=== PATIENT | male | born 1950 | race Caucasian/White ===

== ENCOUNTER 2016-07-09 12:43 | Inpatient (IN) | payer BC, OTHER ==
[~2016-07-09] VITALS: Ht 177.8 cm; Wt 108.0 kg
[~2016-07-09 12:43] MED LIST: ACET325T21; ASPI81TA2 PO; ATEN50TA PO; BUDE10.2 IH; CARI350T14 PO; CRESTOR40 MG PO; CYCL5TAB PO; DOXA2TAB2 PO; ENOX40DI3 SQ; FENO160T PO; FENT50VI IJ; FENT50VI6 IJ; FLUT1DIS3 IH; GABA600T2 PO; LOSA50TA6 PO; METF500T4 PO; METR500T IV; MULT-18 PO; OMEG500C PO; ONDA2VIA3 IV; OXYC15TA PO; OXYC1TAB9 PO; OXYC5TAB PO; POLY17PO29 PO; SENN1TAB37 PO; SENN8.6C2; TEMA30CA PO; TERA5CAP3 PO; TEST75GE TP; TRAM50TA PO; TRYP30OI2 TP; VANC1FRO IV; VITA400C36 PO; [UNRECOGNIZED DRUG - CODE] IV; [UNRECOGNIZED DRUG - CODE] PO
[2016-07-09 13:33] LABS: BASO # 0.1 x10^3/uL (0.0-0.2); BASO % 1 % (0-3); EOS % 2 % (0-3); HEMATOCRIT 48.2 % (39.0-53.0); HEMOGLOBIN 15.8 g/dL (13.0-17.5); LYMPH # 3.3 x10^3/uL (1.0-4.8); LYMPH % 37 % (24-48); MEAN CORPUSCULAR HEMOGLOBIN 28 pg (25-35); MEAN CORPUSCULAR HGB CONC 33 g/dL (31-37); MEAN CORPUSCULAR VOLUME 87 fL (79-100); MONO % 9 % (0-9); NEUT % 52 % (31-73); PLATELET COUNT 250 x10^3/uL (140-400); RED BLOOD COUNT 5.56 x10^6/uL (4.30-5.70); RED CELL DISTRIBUTION WIDTH 15.2 % (11.5-14.5); WHITE BLOOD COUNT 8.8 x10^3/uL (4.0-11.0)
[2016-07-09 13:42] LABS: PROTHROMBIN TIME PATIENT 12.9 SEC (11.7-14.0)
[2016-07-09 13:46] LABS: CALCIUM 8.5 mg/dL (8.5-10.1); CREATININE 1.1 mg/dL (0.7-1.3); GFR 67.4
[2016-07-09 13:46] LABS: BILIRUBIN,URINE NEGATIVE (NEG); GLUCOSE,URINE NEGATIVE (NEG); NITRITE,URINE NEGATIVE (NEG); PH,URINE 5.5; PROTEIN,URINE NEGATIVE (NEG-TRACE); UROBILINOGEN,URINE 0.2 mg/dL (0.2 mg/dL)
[2016-07-09 13:49] LABS: ETHANOL < 10 mg/dL (0-10)
[2016-07-09 13:52] LABS: ALBUMIN 3.3 g/dL (3.4-5.0); ALBUMIN/GLOBULIN RATIO 0.9 (1.0-1.7); TOTAL BILIRUBIN 0.3 mg/dL (0.2-1.0)
[2016-07-09 13:53] LABS: BARBITURATES NEG (NEG); BENZODIAZEPINES POS (NEG); CANNABINOIDS NEG (NEG); COCAINE NEG (NEG); METHADONE NEG (NEG); OPIATES POS (NEG); PHENCYCLIDINE NEG (NEG)
--- NOTE | 2016-07-09 14:00 | RAD ---
Examination: Single frontal view chest History: Shortness of breath, altered mental status. Comparison: 07/16/2013 Findings: The cardiomediastinal silhouette grossly appears unremarkable. There is no acute infiltrate or visualized pneumothorax. Right clavicle hardware is unchanged. Impression: No acute cardiopulmonary findings.
[2016-07-09 14:03] LABS: BACTERIA,URINE MANY /HPF (0-FEW); RBC,URINE 0 /HPF (0-2); SQUAMOUS EPITHELIAL CELL,UR OCC /LPF; WBC,URINE >40 /HPF (0-4)
--- NOTE | 2016-07-09 14:56 | RAD ---
CT head without contrast History: Altered mental status. Comparison: None. Procedure: Axial images are obtained of the head from the skull base through the vertex without IV contrast. Findings: Mild bilateral periventricular white matter hypodensities likely chronic small vessel ischemic disease. The ventricles and sulci are normal for the patient's age. No mass-effect, intracranial mass, midline shift, hemorrhage or obvious acute infarction is identified. Basilar cisterns are patent. Bone windows demonstrate no significant calvarial abnormality. The visualized paranasal sinuses appear clear. Impression: 1. No acute intracranial process. PQRS Compliance Statement: One or more of the following individualized dose reduction techniques were utilized for this examination: 1. Automated exposure control 2. Adjustment of the mA and/or kV according to patient size 3. Use of iterative reconstruction technique
[2016-07-09] MEDS ORDERED: NALOXONE 0.4 MG/ML VIAL. IV ONE (15:15)
[2016-07-09] MEDS ORDERED: IV NORMAL SALINE 1000ML BAG 1,000 ML IV ONE (15:15)
[2016-07-09] MEDS ORDERED: ACETAMINOPHEN 325 MG TABLET. PO PRN (15:15)
[2016-07-09] MEDS ORDERED: ONDANSETRON PF 4 MG/2 ML VIAL. IV PRN (15:15)
[2016-07-09] MEDS ORDERED: MORPHINE SULFATE 2 MG/ML DISP.SYRIN. IV PRN (15:15)
[2016-07-09] MEDS ORDERED: AZITHROMYCIN 500 MG in IV NORMAL SALINE 250ML 250 ML IV ONE (15:15)
[2016-07-09] MEDS ORDERED: AZITHRMYCN 500MG IVPB FOR OMNI 250 ML IV ONE (15:30)
--- NOTE | 2016-07-09 15:35 | PHYS DOC ---
Past Medical History Past Medical History: Asthma, Diabetes-Type II, High Cholesterol, Hypertension , Other Additional Past Medical Histor: PVD,INSOMNIA,SPINAL STENOSIS Past Surgical History: Other Additional Past Surgical Histo: RIGHT AKA Alcohol Use: Sober Additional Information: PATIENT STATES, "NOT IN A LONG TIME." Drug Use: None Adult General Chief Complaint Chief Complaint: ALTERED MENTAL STATUS HPI HPI Patient is a 66 year old male who presents with altered mental status. The patient states he wanted to see what would happen if he pulled the fire alarm at the [facility], so he tried it. He was then sent for evaluation because [facility] staff were concerned that he was acting abnormally. The patient denies any complaints at this time. States occasionally he feels somewhat confused and trails off when speaking. Denies fevers or chills, headache, vision changes, chest pain, shortness of breath, abdominal pain, nausea, vomiting, diarrhea, extremity numbness or weakness. History of DM, HTN, CAD s/ p cardiac stents. EMS says he is on dialysis which he denies. PCP is Dr. Rouse. Review of Systems Review of Systems Constitutional: Denies fever or chills Eyes: Denies change in visual acuity HENT: Denies nasal congestion or sore throat Respiratory: Denies cough or shortness of breath Cardiovascular: Denies chest pain or edema GI: Denies abdominal pain, nausea, vomiting, or diarrhea : Denies dysuria or hematuria Musculoskeletal: Denies back pain or joint pain Integument: Denies rash or skin lesions Neurologic: Reports altered mental status. Denies headache, focal weakness or sensory changes Current Medications Current Medications Allergies Allergies Allergies Coded Allergies Type Severity Reaction Last Updated Verified levofloxacin Allergy Intermediate 11/19/13 Yes Physical Exam Physical Exam Constitutional: obese, no acute distress, non-toxic appearance. HENT: Normocephalic, atraumatic, bilateral external ears normal, oropharynx moist, nose normal. Eyes: PERRLA, EOMI, conjunctiva normal, no discharge. Neck: supple, no stridor. Cardiovascular: RRR, no murmurs, no edema. Lungs & Thorax: LCTAB, no wheezing, no respiratory distress. Abdomen: soft, nontender, nondistended. Skin: Warm, dry, no erythema, no rash. Back: No tenderness. Extremities: No tenderness, no edema. right AKA Neurologic: Alert and oriented X 3, CN2-12 grossly intact, symmetric strength/ sensation to UE & LE, no focal deficits noted. Psychologic: flat affect Current Patient Data Vital Signs Vital Signs Date Time Temp Pulse Resp B/P (MAP) Pulse Ox O2 Delivery O2 Flow Rate FiO2 07/09/16 13:45 52 14 75/45 (55) 92 Nasal Cannula 2.0 07/09/16 12:43 98.6 98.6 Lab Values Laboratory Tests Test 07/09/16 13:18 07/09/16 13:38 White Blood Count 8.8 x10^3/uL (4.0-11.0) Red Blood Count 5.56 x10^6/uL (4.30-5.70) Hemoglobin 15.8 g/dL (13.0-17.5) Hematocrit 48.2 % (39.0-53.0) Mean Corpuscular Volume 87 fL (79-100) Mean Corpuscular Hemoglobin 28 pg (25-35) Mean Corpuscular Hemoglobin Concent 33 g/dL (31-37) Red Cell Distribution Width 15.2 % (11.5-14.5) H Platelet Count 250 x10^3/uL (140-400) Neutrophils (%) (Auto) 52 % (31-73) Lymphocytes (%) (Auto) 37 % (24-48) Monocytes (%) (Auto) 9 % (0-9) Eosinophils (%) (Auto) 2 % (0-3) Basophils (%) (Auto) 1 % (0-3) Neutrophils # (Auto) 4.6 x10^3uL (1.8-7.7) Lymphocytes # (Auto) 3.3 x10^3/uL (1.0-4.8) Monocytes # (Auto) 0.8 x10^3/uL (0.0-1.1) Eosinophils # (Auto) 0.1 x10^3/uL (0.0-0.7) Basophils # (Auto) 0.1 x10^3/uL (0.0-0.2) Prothrombin Time 12.9 SEC (11.7-14.0) Prothrombin Time INR 1.0 (0.8-1.1) PTT 34 SEC (24-38) Sodium Level 140 mmol/L (136-145) Potassium Level 5.0 mmol/L (3.5-5.1) Chloride Level 101 mmol/L (98-107) Carbon Dioxide Level 33 mmol/L (21-32) H Anion Gap 6 (6-14) Blood Urea Nitrogen 32 mg/dL (8-26) H Creatinine 1.1 mg/dL (0.7-1.3) Estimated GFR (Cockcroft-Gault) 67.4 BUN/Creatinine Ratio 29 (6-20) H Glucose Level 148 mg/dL (70-99) H Calcium Level 8.5 mg/dL (8.5-10.1) Total Bilirubin 0.3 mg/dL (0.2-1.0) Aspartate Amino Transferase (AST) 23 U/L (15-37) Alanine Aminotransferase (ALT) 27 U/L (16-63) Alkaline Phosphatase 89 U/L (46-116) Troponin I Quantitative 0.072 ng/mL (0.000-0.055) QU-Mvo-R-Type Natriuretic Peptide 797 pg/mL (0-124) H Total Protein 7.0 g/dL (6.4-8.2) Albumin 3.3 g/dL (3.4-5.0) L Albumin/Globulin Ratio 0.9 (1.0-1.7) L Salicylates Level 3.1 mg/dL (2.8-20.0) Salicylate Last Dose Date Unk Salicylate Last Dose Time Unk Acetaminophen Level < 2 mcg/ml (10-30) L Acetaminophen Last Dose Date Unk Acetaminophen Last Dose Time Unk Ethyl Alcohol Level < 10 mg/dL (0-10) Urine Collection Type Unknown Urine Color Yellow Urine Clarity Cloudy Urine pH 5.5 Urine Specific Ralph 1.010 Urine Protein Negative mg/dL (NEG-TRACE) Urine Glucose (UA) Negative mg/dL (NEG) Urine Ketones (Stick) Negative mg/dL (NEG) Urine Blood Negative (NEG) Urine Nitrite Negative (NEG) Urine Bilirubin Negative (NEG) Urine Urobilinogen Dipstick 0.2 mg/dL (0.2 mg/dL) Urine Leukocyte Esterase Large (NEG) Urine RBC 0 /HPF (0-2) Urine WBC >40 /HPF (0-4) Urine Squamous Epithelial Cells Occ /LPF Urine Bacteria Many /HPF (0-FEW) Urine Opiates Screen Pos (NEG) Urine Methadone Screen Neg (NEG) Urine Barbiturates Neg (NEG) Urine Phencyclidine Screen Neg (NEG) Urine Amphetamine/Methamphetamine Neg (NEG) Urine Benzodiazepines Screen Pos (NEG) Urine Cocaine Screen Neg (NEG) Urine Cannabinoids Screen Neg (NEG) Urine Ethyl Alcohol Neg (NEG) Laboratory Tests 07/09/16 13:18 Laboratory Tests 07/09/16 13:18 EKG EKG 1310 interpreted by me: NSR rate 56, <[address] elevation in 1 & aVL, <1mm ST depression with T wave inversion, T wave inversions in V3-V6, normal intervals, no ectopy. ischemic changes are new from 11/19/2013 1340 interpreted by me: NSR rate 53, persistent ischemic changes as above no significant change, normal intervals, no ectopy. Radiology/Procedures Radiology/Procedures PROCEDURE: CHEST AP ONLY Examination: Single frontal view chest History: Shortness of breath, altered mental status. Comparison: 07/16/2013 Findings: The cardiomediastinal silhouette grossly appears unremarkable. There is no acute infiltrate or visualized pneumothorax. Right clavicle hardware is unchanged. Impression: No acute cardiopulmonary findings. DICTATED and SIGNED BY: JYOTSNA MCDONALD MD DATE: 07/09/16 2579 PROCEDURE: CT HEAD WO CONTRAST CT head without contrast History: Altered mental status. Comparison: None. Procedure: Axial images are obtained of the head from the skull base through the vertex without IV contrast. Findings: Mild bilateral periventricular white matter hypodensities likely chronic small vessel ischemic disease. The ventricles and sulci are normal for the patient's age. No mass-effect, intracranial mass, midline shift, hemorrhage or obvious acute infarction is identified. Basilar cisterns are patent. Bone windows demonstrate no significant calvarial abnormality. The visualized paranasal sinuses appear clear. Impression: 1. No acute intracranial process. PQRS Compliance Statement: One or more of the following individualized dose reduction techniques were utilized for this examination: 1. Automated exposure control 2. Adjustment of the mA and/or kV according to patient size 3. Use of iterative reconstruction technique DICTATED and SIGNED BY: JYOTSNA MCDONALD MD DATE: 07/09/16 5565[] Course & Med Decision Making Course & Med Decision Making Pertinent Labs and Imaging studies reviewed. (See chart for details) Patient presents with altered mental status. No significant neurologic deficit. EKG showing ischemic changes from previous although denies any chest pain. Repeated EKG which showed no significant change. Consulted with Dr. Stauffer of cardiology, recommends serial EKG & troponin. Will give aspirin here. Patient had transient hypotension as low as 74/47, gave IV fluid bolus with improvement to low normal range. Hypoxic on arrival with oxygen saturation in the mid 80s. Placed oxygen by nasal cannula with improvement to mid 90s. Gave Narcan 0.4 mg IV and his blood pressure improved and he seemed more awake but during initial examination. No evidence of infection at this time, transiently hypotensive but no fever, tachycardia, leukocytosis. With low oxygen saturation will give single dose of Rocephin and azithromycin for possible pneumonia although symptoms more likely explained by overdose of pain medication. Recommended admission to the hospital for further evaluation and treatment. The patient agreed with plan of care. Discussed with Dr. Avalos who agrees to admit to inpatient status. The patient is admitted in stable condition. Dragon Disclaimer Dragon Disclaimer This electronic medical record was generated, in whole or in part, using a voice recognition dictation system. Departure Departure Impression: Primary Impression: Altered mental status Additional Impression: Hypotension Disposition: ADMITTED INPATIENT Condition: STABLE Problem Qualifiers AURA JACOB MD July 09, 2016 15:35
[2016-07-09] MEDS: IV NORMAL SALINE 1000ML BAG 1,000 ML IV SCH ×2 (16:00→23:50)
--- NOTE | 2016-07-09 16:04 | ACF ---
Admission Forms Criteria MENTAL STATUS CHANGE Clinical Indications for Inpatient Care (Place 'X' for any and all applicable criteria): Ongoing inpatient care may be needed for 1 or more of the following(1)(2)(3)(5)( 6): [X]I. Suspected serious etiology (eg, medical disorder, MANAGER STATISTICAL event) of altered mental status [ ]II. Danger to self or others not manageable at lower level of care [ ]III. Grave disability (eg, inability to perform self care necessary at lower level of care) [ ]IV. Agitation or inappropriate behavior interfering with care for primary condition (eg, attempting to discontinue lines or drains prematurely, unable to cooperate with respiratory care) [ ]V. Delirium [A] [D][E] as described by 1 or more of the following(26): [ ]a) Delirium due to alcohol or sedative [F] withdrawal [ ]b) Delirium of uncertain etiology that has not responded to appropriate empiric treatment [ ]c) Delirium that prevents performance of a life-sustaining function (eg, feeding or hydrating oneself) [ ]. General contraindications and/or Inappropriate clinical situations for Observational Care in patients with Mental Status Change, when ANY ONE of the following is required: [ ]a) Prediction of prolongation of LOS based on ANY ONE of the following may be considered as a contraindication for observational care 2, 3, 4, 5, 6, 7, 8, 9, 10, 11 [ ]i) Age > 65 yrs. [ ]ii) Patient arriving by ambulance [ ]iii) Patient with high acuity [ ]iv) Patient requiring vital sign monitoring [ ]v) Patient on IV medication [ ]b) Systolic blood pressures greater than or equal to 180mmHg 3, 12 [ ]c) Patient with altered mental status including delirium and other alteration of consciousness, (3) [ ]d) Patient whose discharge disposition will be to a fdc home or rehabilitation home should not be managed in Emergency Department Observation Unit. CMS rule requires 3 days hospital stay before such placement.3,13 [ ]e) Patient with failure to thrive due to broad array of etiologies 3,16,17 [ ]f) Inability to ambulate 3,14 Extended stay beyond goal length of stay for the primary condition may be needed until ALL of the following are present(3)(5): [ ]a) Underlying medical etiology of mental status change is absent, or has been established and adequately treated [ ]b) Danger to self or others is absent or manageable at lower level of care. [ ]c) Behavior crisis management, including physical or chemical restraints, is not required or available at lower level of car [ ]d) Substance or alcohol withdrawal is absent or manageable at lower level of care. [ ]e) Behavioral symptoms (eg, agitation, somnolence, inappropriate behavior) are absent, or are manageable at lower level of care. The original [facility] content created by [facility] has been revised. The portions of the content which have been revised are identified through the use of italic text or in bold, and [facility] has neither reviewed nor approved the modified material. All other unmodified content is copyright [facility]. Please see references footnoted in the original [facility] edition 2016 Admission Criteria Met?: Yes ROSSY CHAIREZ July 09, 2016 16:04
[2016-07-09] MEDS ORDERED: ASPIRIN 325 MG TABLET PO ONE (16:45)
[2016-07-09] MEDS ORDERED: ACET325T9 PO (18:56)
[2016-07-09] MEDS ORDERED: TEST5GEL TP (18:59)
[2016-07-09] MEDS ORDERED: ASCO500T3 PO (19:01)
[2016-07-09] MEDS ORDERED: BACL10TA PO (19:03)
[2016-07-09] MEDS ORDERED: INSU100C SQ (19:05)
[2016-07-09] MEDS ORDERED: INSU100I11 SQ (19:08)
[2016-07-09] MEDS ORDERED: INSU100V8 SQ (19:11)
[2016-07-09] MEDS ORDERED: LOPE2CAP88 PO (19:11)
[2016-07-09] MEDS ORDERED: FURO-68 PO (19:11)
[2016-07-09] MEDS ORDERED: ESCI10TA PO (19:12)
[2016-07-09] MEDS ORDERED: ESCI5TAB8 PO (19:13)
[2016-07-09] MEDS ORDERED: PREG75CA PO (19:14)
[2016-07-09] MEDS ORDERED: MAGN400C PO (19:15)
[2016-07-09] MEDS ORDERED: NITR0.4T SL (19:17)
[2016-07-09] MEDS ORDERED: MORP30TA83 PO (19:17)
[2016-07-09] MEDS ORDERED: AMLO10TA4 PO (19:18)
[2016-07-09] MEDS ORDERED: POTASSIUM CHLO10 MEQ PO (19:21)
[2016-07-09] MEDS ORDERED: OXYC15TA PO (19:21)
[2016-07-09] MEDS ORDERED: CARI350T PO (19:26)
[2016-07-09] MEDS ORDERED: [UNRECOGNIZED DRUG - CODE] PO (19:27)
[2016-07-09] MEDS ORDERED: CHOL500016 PO (19:28)
[2016-07-09 19:30] VITALS: BP 91/53
[2016-07-09] MEDS ORDERED: ZINC30OI TP (19:30)
--- NOTE | 2016-07-09 20:10 | HP ---
ADMIT DATE: 07/09/2016 CHIEF COMPLAINT: Confusion. HISTORY OF PRESENT ILLNESS: The patient is a 66-year-old gentleman residing in the [facility] for the past 3 years with past medical history of right AKA, diabetes mellitus, and hypertension who presented to the hospital with altered mental status at the long term. According to crew, and he does confirm the account, he decided to find out what would happen if he pulled the fire alarm. He relates that he initially thought that the fire alarm box itself seemed a little rickety on the wall, and he wanted to test its sturdiness and managed to pull the lever. He then decided to observe what would happen and was apparently disappointed that the fire crew did not arrive for 20 minutes and people were not evacuated, although he told them that he had pulled the fire alarm to "test them." He denies any fevers, chills, headaches, vision problems, urinary complaints, chest pain, shortness of breath, cough, or abdominal issues including nausea and diarrhea. His family including his brother and daughter are present during the exam and relate that his mental status seems to be currently at baseline. In the Emergency Room, he was found with hypotension, positive UA, and therefore was admitted with suspected urosepsis. PAST MEDICAL HISTORY: Diabetes mellitus, hypertension, hypercholesterolemia, asthma, peripheral vascular disease, spinal stenosis with chronic lower back pain, and insomnia. FAMILY HISTORY: Positive for hypertension and diabetes. SOCIAL HISTORY: Currently in a long term. No toxic habits. ALLERGIES: LEVOFLOXACIN, UNKNOWN REACTION. MEDICATIONS: MAR reconciled with home medications. REVIEW OF SYSTEMS: The patient complains of lower back pain and leg pain. He states both of these are chronic. He denies any shortness of breath or any other symptoms. Please refer to HPI. PHYSICAL EXAMINATION: VITAL SIGNS: Currently show a blood pressure of 98/51, heart rate of 54, and respiratory rate of 14. No temperature available. GENERAL: This is a morbidly obese, 66-year-old, gentleman. Awake, alert, oriented x3, save for exact date, in no acute distress. Speech is slightly slurred, apparently normal for him. HEENT: Shows no scleral icterus. NECK: Supple. Oral mucosa is pink and moist. LUNGS: Clear to auscultation bilaterally. HEART: Has regular rate and rhythm. ABDOMEN: Obese, positive bowel sounds without any tenderness to palpation. EXTREMITIES: Show no edema. Right lower extremity is surgically absent below the upper thigh. SKIN: Warm, soft, and dry without any rash. LABORATORY DATA: CBC with a WBC of 8.8, hemoglobin 15.8, and platelets of 250. Chemistries with a BUN and creatinine of 32 and 1.1, normal electrolytes. LFTs are within normal, albumin is 3.3. Urine with large leukocyte esterase, wbc's greater than 40, and nitrite negative. On toxicity screen, opiates as well as benzodiazepines are positive. IMAGING: CT of the head is essentially negative for acute intracranial process. Chest x-ray obtained as well showing no cardiopulmonary findings. ASSESSMENT AND PLAN: The patient is a 66-year-old long term patient with diabetes, hypertension, and peripheral vascular disease who presented with mild mental status changes and has been found with a urinary tract infection. He has been started empirically on ceftriaxone. He got azithromycin in the Emergency Room as well for unclear reasons. We will continue IV fluids as needed to maintain his blood pressure, currently fairly stable. Monitor him closely with vital signs. Diabetes mellitus is currently fairly well controlled. We will continue insulin sliding scale with a glucose fingersticks 4 times a day. We will continue all his home medications. The list is extensive. Multiple pain medications for his back pain specifically will be continued, albeit with caution, given his mental status. Prophylaxis will be obtained with heparin subcutaneous. CHANCE COFFEY MD DR: MICHAEL/eric JOB#: [id number] / [id number] [place]
[2016-07-09 23:30] VITALS: BP 148/73
[2016-07-10] VITALS (7 sets, daily range): BP systolic 158–217; BP diastolic 69–92
[2016-07-10] MEDS: IV NORMAL SALINE 1000ML BAG 1,000 ML IV SCH ×2 (07:31→19:11)
[2016-07-10] MEDS ORDERED: ATENOLOL 25 MG TABLET. PO SCH (09:00)
[2016-07-10] MEDS: amLODIPine BESYLATE 10 MG TABLET PO SCH (09:00)
[2016-07-10] MEDS ORDERED: LOSARTAN POTASSIUM 50 MG TABLET. PO SCH (09:00)
--- NOTE | 2016-07-10 09:04 | PDOC2 ---
CARDIOLOGY CONSULT NOTE CHEIF COMPLAINT: Confusion Problems: HPI: 66 y.o male with mmp presenting with mental status changes Pulled fire alarm at [facility] for unclear reasons. Found to have urosepsis in ER Cardiology called for elevated troponin and non-specific EKG changes Poor historian. Denies any recent chest pain, dyspnea. Currently struggling with nausea. Reports prior history of PCI but also notes some abn recent stress testing. ? Unclear historian. Trop peak at 0.1 PMHX: Biliary stents HTN DM2 PAD s/p R aka CAD s/p PCI SOCHX: Lives at [facility]. Denies any alcohol, tob or illicits. FAMHX: NC CURRENT MEDS: Current Medications Medications (Trade) Dose Ordered Sig/Aimee Start Time Stop Time Status Last Admin Dose Admin Acetaminophen (Tylenol) 650 mg PRN Q4HRS PRN 07/09/16 15:15 07/10/16 15:14 Aspirin (Juan Francisco Aspirin) 325 mg 1X ONCE 07/09/16 16:45 07/09/16 16:46 DC 07/09/16 16:44 325 MG Azithromycin 250 ml @ 250 mls/hr 1X ONCE 07/09/16 15:30 07/09/16 16:29 DC 07/09/16 16:44 250 MLS/HR Azithromycin 500 mg/Sodium Chloride 250 ml @ 250 mls/hr 1X ONCE 07/09/16 15:15 07/09/16 16:14 UNV Ceftriaxone Sodium 1 gm/ Sodium Chloride 50 ml @ 100 mls/hr Q24H 07/10/16 09:00 Ceftriaxone Sodium 50 ml @ 100 mls/hr 1X ONCE 07/09/16 15:15 07/09/16 15:44 DC 07/09/16 15:59 100 MLS/HR Morphine Sulfate 2 mg PRN Q2HR PRN 07/09/16 15:15 07/10/16 15:14 Naloxone HCl (Narcan) 0.4 mg 1X ONCE 07/09/16 15:15 07/09/16 15:24 DC 07/09/16 15:35 0.4 MG Ondansetron HCl (Zofran) 4 mg PRN Q8HRS PRN 07/09/16 15:15 07/10/16 15:14 07/10/16 08:39 4 MG Sodium Chloride 1,000 ml @ 1,000 mls/hr 1X ONCE 07/09/16 15:15 07/09/16 16:14 DC 07/09/16 14:00 1,000 MLS/HR ALLERGIES: Allergies Coded Allergies Type Severity Reaction Last Updated Verified levofloxacin Allergy Intermediate 11/19/13 Yes ROS: Negative for 12/10 systems reviewed unless otherwise noted above in HPI. PHYSICAL EXAM: Vital Signs: Vital Signs Date Time Temp Pulse Resp B/P (MAP) Pulse Ox O2 Delivery O2 Flow Rate FiO2 07/10/16 02:33 98.0 72 18 171/69 (103) 93 Nasal Cannula 2.0 98.0 I & O Intake and Output 07/10/16 07:00 Intake Total 2650 ml Balance 2650 ml Intake Oral 100 ml IV Total 2550 ml # Voids 6 # Bowel Movements 1 Physical Exam: Gen: He is distressed from n/v HEENT: NC/AT. EOMI CVS: RRR. no m/r/g, distant heart sounds PULM: Decreased breath sounds at the bases. ABD: Soft, mildly tender to palpation. EXT: No edema in the LLE. Diminished pulses. DIAGNOSTIC TESTING: Cr 1.1, Trop peak 0.1. BNP 797, UA > [address] head and cXR negative. EKG with SR and non-specific ST/T changes. No clear ELMER ASSESSMENT: 1. Elevated troponin in the setting of urosepsis 2. HTN 3. PAD 4. CAD s/p prior remote PCI. PLAN: 1. Continue home meds. 2. Currently his EKG and biomarkers in conjunction with his symptoms/ presentation do not seem to represent a ischemic insult, nonetheless given his risk factors, he probably warrants a stress evaluation after stabilization of his urosepsis issues. 3. Supportive care with IV hydralazine for BP control until able to tolerate p.o. 4. Suspect trop elevation due to infection. Continue to monitor for symptoms. JIL CHRISTENSEN MD July 10, 2016 09:04
[2016-07-10] MEDS: hydrALAZINE 20 MG/ML VIAL. IVP PRN ×3 (09:08→19:07)
[2016-07-10] MEDS: METOCLOPRAMIDE HCL 10 MG/2 ML VIAL. IV PRN (09:54)
--- NOTE | 2016-07-10 12:49 | EKG ---
[facility] [address] [place] [address] Test Date: 2016-07-09 Test Time: 13:10:25 Pat Name: MAGDA SAUCEDO Department: Room: 252 1 Gender: Male Metal Technician: : 1950 Requested By: AURA JACOB Order Number: [id number] Reading MD: Ananda Stauffer Measurements Intervals [place] Rate: 56 P: 59 CT: 198 QRS: -24 QRSD: 88 T: -26 QT: 378 QTc: 367 Interpretive Statements SINUS RHYTHM NON-SPECIFIC ST/T CHANGES CANNOT RULE OUT ISCHEMIA Electronically Signed On 07-11-2016 15:01:33 CDT by Ananda Stauffer
--- NOTE | 2016-07-10 12:50 | EKG ---
[facility] [address] [place] [address] Test Date: 2016-07-09 Test Time: 13:40:56 Pat Name: MAGDA SAUCEDO Department: Room: 252 1 Gender: Male Technology Sales Representative: : 1950 Requested By: AURA JACOB Order Number: [id number] Reading MD: Ananda Stauffer Measurements Intervals [place] Rate: 53 P: 41 MD: 202 QRS: -26 QRSD: 88 T: -54 QT: 388 QTc: 366 Interpretive Statements SINUS RHYTHM NON-SPECIFIC ST/T CHANGES CANNOT RULE OUT INFERO-LATERAL ISCHEMIA Electronically Signed On 07-11-2016 15:01:52 CDT by Ananda Stauffer
--- NOTE | 2016-07-10 13:02 | EKG ---
[facility] [address] [place] [address] Test Date: 2016-07-10 Test Time: 04:58:08 Pat Name: MAGDA SAUCEDO Department: Room: 252 1 Gender: Male Science Consultant: KOKI : 1950 Requested By: AURA JACOB Order Number: [id number] Reading MD: Ananda Stauffer Measurements Intervals [place] Rate: 77 P: 54 AL: 202 QRS: -26 QRSD: 88 T: -77 QT: 320 QTc: 364 Interpretive Statements SINUS RHYTHM LEFTWARD AXIS R-S TRANSITION ZONE IN V LEADS DISPLACED TO THE LEFT LVH WITH REPOLARIZATION ABNORMALITY ABNORMAL ECG CANNOT RULE OUT INFEROLATERAL ISCHEMIA Electronically Signed On 07-12-2016 9:55:02 CDT by Ananda Stauffer
--- NOTE | 2016-07-10 14:57 | PDOC ---
PROGRESS NOTES Chief Complaint Chief Complaint AMS ASSESSMENT AND PLAN: 1. Toxic encephalopathy from infect (GNR UTI). improving 2. UTI: GNR in prelim report. ceftriax empirically 3. C.diff colitis: new dx. start vanco PO 4. DM: well controlled on current regimen. 5. HTN: poorly controlled today (recovered from hypotension). resume home regimen 6. PAD: hx AKA. no acute issues 7. Chronic back pain: cont home pain regimen 8. Prophylaxis: lovenox History of Present Illness History of Present Illness feels poorly today. generalized malaise, myalgias. denies abd pain. + diarrhea Vitals Vitals Vital Signs Date Time Temp Pulse Resp B/P (MAP) Pulse Ox O2 Delivery O2 Flow Rate FiO2 07/10/16 13: 109 179/83 07/10/16 11:49 98.0 22 93 Room Air 98.0 07/10/16 08:15 2.0 Physical Exam General: Alert, Cooperative, No acute distress Heart: Regular rate Lungs: Clear Abdomen: No tenderness, Other (decreased bowel sounds) Extremities: Other (trace edema L LE. AKA R) Skin: No rashes Labs LABS Laboratory Tests Test 07/09/16 15:50 07/09/16 19:45 07/09/16 19:49 07/09/16 20:45 Lactic Acid Level 2.0 mmol/L (0.4-2.0) Nasal Screen MRSA (PCR) Negative (Negative) Glucose (Fingerstick) 109 mg/dL (70-99) Troponin I Quantitative 0.074 ng/mL (0.000-0.055) Test 07/09/16 21:12 07/10/16 03:30 07/10/16 06:30 07/10/16 08:41 Glucose (Fingerstick) 170 mg/dL (70-99) 151 mg/dL (70-99) Troponin I Quantitative 0.100 ng/mL (0.000-0.055) Clostridium difficile Toxin (PCR) Positive (Negative) Test 07/10/16 11:41 07/10/16 14:00 Glucose (Fingerstick) 175 mg/dL (70-99) Troponin I Quantitative 0.061 ng/mL (0.000-0.055) CHANCE COFFEY MD July 10, 2016 14:57
[2016-07-10] MEDS: PREGABALIN 75 MG CAPSULE PO SCH ×2 (15:00→21:00)
[2016-07-10] MEDS ORDERED: ACETAMINOPHEN 325 MG TABLET. PO PRN (15:00)
[2016-07-10] MEDS ORDERED: CARISOPRODOL 350 MG TABLET PO PRN (15:00)
[2016-07-10] MEDS ORDERED: NITROGLYCERIN SUBLINGUAL 0.4 MG BOTTLE OF 25. SL PRN (15:00)
[2016-07-10] MEDS ORDERED: oxyCODONE IR 5 MG TABLET PO PRN (15:30)
[2016-07-10] MEDS: ASCORBIC ACID 500 MG TABLET PO SCH (16:00)
[2016-07-10] MEDS: ASPIRIN CHEWABLE 81 MG TABLET. PO SCH (16:00)
[2016-07-10] MEDS: FUROSEMIDE 40 MG TABLET. PO SCH (16:00)
[2016-07-10] MEDS: LOSARTAN POTASSIUM 50 MG TABLET. PO SCH (16:00)
[2016-07-10] MEDS: VANCOMYCIN 250 MG/5 ML ORAL SOLUTION. PO SCH ×2 (16:04→21:51)
[2016-07-10] MEDS: PROCHLORPERAZINE 10 MG/2 ML VIAL. IV PRN (16:04)
[2016-07-10] MEDS: INSULIN ASPART 300 UNITS/3 ML INSULN.PEN SQ SCH ×2 (16:30)
[2016-07-10] MEDS: ONDANSETRON PF 4 MG/2 ML VIAL. IV PRN (19:10)
[2016-07-10] MEDS ORDERED: LABETALOL 20 MG/4 ML DISP.SYRIN. IVP PRN (20:15)
[2016-07-10] MEDS: ESCITALOPRAM 10 MG TABLET. PO SCH (21:00)
[2016-07-10] MEDS ORDERED: ATORVASTATIN CALCIUM 40 MG TABLET. PO SCH (21:00)
[2016-07-10] MEDS: ATENOLOL 50 MG TABLET. PO SCH (21:00)
[2016-07-10] MEDS: ATORVASTATIN CALCIUM 40 MG TABLET. PO SCH (21:00)
[2016-07-10] MEDS: MORPHINE ER 15 MG TABLET.ER PO SCH (21:00)
[2016-07-10] MEDS: INSULIN DETEMIR 300 UNITS/3 ML INSULN.PEN. SQ SCH (21:51)
[2016-07-11] MEDS: PROCHLORPERAZINE 10 MG/2 ML VIAL. IV PRN (01:43)
[2016-07-11 03:00] VITALS: BP 186/90
[2016-07-11] MEDS: hydrALAZINE 20 MG/ML VIAL. IVP PRN (03:26)
[2016-07-11] MEDS: METOCLOPRAMIDE HCL 10 MG/2 ML VIAL. IV PRN ×2 (03:26→14:23)
[2016-07-11] MEDS: ONDANSETRON PF 4 MG/2 ML VIAL. IV PRN (05:38)
[2016-07-11 05:59] LABS: CALCIUM 8.9 mg/dL (8.5-10.1); CREATININE 0.8 mg/dL (0.7-1.3); GFR 97.3; MAGNESIUM 1.5 mg/dL (1.8-2.4)
[2016-07-11 06:04] LABS: HEMATOCRIT 52.6 % (39.0-53.0); HEMOGLOBIN 17.7 g/dL (13.0-17.5); POTASSIUM 2.8 mmol/L (3.5-5.1); RED BLOOD COUNT 6.24 x10^6/uL (4.30-5.70); RED CELL DISTRIBUTION WIDTH 15.1 % (11.5-14.5)
[2016-07-11 07:00] VITALS: BP 156/83
[2016-07-11] MEDS ORDERED: POTASSIUM CHLORIDE 20 MEQ TABLET.ER. PO ONE ×3 (07:00→18:30)
[2016-07-11] MEDS: INSULIN ASPART 300 UNITS/3 ML INSULN.PEN SQ SCH ×6 (07:30→18:37)
[2016-07-11] MEDS: POTASSIUM CHLORIDE 10MEQ 100 ML IV SCH ×4 (08:00→12:10)
--- NOTE | 2016-07-11 08:20 | EKG ---
[facility] [address] [place] [address] Test Date: 2016-07-11 Test Time: 07:59:45 Pat Name: MAGDA SAUCEDO Department: Room: 534 1 Gender: M Electronic Gluer: : 1950 Requested By: AURA JACOB Order Number: [id number] Reading MD: Ananda Stauffer Measurements Intervals [place] Rate: 76 P: 43 TN: 188 QRS: -39 QRSD: 90 T: -65 QT: 448 QTc: 509 Interpretive Statements SINUS RHYTHM ANTERIOR ISCHEMIA OR LEFT VENTRICULAR STRAIN LATERAL ISCHEMIA OR LEFT VENTRICULAR STRAIN POSSIBLE INFERIOR INFARCT Electronically Signed On 07-12-2016 10:43:44 CDT by Ananda Stauffer
[2016-07-11] MEDS: VANCOMYCIN 250 MG/5 ML ORAL SOLUTION. PO SCH ×4 (08:37→20:48)
[2016-07-11] MEDS: IV NORMAL SALINE 1000ML BAG 1,000 ML IV SCH ×2 (08:37→23:03)
[2016-07-11] MEDS: PREGABALIN 75 MG CAPSULE PO SCH ×3 (09:00→20:50)
[2016-07-11] MEDS: FUROSEMIDE 40 MG TABLET. PO SCH (09:00)
[2016-07-11] MEDS: CARISOPRODOL 350 MG TABLET PO SCH (09:00)
[2016-07-11] MEDS: ASPIRIN CHEWABLE 81 MG TABLET. PO SCH (09:00)
[2016-07-11] MEDS ORDERED: amLODIPine BESYLATE 10 MG TABLET PO SCH (09:00)
[2016-07-11] MEDS: ASCORBIC ACID 500 MG TABLET PO SCH (09:00)
[2016-07-11 11:00] VITALS: BP 191/83
--- NOTE | 2016-07-11 12:14 | PDOC ---
CARDIO Progress Notes Date and Time Date of Service 07/11/2016 Time of Evaluation 1200 Subjective Subjective: No Chest Pain, No Palpitations, No Dizziness, Other (cough) Vitals Vitals Vital Signs Date Time Temp Pulse Resp B/P (MAP) Pulse Ox O2 Delivery O2 Flow Rate FiO2 07/11/16 05:39 97 183/79 07/11/16 03:00 99.0 20 92 Nasal Cannula 2.0 99.0 Weight Weight [ ] Input and Output Intake and Output Intake and Output 07/11/16 07:00 Intake Total 665 ml Output Total 350 ml Balance 315 ml IV Total 665 ml Output Emesis 350 ml # Voids 2 # Bowel Movements 5 Laboratory Labs Laboratory Tests Test 07/10/16 14:00 07/10/16 17:20 07/10/16 20:55 07/11/16 05:40 Troponin I Quantitative 0.061 ng/mL (0.000-0.055) Glucose (Fingerstick) 206 mg/dL (70-99) 225 mg/dL (70-99) White Blood Count 14.0 x10^3/uL (4.0-11.0) Red Blood Count 6.24 x10^6/uL (4.30-5.70) Hemoglobin 17.7 g/dL (13.0-17.5) Hematocrit 52.6 % (39.0-53.0) Mean Corpuscular Volume 84 fL (79-100) Mean Corpuscular Hemoglobin 28 pg (25-35) Mean Corpuscular Hemoglobin Concent 34 g/dL (31-37) Red Cell Distribution Width 15.1 % (11.5-14.5) Platelet Count 264 x10^3/uL (140-400) Sodium Level 145 mmol/L (136-145) Potassium Level 2.8 mmol/L (3.5-5.1) Chloride Level 105 mmol/L (98-107) Carbon Dioxide Level 28 mmol/L (21-32) Anion Gap 12 (6-14) Blood Urea Nitrogen 10 mg/dL (8-26) Creatinine 0.8 mg/dL (0.7-1.3) Estimated GFR (Cockcroft-Gault) 97.3 Glucose Level 219 mg/dL (70-99) Calcium Level 8.9 mg/dL (8.5-10.1) Magnesium Level 1.5 mg/dL (1.8-2.4) Test 07/11/16 07:21 07/11/16 10:50 Glucose (Fingerstick) 214 mg/dL (70-99) 225 mg/dL (70-99) Microbiology Micro Microbiology 07/09/16 Blood Culture - Preliminary, Resulted NO GROWTH AFTER 1 DAY 07/09/16 Urine Culture - Preliminary, Resulted 07/09/16 Urine Culture Result 1 (PUMA) - Preliminary, Resulted Physical Exam HEENT: Neck Supple W Full Motion Chest: Symmetric, Other (reproducible CP in lower 1/3 of sternum) LUNGS: Other (decreased in bases anteriorly) Heart: S1S2, RRR, no murmurs Abdomen: Other (distended abdomen) Extremities: Other (right AKA amputation; 2+ LLE edema) Neurology: alert Assessment Assessment 1. Elevated troponin in the setting of sepsis troponin peaked at 0.1 associated with encephalopathy will request ST done in the last 2 years @ [facility] echo to evaluate for WMA ? reproducible 2. HTN not controlled; has refused meds lowered parameters on labetalol also has IV hydralazine prn 3. PAD previous right AKA 4. CAD s/p prior remote PCI requesting records from SUDHA CHEUNG APRN July 11, 2016 12:14
[2016-07-11] MEDS ORDERED: MAGNESIUM SULFATE 2GM 50 ML IV ONE (13:00)
[2016-07-11] MEDS: LOSARTAN POTASSIUM 50 MG TABLET. PO SCH (13:56)
--- NOTE | 2016-07-11 14:15 | PDOC ---
PROGRESS NOTES Chief Complaint Chief Complaint 1. Toxic encephalopathy from infection 2. UTI: GNR ceftriaxone 3. C.diff colitis: new dx. start vanco PO 4. DM: well controlled on current regimen. 5. HTN: poorly controlled today (recovered from hypotension). resume home regimen 6. PAD: hx AKA. no acute issues 7. Chronic back pain: cont home pain regimen 8. Prophylaxis: lovenox History of Present Illness History of Present Illness feels poorly today. generalized malaise, myalgias. denies abd pain. + diarrhea Vitals Vitals Vital Signs Date Time Temp Pulse Resp B/P (MAP) Pulse Ox O2 Delivery O2 Flow Rate FiO2 07/11/16 05:39 97 183/79 07/11/16 03:00 99.0 20 92 Nasal Cannula 2.0 99.0 Physical Exam General: Alert, Cooperative, No acute distress Heart: Regular rate Lungs: Clear Abdomen: No tenderness, Other (decreased bowel sounds) Extremities: Other (trace edema L LE. AKA R) Skin: No rashes Labs LABS Laboratory Tests Test 07/10/16 17:20 07/10/16 20:55 07/11/16 05:40 07/11/16 07:21 Glucose (Fingerstick) 206 mg/dL (70-99) 225 mg/dL (70-99) 214 mg/dL (70-99) White Blood Count 14.0 x10^3/uL (4.0-11.0) Red Blood Count 6.24 x10^6/uL (4.30-5.70) Hemoglobin 17.7 g/dL (13.0-17.5) Hematocrit 52.6 % (39.0-53.0) Mean Corpuscular Volume 84 fL (79-100) Mean Corpuscular Hemoglobin 28 pg (25-35) Mean Corpuscular Hemoglobin Concent 34 g/dL (31-37) Red Cell Distribution Width 15.1 % (11.5-14.5) Platelet Count 264 x10^3/uL (140-400) Sodium Level 145 mmol/L (136-145) Potassium Level 2.8 mmol/L (3.5-5.1) Chloride Level 105 mmol/L (98-107) Carbon Dioxide Level 28 mmol/L (21-32) Anion Gap 12 (6-14) Blood Urea Nitrogen 10 mg/dL (8-26) Creatinine 0.8 mg/dL (0.7-1.3) Estimated GFR (Cockcroft-Gault) 97.3 Glucose Level 219 mg/dL (70-99) Calcium Level 8.9 mg/dL (8.5-10.1) Magnesium Level 1.5 mg/dL (1.8-2.4) Test 07/11/16 10:50 Glucose (Fingerstick) 225 mg/dL (70-99) Review of Systems Review of Systems + nausea on clears, poor PO intake has not worn his r leg prosthesis in a long time, maybe years Assessment and Plan Assessmemt and Plan Problems Medical Problems: (1) Altered mental status Status: Acute (2) Hypotension Status: Acute Problems: Comment Review of Relevant I have reviewed the following items marcelle (where applicable) has been applied. Labs Laboratory Tests Test 07/09/16 15:50 07/09/16 19:45 07/09/16 19:49 07/09/16 20:45 Lactic Acid Level 2.0 mmol/L (0.4-2.0) Nasal Screen MRSA (PCR) Negative (Negative) Glucose (Fingerstick) 109 mg/dL (70-99) Troponin I Quantitative 0.074 ng/mL (0.000-0.055) Test 07/09/16 21:12 07/10/16 03:30 07/10/16 06:30 07/10/16 08:41 Glucose (Fingerstick) 170 mg/dL (70-99) 151 mg/dL (70-99) Troponin I Quantitative 0.100 ng/mL (0.000-0.055) Clostridium difficile Toxin (PCR) Positive (Negative) Test 07/10/16 11:41 07/10/16 14:00 07/10/16 17:20 07/10/16 20:55 Glucose (Fingerstick) 175 mg/dL (70-99) 206 mg/dL (70-99) 225 mg/dL (70-99) Troponin I Quantitative 0.061 ng/mL (0.000-0.055) Test 07/11/16 05:40 07/11/16 07:21 07/11/16 10:50 White Blood Count 14.0 x10^3/uL (4.0-11.0) Red Blood Count 6.24 x10^6/uL (4.30-5.70) Hemoglobin 17.7 g/dL (13.0-17.5) Hematocrit 52.6 % (39.0-53.0) Mean Corpuscular Volume 84 fL (79-100) Mean Corpuscular Hemoglobin 28 pg (25-35) Mean Corpuscular Hemoglobin Concent 34 g/dL (31-37) Red Cell Distribution Width 15.1 % (11.5-14.5) Platelet Count 264 x10^3/uL (140-400) Sodium Level 145 mmol/L (136-145) Potassium Level 2.8 mmol/L (3.5-5.1) Chloride Level 105 mmol/L (98-107) Carbon Dioxide Level 28 mmol/L (21-32) Anion Gap 12 (6-14) Blood Urea Nitrogen 10 mg/dL (8-26) Creatinine 0.8 mg/dL (0.7-1.3) Estimated GFR (Cockcroft-Gault) 97.3 Glucose Level 219 mg/dL (70-99) Calcium Level 8.9 mg/dL (8.5-10.1) Magnesium Level 1.5 mg/dL (1.8-2.4) Glucose (Fingerstick) 214 mg/dL (70-99) 225 mg/dL (70-99) Laboratory Tests Test 07/10/16 17:20 07/10/16 20:55 07/11/16 05:40 07/11/16 07:21 Glucose (Fingerstick) 206 mg/dL (70-99) 225 mg/dL (70-99) 214 mg/dL (70-99) White Blood Count 14.0 x10^3/uL (4.0-11.0) Red Blood Count 6.24 x10^6/uL (4.30-5.70) Hemoglobin 17.7 g/dL (13.0-17.5) Hematocrit 52.6 % (39.0-53.0) Mean Corpuscular Volume 84 fL (79-100) Mean Corpuscular Hemoglobin 28 pg (25-35) Mean Corpuscular Hemoglobin Concent 34 g/dL (31-37) Red Cell Distribution Width 15.1 % (11.5-14.5) Platelet Count 264 x10^3/uL (140-400) Sodium Level 145 mmol/L (136-145) Potassium Level 2.8 mmol/L (3.5-5.1) Chloride Level 105 mmol/L (98-107) Carbon Dioxide Level 28 mmol/L (21-32) Anion Gap 12 (6-14) Blood Urea Nitrogen 10 mg/dL (8-26) Creatinine 0.8 mg/dL (0.7-1.3) Estimated GFR (Cockcroft-Gault) 97.3 Glucose Level 219 mg/dL (70-99) Calcium Level 8.9 mg/dL (8.5-10.1) Magnesium Level 1.5 mg/dL (1.8-2.4) Test 07/11/16 10:50 Glucose (Fingerstick) 225 mg/dL (70-99) Microbiology 07/09/16 Blood Culture - Preliminary, Resulted NO GROWTH AFTER 1 DAY 07/09/16 Urine Culture - Final, Complete 07/09/16 Urine Culture Result 1 (PUMA) - Final, Complete 07/09/16 Antimicrobic Susceptibility - Final, Complete Medications Current Medications Ondansetron HCl (Zofran) 4 mg PRN Q8HRS PRN IV NAUSEA/VOMITING Last administered on 07/10/16 08:39; Start 07/09/16 at 15:15; Stop 07/10/16 at 15:21 ; Status DC Morphine Sulfate 2 mg PRN Q2HR PRN IV PAIN; Start 07/09/16 at 15:15; Stop 07/10 at 15:21; Status DC Sodium Chloride 1,000 ml @ 125 mls/hr Q8H IV Last administered on 07/10/16 07 :31; Start 07/09/16 at 15:09; Stop 07/10/16 at 15:21; Status DC Acetaminophen (Tylenol) 650 mg PRN Q4HRS PRN PO FEVER; Start 07/09/16 at 15:15 ; Stop 07/10/16 at 15:21; Status DC Naloxone HCl (Narcan) 0.4 mg 1X ONCE IV Last administered on 07/09/16 15:35; Start 07/09/16 at 15:15; Stop 07/09/16 at 15:24; Status DC Sodium Chloride 1,000 ml @ 1,000 mls/hr 1X ONCE IV Last administered on 14:00; Start 07/09/16 at 15:15; Stop 07/09/16 at 16:14; Status DC Ceftriaxone Sodium 50 ml @ 100 mls/hr 1X ONCE IV Last administered on 15:59; Start 07/09/16 at 15:15; Stop 07/09/16 at 15:44; Status DC Azithromycin 500 mg/Sodium Chloride 250 ml @ 250 mls/hr 1X ONCE IV ; Start at 15:15; Stop 07/09/16 at 16:14; Status UNV Azithromycin 250 ml @ 250 mls/hr 1X ONCE IV Last administered on 07/09/16 16 :44; Start 07/09/16 at 15:30; Stop 07/09/16 at 16:29; Status DC Aspirin (Juan Francisco Aspirin) 325 mg 1X ONCE PO Last administered on 07/09/16 16:44 ; Start 07/09/16 at 16:45; Stop 07/09/16 at 16:46; Status DC Ceftriaxone Sodium 1 gm/ Sodium Chloride 50 ml @ 100 mls/hr Q24H IV Last administered on 07/11/16 11:10; Start 07/10/16 at 09:00 Hydralazine HCl (Apresoline) 10 mg PRN Q4HRS PRN IVP ELEVATED BP, SEE COMMENTS Last administered on 07/11/16 03:26; Start 07/10/16 at 09:00 Amlodipine Besylate (Norvasc) 10 mg DAILY PO ; Start 07/10/16 at 09:00 Atenolol (Tenormin) 25 mg BID PO ; Start 07/10/16 at 09:00; Stop 07/10/16 at 15: 43; Status DC Atorvastatin Calcium (Lipitor) 40 mg QHS PO ; Start 07/10/16 at 21:00; Stop at 21:00; Status DC Losartan Potassium (Cozaar) 50 mg DAILY PO ; Start 07/10/16 at 09:00; Stop 07/10 at 15:43; Status DC Metoclopramide HCl (Reglan) 10 mg PRN Q8HRS PRN IV NAUSEA/VOMITING Last administered on 07/11/16 03:26; Start 07/10/16 at 10:00 Vancomycin HCl 250 mg [id number] PO Last administered on 07/11/16 08:37; Start at 17:00 Acetaminophen (Tylenol) 650 mg PRN Q6HRS PRN PO PAIN; Start 07/10/16 at 15:00 Amlodipine Besylate (Norvasc) 10 mg DAILY PO ; Start 07/11/16 at 09:00; Status UNV Ascorbic Acid (Vitamin C) 500 mg DAILY PO ; Start 07/10/16 at 16:00 Aspirin (Children'S Aspirin) 81 mg DAILY PO ; Start 07/10/16 at 16:00 Atenolol (Tenormin) 50 mg BID PO ; Start 07/10/16 at 21:00 Carisoprodol (Soma) 350 mg PRN Q8HRS PRN PO PAIN; Start 07/10/16 at 15:00 Carisoprodol (Soma) 350 mg DAILY PO ; Start 07/11/16 at 09:00 Escitalopram Oxalate (Lexapro) 10 mg HS PO ; Start 07/10/16 at 21:00 Furosemide (Lasix) 40 mg DAILY PO ; Start 07/10/16 at 16:00 Losartan Potassium (Cozaar) 100 mg DAILY PO ; Start 07/10/16 at 16:00 Morphine Sulfate (Ms Contin) 45 mg BID PO ; Start 07/10/16 at 21:00 Nitroglycerin (Nitrostat) 0.4 mg PRN Q5MIN PRN SL CHEST PAIN; Start 07/10/16 at 15:00 Pregabalin (Lyrica) 75 mg TID PO ; Start 07/10/16 at 15:00 Insulin Detemir (Levemir) 60 units QHS SQ Last administered on 07/10/16 21:51 ; Start 07/10/16 at 21:00 Insulin Aspart (NovoLOG) 6 units TIDAC SQ ; Start 07/10/16 at 16:30 Insulin Aspart (NovoLOG) TIDAC SQ Last administered on 07/11/16 08:52; Start 07/10/16 at 16:30 Oxycodone HCl (Roxicodone) 15 mg PRN Q6HRS PRN PO PAIN; Start 07/10/16 at 15:30 Atorvastatin Calcium (Lipitor) 80 mg QHS PO ; Start 07/10/16 at 21:00 Non-Formulary Medication 2.5 gm QODAY TP ; Start 07/12/16 at 09:00; Status UNV Ondansetron HCl (Zofran) 8 mg PRN Q8HRS PRN IV NAUSEA/VOMITING Last administered on 07/11/16 05:38; Start 07/10/16 at 15:30 Prochlorperazine Edisylate (Compazine) 10 mg PRN Q8HRS PRN IV NAUSEA/VOMITING Last administered on 07/11/16 01:43; Start 07/10/16 at 15:30 Sodium Chloride 1,000 ml @ 75 mls/hr [id number] IV Last administered on 08:37; Start 07/10/16 at 18:30 Labetalol HCl (Normodyne) 20 mg PRN Q6HRS PRN IVP HYPERTENSION, SEE COMMENTS Last administered on 07/11/16 05:39; Start 07/10/16 at 20:15 Potassium Chloride (Klor-Con) 40 meq 1X ONCE PO ; Start 07/11/16 at 07:00; Stop 07/11/16 at 07:00; Status DC Potassium Chloride 100 ml @ 100 mls/hr Q1H IV Last administered on 07/11/16 08:00; Start 07/11/16 at 07:00; Stop 07/11/16 at 10:59; Status DC Magnesium Sulfate/ Dextrose 50 ml @ 25 mls/hr 1X ONCE IV ; Start 07/11/16 at 13 :00; Stop 07/11/16 at 14:59 Potassium Chloride (Klor-Con) 40 meq 1X ONCE PO ; Start 07/11/16 at 13:45; Stop 07/11/16 at 13:46; Status DC Active Scripts Active Reported Zinc Oxide 30 Gm Oint...g. 30 Gm TP BID patti inner buttocks Vitamin D3 (Cholecalciferol (Vitamin D3)) 5,000 Unit Tablet 1 Tab PO DAILY Stress B With Zinc Tablet (Multivits,Stress Formula/Zinc) 1 Each Tablet 1 Each PO DAILY Soma (Carisoprodol) 350 Mg Tablet 1 Tab PO DAILY Potassium Chloride 10 Meq Capsule.er 10 Meq PO DAILY Oxycodone Hcl 15 Mg Tablet 1 Tab PO Q6HRS PRN Norvasc (Amlodipine Besylate) 10 Mg Tablet 10 Mg PO DAILY Nitrostat (Nitroglycerin) 0.4 Mg Tab.subl 0.4 Mg SL PRN Q5MIN PRN Ms Contin (Morphine Sulfate) 30 Mg Tablet.er 15 Tab PO BID Magnesium (Magnesium Oxide) 400 Mg Capsule 400 Mg PO DAILY Lyrica (Pregabalin) 75 Mg Capsule 75 Mg PO TID Lexapro (Escitalopram Oxalate) 5 Mg Tablet 1 Tab PO HS Escitalopram Oxalate 10 Mg Tablet 1 Tab PO HS Lasix (Furosemide) 40 Mg Tablet 1 Tab PO DAILY Lantus (Insulin Glargine,Hum.rec.anlog) 100 Unit/1 Ml Vial 60 Unit SQ DAILY Imodium A-D (Loperamide HCl) 2 Mg Capsule 2 Mg PO PRN PRN after each loose stool up to 16mg in 24 hours Humalog (Insulin Lispro) 100 Unit/1 Ml Insuln.pen 0-8 Unit SQ TIDAC if fs bs 150-200= 1 unit 201-250= 2 units 250-300= 4 units 301-350= 6 units 351-400= 8 units >[address] [place] (Insulin Lispro) 100 Unit/1 Ml Cartridge 6 Unit SQ TIDAC Baclofen 10 Mg Tablet 1 Tab PO BID Ascorbic Acid 500 Mg Tablet 500 Mg PO DAILY Androgel (Testosterone) 5 Gm Gel.packet 2.5 Gm TP QODAY Tylenol (Acetaminophen) 325 Mg Tablet 650 Mg PO Q6HRS PRN Carisoprodol 350 Mg Tablet 350 Mg PO Q8HRS PRN Temazepam 30 Mg Capsule 1 Cap PO QHS Crestor (Rosuvastatin Calcium) 40 Mg Tablet 20 Mg PO QHS Losartan Potassium 50 Mg Tablet 100 Mg PO DAILY Atenolol 50 Mg Tablet 1 Tab PO BID Metformin Hcl 500 Mg Tablet 1 Tab PO BID Aspirin 81 Mg Tab.chew 81 Mg PO DAILY Sennosides-Docusate Sodium Tab (Sennosides/Docusate Sodium) 1 Each Tablet 2 Each PO BID Miralax (Polyethylene Glycol 3350) 17 Gm Powd.pack 17 Gm PO PRN PRN Vitals/I & O Vital Sign - Last 24 Hours 07/10/16 07/10/16 07/10/16 07/10/16 15:45 19:06 19:07 19:42 Temp 98.4 98.3 98.4 98.3 Pulse 108 102 102 Resp 20 20 B/P (MAP) 169/83 (111) 217/92 (133) 217/92 Pulse Ox 93 96 O2 Delivery Room Air Room Air Nasal Cannula O2 Flow Rate 2.0 07/10/16 07/10/16 07/11/16 07/11/16 19:43 23:00 03:00 03:26 Temp 98.3 99.0 98.3 99.0 Pulse 111 96 94 94 Resp 22 20 B/P (MAP) 175/85 (115) 158/85 (109) 186/90 (122) 186/90 Pulse Ox 93 92 O2 Delivery Nasal Cannula Nasal Cannula O2 Flow Rate 2.0 2.0 07/11/16 05:39 Pulse 97 B/P (MAP) 183/79 Intake and Output 07/10/16 07/10/16 07/11/16 15:00 23:00 07:00 Intake Total 665 ml Output Total 300 ml 50 ml Balance -300 ml 615 ml KELLY STOREY MD July 11, 2016 14:15
[2016-07-11] MEDS: amLODIPine BESYLATE 10 MG TABLET PO SCH (14:22)
[2016-07-11] MEDS: MORPHINE ER 15 MG TABLET.ER PO SCH ×2 (14:25→20:51)
[2016-07-11] MEDS: ATENOLOL 50 MG TABLET. PO SCH ×2 (14:28→21:00)
[2016-07-11 15:00] VITALS: BP 173/86
--- NOTE | 2016-07-11 17:05 | CARD ---
APPROVED REPORT EXAM: Two-dimensional and M-mode echocardiogram with Doppler and color Doppler. Other Information Quality : GoodHR: 100bpm Rhythm : Tachycardia INDICATION Elevated troponin RISK FACTORS Obesity Diabetes Smoking 2D DIMENSIONS RVDd2.9 (2.9-3.5cm)Left Atrium(2D)3.9 (1.6-4.0cm) IVSd1.2 (0.7-1.1cm)Aortic Root(2D)3.0 (2.0-3.7cm) LVDd4.7 (3.9-5.9cm)LVOT Diameter2.5 (1.8-2.4cm) PWd1.2 (0.7-1.1cm)LVDs3.2 (2.5-4.0cm) FS (%) 31.8 %SV61.3 ml LVEF(%)59.9 (>50%) Aortic Valve AoV Peak Narendra.179.3cm/sAoV VTI23.1cm AO Peak GR.12.9mmHgLVOT Peak Narendra.123.3cm/s AO Mean GR.5mmHgAVA (VMAX)3.25cm2 Mitral Valve MV E Zbxnohrw30.7cm/sMV E Peak Gr.11mmHg MV DECEL [id number] A Rdkmpsfh582.5cm/s MV E Mean Gr.4mmHgE/A Ratio0.5 MV A [id number] Pulmonary Valve PV Peak Uacvzhfg788.3cm/s LEFT VENTRICLE The left ventricle is normal size. There is mild concentric left ventricular hypertrophy. The left ve ntricular systolic function is normal and the ejection fraction is within normal range. The Ejection Fraction is 60-65%. There is normal LV segmental wall motion. Transmitral Doppler flow pattern is Gra de I-abnormal relaxation pattern. RIGHT VENTRICLE The right ventricle is normal size. There is normal right ventricular wall thickness. The right ventr icular systolic function is normal. ATRIA The left atrium is not well visualized. The right atrium size is normal. The interatrial septum is in tact with no evidence for an atrial septal defect or patent foramen ovale as noted on 2-D or Doppler imaging. AORTIC VALVE The aortic valve is moderately sclerotic. The aortic valve is trileaflet. Doppler and Color Flow reve aled no significant aortic regurgitation. There is no significant aortic valvular stenosis. MITRAL VALVE The mitral valve leaflets are thickened. There is no evidence of mitral valve prolapse. There is no m itral valve stenosis. Doppler and Color Flow revealed no mitral valve regurgitation noted. TRICUSPID VALVE Doppler and Color Flow revealed no tricuspid valve regurgitation noted. There is no pulmonary hyperte nsion. PULMONIC VALVE Doppler and Color Flow revealed no pulmonic valvular regurgitation. There is no pulmonic valvular amra nosis. GREAT VESSELS The aortic root is normal in size. The ascending aorta is normal in size. The IVC was obscured, unabl e to assess. PERICARDIAL EFFUSION There is no evidence of significant pericardial effusion. Critical Notification Critical Value: No <Conclusion> The left ventricular systolic function is normal and the ejection fraction is within normal range. Th e Ejection Fraction is 60-65%. There is normal LV segmental wall motion.
[2016-07-11 19:51] VITALS: BP 124/84
[2016-07-11] MEDS: ATORVASTATIN CALCIUM 40 MG TABLET. PO SCH (20:49)
[2016-07-11] MEDS: ESCITALOPRAM 10 MG TABLET. PO SCH (20:49)
[2016-07-11] MEDS: INSULIN DETEMIR 300 UNITS/3 ML INSULN.PEN. SQ SCH (21:03)
[2016-07-11 23:20] VITALS: BP 98/54
[2016-07-12 06:32] LABS: HEMATOCRIT 45.8 % (39.0-53.0); RED BLOOD COUNT 5.35 x10^6/uL (4.30-5.70); RED CELL DISTRIBUTION WIDTH 15.6 % (11.5-14.5); WHITE BLOOD COUNT 13.5 x10^3/uL (4.0-11.0)
[2016-07-12 06:40] LABS: CALCIUM 7.8 mg/dL (8.5-10.1); CREATININE 0.7 mg/dL (0.7-1.3); GFR 113.5; MAGNESIUM 1.9 mg/dL (1.8-2.4); POTASSIUM 3.7 mmol/L (3.5-5.1)
[2016-07-12 07:00] VITALS: BP 115/50
[2016-07-12] MEDS: INSULIN ASPART 300 UNITS/3 ML INSULN.PEN SQ SCH ×6 (07:30→17:32)
[2016-07-12] MEDS: ASCORBIC ACID 500 MG TABLET PO SCH (08:45)
[2016-07-12] MEDS: ASPIRIN CHEWABLE 81 MG TABLET. PO SCH (08:45)
[2016-07-12] MEDS: MORPHINE ER 15 MG TABLET.ER PO SCH ×2 (08:45→22:38)
[2016-07-12] MEDS: PREGABALIN 75 MG CAPSULE PO SCH ×3 (08:49→22:37)
[2016-07-12] MEDS: FUROSEMIDE 40 MG TABLET. PO SCH (08:51)
[2016-07-12] MEDS: LOSARTAN POTASSIUM 50 MG TABLET. PO SCH (08:51)
[2016-07-12] MEDS: CARISOPRODOL 350 MG TABLET PO SCH (08:52)
[2016-07-12] MEDS: amLODIPine BESYLATE 10 MG TABLET PO SCH (08:52)
[2016-07-12] MEDS: ATENOLOL 50 MG TABLET. PO SCH ×2 (08:52→22:41)
[2016-07-12] MEDS: VANCOMYCIN 250 MG/5 ML ORAL SOLUTION. PO SCH ×4 (08:54→22:39)
[2016-07-12] MEDS ORDERED: TESTOSTERONE 2.5 GM TP SCH (09:00)
--- NOTE | 2016-07-12 10:18 | PDOC ---
CARDIO Progress Notes Date and Time Date of Service 07/12/2016 Time of Evaluation 1018 Subjective Subjective: No Chest Pain, No Palpitations, No Dizziness, Other (drowsy & lethargic) Vitals Vitals Vital Signs Date Time Temp Pulse Resp B/P (MAP) Pulse Ox O2 Delivery O2 Flow Rate FiO2 07/12/16 08:45 18 Nasal Cannula 07/12/16 07:00 98.0 55 115/50 (71) 97 2.0 98.0 Weight Weight [ ] Input and Output Intake and Output Intake and Output 07/12/16 07:00 Intake Total 340 ml Balance 340 ml Intake Oral 340 ml # Voids 7 # Bowel Movements 17 Laboratory Labs Laboratory Tests Test 07/11/16 10:50 07/11/16 15:30 07/11/16 16:50 07/12/16 05:15 Glucose (Fingerstick) 225 mg/dL (70-99) 194 mg/dL (70-99) Potassium Level 3.0 mmol/L (3.5-5.1) 3.7 mmol/L (3.5-5.1) White Blood Count 13.5 x10^3/uL (4.0-11.0) Red Blood Count 5.35 x10^6/uL (4.30-5.70) Hemoglobin 15.0 g/dL (13.0-17.5) Hematocrit 45.8 % (39.0-53.0) Mean Corpuscular Volume 86 fL (79-100) Mean Corpuscular Hemoglobin 28 pg (25-35) Mean Corpuscular Hemoglobin Concent 33 g/dL (31-37) Red Cell Distribution Width 15.6 % (11.5-14.5) Platelet Count 243 x10^3/uL (140-400) Sodium Level 140 mmol/L (136-145) Chloride Level 106 mmol/L (98-107) Carbon Dioxide Level 28 mmol/L (21-32) Anion Gap 6 (6-14) Blood Urea Nitrogen 10 mg/dL (8-26) Creatinine 0.7 mg/dL (0.7-1.3) Estimated GFR (Cockcroft-Gault) 113.5 Glucose Level 113 mg/dL (70-99) Calcium Level 7.8 mg/dL (8.5-10.1) Magnesium Level 1.9 mg/dL (1.8-2.4) Test 07/12/16 08:16 Glucose (Fingerstick) 121 mg/dL (70-99) Microbiology Micro Microbiology 07/09/16 Blood Culture - Preliminary, Resulted NO GROWTH AFTER 2 DAYS 07/09/16 Urine Culture - Final, Complete 07/09/16 Urine Culture Result 1 (PUMA) - Final, Complete 07/09/16 Antimicrobic Susceptibility - Final, Complete Physical Exam HEENT: Neck Supple W Full Motion Chest: Symmetric, Other (reproducible CP in lower 1/3 of sternum) LUNGS: Other (decreased in bases anteriorly) Heart: S1S2, RRR, no murmurs Abdomen: Soft N/T Extremities: Other (right AKA amputation; 2+ LLE edema) Neurology: other (lethargic) Assessment Assessment 1. Elevated troponin in the setting of sepsis troponin peaked at 0.1 - echo with preserved LV function @ 60-65% and no segmental wall motion abnormalities associated with encephalopathy continue to await MPI from 2. HTN improved control today ? atenolol held 3. PAD previous right AKA 4. CAD s/p prior remote PCI requesting records from [facility] agree[facility] with transfer back to [place] SUDHA MARTINEZ APRN July 12, 2016 10:18
[2016-07-12 11:00] VITALS: BP 105/57
[2016-07-12] MEDS: IV NORMAL SALINE 1000ML BAG 1,000 ML IV SCH (12:53)
[2016-07-12] MEDS ORDERED: AMOX875T PO (13:23)
--- NOTE | 2016-07-12 13:32 | PDOC ---
PROGRESS NOTES Chief Complaint Chief Complaint 1. Toxic encephalopathy from infection 2. UTI: GNR ceftriaxone 3. C.diff colitis vanco PO 4. DM2 5. HTN: 6. PAD: hx AKA. w/ weakness and debility 7. Chronic back pain: cont home pain regimen 8. Prophylaxis: lovenox History of Present Illness History of Present Illness feels poorly today. generalized malaise, myalgias. denies abd pain. + diarrhea Vitals Vitals Vital Signs Date Time Temp Pulse Resp B/P (MAP) Pulse Ox O2 Delivery O2 Flow Rate FiO2 07/12/16 12:45 16 91 Nasal Cannula 2.0 07/12/16 11:00 98.1 55 105/57 (73) 98.1 Physical Exam General: Alert, Cooperative, No acute distress Heart: Regular rate, No murmurs Lungs: Clear Abdomen: Normal bowel sounds, Soft, No tenderness, Other (decreased bowel sounds) Extremities: No clubbing, Other (trace edema L LE. AKA R) Skin: No rashes Labs LABS Laboratory Tests Test 07/11/16 15:30 07/11/16 16:50 07/12/16 05:15 07/12/16 08:16 Potassium Level 3.0 mmol/L (3.5-5.1) 3.7 mmol/L (3.5-5.1) Glucose (Fingerstick) 194 mg/dL (70-99) 121 mg/dL (70-99) White Blood Count 13.5 x10^3/uL (4.0-11.0) Red Blood Count 5.35 x10^6/uL (4.30-5.70) Hemoglobin 15.0 g/dL (13.0-17.5) Hematocrit 45.8 % (39.0-53.0) Mean Corpuscular Volume 86 fL (79-100) Mean Corpuscular Hemoglobin 28 pg (25-35) Mean Corpuscular Hemoglobin Concent 33 g/dL (31-37) Red Cell Distribution Width 15.6 % (11.5-14.5) Platelet Count 243 x10^3/uL (140-400) Sodium Level 140 mmol/L (136-145) Chloride Level 106 mmol/L (98-107) Carbon Dioxide Level 28 mmol/L (21-32) Anion Gap 6 (6-14) Blood Urea Nitrogen 10 mg/dL (8-26) Creatinine 0.7 mg/dL (0.7-1.3) Estimated GFR (Cockcroft-Gault) 113.5 Glucose Level 113 mg/dL (70-99) Calcium Level 7.8 mg/dL (8.5-10.1) Magnesium Level 1.9 mg/dL (1.8-2.4) Test 07/12/16 12:05 Glucose (Fingerstick) 143 mg/dL (70-99) Review of Systems Review of Systems some nausea, + diarrhea has been on clear liquids, not eating much Assessment and Plan Assessmemt and Plan Problems Medical Problems: (1) Altered mental status Status: Acute (2) Hypotension Status: Acute Problems: Comment Review of Relevant I have reviewed the following items marcelle (where applicable) has been applied. Labs Laboratory Tests Test 07/10/16 14:00 07/10/16 17:20 07/10/16 20:55 07/11/16 05:40 Troponin I Quantitative 0.061 ng/mL (0.000-0.055) Glucose (Fingerstick) 206 mg/dL (70-99) 225 mg/dL (70-99) White Blood Count 14.0 x10^3/uL (4.0-11.0) Red Blood Count 6.24 x10^6/uL (4.30-5.70) Hemoglobin 17.7 g/dL (13.0-17.5) Hematocrit 52.6 % (39.0-53.0) Mean Corpuscular Volume 84 fL (79-100) Mean Corpuscular Hemoglobin 28 pg (25-35) Mean Corpuscular Hemoglobin Concent 34 g/dL (31-37) Red Cell Distribution Width 15.1 % (11.5-14.5) Platelet Count 264 x10^3/uL (140-400) Sodium Level 145 mmol/L (136-145) Potassium Level 2.8 mmol/L (3.5-5.1) Chloride Level 105 mmol/L (98-107) Carbon Dioxide Level 28 mmol/L (21-32) Anion Gap 12 (6-14) Blood Urea Nitrogen 10 mg/dL (8-26) Creatinine 0.8 mg/dL (0.7-1.3) Estimated GFR (Cockcroft-Gault) 97.3 Glucose Level 219 mg/dL (70-99) Calcium Level 8.9 mg/dL (8.5-10.1) Magnesium Level 1.5 mg/dL (1.8-2.4) Test 07/11/16 07:21 07/11/16 10:50 07/11/16 15:30 07/11/16 16:50 Glucose (Fingerstick) 214 mg/dL (70-99) 225 mg/dL (70-99) 194 mg/dL (70-99) Potassium Level 3.0 mmol/L (3.5-5.1) Test 07/12/16 05:15 07/12/16 08:16 07/12/16 12:05 White Blood Count 13.5 x10^3/uL (4.0-11.0) Red Blood Count 5.35 x10^6/uL (4.30-5.70) Hemoglobin 15.0 g/dL (13.0-17.5) Hematocrit 45.8 % (39.0-53.0) Mean Corpuscular Volume 86 fL (79-100) Mean Corpuscular Hemoglobin 28 pg (25-35) Mean Corpuscular Hemoglobin Concent 33 g/dL (31-37) Red Cell Distribution Width 15.6 % (11.5-14.5) Platelet Count 243 x10^3/uL (140-400) Sodium Level 140 mmol/L (136-145) Potassium Level 3.7 mmol/L (3.5-5.1) Chloride Level 106 mmol/L (98-107) Carbon Dioxide Level 28 mmol/L (21-32) Anion Gap 6 (6-14) Blood Urea Nitrogen 10 mg/dL (8-26) Creatinine 0.7 mg/dL (0.7-1.3) Estimated GFR (Cockcroft-Gault) 113.5 Glucose Level 113 mg/dL (70-99) Calcium Level 7.8 mg/dL (8.5-10.1) Magnesium Level 1.9 mg/dL (1.8-2.4) Glucose (Fingerstick) 121 mg/dL (70-99) 143 mg/dL (70-99) Laboratory Tests Test 07/11/16 15:30 07/11/16 16:50 5/16/17 05:15 07/12/16 08:16 Potassium Level 3.0 mmol/L (3.5-5.1) 3.7 mmol/L (3.5-5.1) Glucose (Fingerstick) 194 mg/dL (70-99) 121 mg/dL (70-99) White Blood Count 13.5 x10^3/uL (4.0-11.0) Red Blood Count 5.35 x10^6/uL (4.30-5.70) Hemoglobin 15.0 g/dL (13.0-17.5) Hematocrit 45.8 % (39.0-53.0) Mean Corpuscular Volume 86 fL (79-100) Mean Corpuscular Hemoglobin 28 pg (25-35) Mean Corpuscular Hemoglobin Concent 33 g/dL (31-37) Red Cell Distribution Width 15.6 % (11.5-14.5) Platelet Count 243 x10^3/uL (140-400) Sodium Level 140 mmol/L (136-145) Chloride Level 106 mmol/L (98-107) Carbon Dioxide Level 28 mmol/L (21-32) Anion Gap 6 (6-14) Blood Urea Nitrogen 10 mg/dL (8-26) Creatinine 0.7 mg/dL (0.7-1.3) Estimated GFR (Cockcroft-Gault) 113.5 Glucose Level 113 mg/dL (70-99) Calcium Level 7.8 mg/dL (8.5-10.1) Magnesium Level 1.9 mg/dL (1.8-2.4) Test 07/12/16 12:05 Glucose (Fingerstick) 143 mg/dL (70-99) Microbiology 07/09/16 Blood Culture - Preliminary, Resulted NO GROWTH AFTER 2 DAYS 07/09/16 Urine Culture - Final, Complete 07/09/16 Urine Culture Result 1 (PUMA) - Final, Complete 07/09/16 Antimicrobic Susceptibility - Final, Complete Medications Current Medications Ondansetron HCl (Zofran) 4 mg PRN Q8HRS PRN IV NAUSEA/VOMITING Last administered on 07/10/16t 08:39; Start 07/09/16 at 15:15; Stop 07/10/16 at 15:21 ; Status DC Morphine Sulfate 2 mg PRN Q2HR PRN IV PAIN; Start 07/09/16 at 15:15; Stop 07/10 at 15:21; Status DC Sodium Chloride 1,000 ml @ 125 mls/hr Q8H IV Last administered on 07/10/16 07 :31; Start 07/09/16 at 15:09; Stop 07/10/16 at 15:21; Status DC Acetaminophen (Tylenol) 650 mg PRN Q4HRS PRN PO FEVER; Start 07/09/16 at 15:15 ; Stop 07/10/16 at 15:21; Status DC Naloxone HCl (Narcan) 0.4 mg 1X ONCE IV Last administered on 07/09/16 15:35; Start 07/09/16 at 15:15; Stop 07/09/16 at 15:24; Status DC Sodium Chloride 1,000 ml @ 1,000 mls/hr 1X ONCE IV Last administered on 14:00; Start 07/09/16 at 15:15; Stop 07/09/16 at 16:14; Status DC Ceftriaxone Sodium 50 ml @ 100 mls/hr 1X ONCE IV Last administered on 15:59; Start 07/09/16 at 15:15; Stop 07/09/16 at 15:44; Status DC Azithromycin 500 mg/Sodium Chloride 250 ml @ 250 mls/hr 1X ONCE IV ; Start at 15:15; Stop 07/09/16 at 16:14; Status UNV Azithromycin 250 ml @ 250 mls/hr 1X ONCE IV Last administered on 07/09/16 16 :44; Start 07/09/16 at 15:30; Stop 07/09/16 at 16:29; Status DC Aspirin (Juan Francisco Aspirin) 325 mg 1X ONCE PO Last administered on 07/09/16 16:44 ; Start 07/09/16 at 16:45; Stop 07/09/16 at 16:46; Status DC Ceftriaxone Sodium 1 gm/ Sodium Chloride 50 ml @ 100 mls/hr Q24H IV Last administered on 07/12/16 08:54; Start 07/10/16 at 09:00 Hydralazine HCl (Apresoline) 10 mg PRN Q4HRS PRN IVP ELEVATED BP, SEE COMMENTS Last administered on 07/11/16 03:26; Start 07/10/16 at 09:00 Amlodipine Besylate (Norvasc) 10 mg DAILY PO Last administered on 07/11/16 14: 22; Start 07/10/16 at 09:00 Atenolol (Tenormin) 25 mg BID PO ; Start 07/10/16 at 09:00; Stop 07/10/16 at 15: 43; Status DC Atorvastatin Calcium (Lipitor) 40 mg QHS PO ; Start 07/10/16 at 21:00; Stop at 21:00; Status DC Losartan Potassium (Cozaar) 50 mg DAILY PO ; Start 07/10/16 at 09:00; Stop 07/10 at 15:43; Status DC Metoclopramide HCl (Reglan) 10 mg PRN Q8HRS PRN IV NAUSEA/VOMITING Last administered on 07/11/16 14:23; Start 07/10/16 at 10:00 Vancomycin HCl 250 mg [id number] PO Last administered on 07/12/16 12:53; Start at 17:00 Acetaminophen (Tylenol) 650 mg PRN Q6HRS PRN PO PAIN; Start 07/10/16 at 15:00 Amlodipine Besylate (Norvasc) 10 mg DAILY PO ; Start 07/11/16 at 09:00; Status UNV Ascorbic Acid (Vitamin C) 500 mg DAILY PO Last administered on 07/12/16 08:45 ; Start 07/10/16 at 16:00 Aspirin (Children'S Aspirin) 81 mg DAILY PO Last administered on 07/12/16 08: 45; Start 07/10/16 at 16:00 Atenolol (Tenormin) 50 mg BID PO Last administered on 07/11/16 21:00; Start at 21:00 Carisoprodol (Soma) 350 mg PRN Q8HRS PRN PO PAIN; Start 07/10/16 at 15:00 Carisoprodol (Soma) 350 mg DAILY PO Last administered on 07/12/16 08:52; Start 07/11/16 at 09:00 Escitalopram Oxalate (Lexapro) 10 mg HS PO Last administered on 07/11/16 20:49 ; Start 07/10/16 at 21:00 Furosemide (Lasix) 40 mg DAILY PO Last administered on 07/12/16 08:51; Start 07/10/16 at 16:00 Losartan Potassium (Cozaar) 100 mg DAILY PO Last administered on 07/11/16 13: 56; Start 07/10/16 at 16:00 Morphine Sulfate (Ms Contin) 45 mg BID PO Last administered on 07/12/16 08:45 ; Start 07/10/16 at 21:00 Nitroglycerin (Nitrostat) 0.4 mg PRN Q5MIN PRN SL CHEST PAIN; Start 07/10/16 at 15:00 Pregabalin (Lyrica) 75 mg TID PO Last administered on 07/12/16 08:49; Start at 15:00 Insulin Detemir (Levemir) 60 units QHS SQ Last administered on 07/11/16 21:03 ; Start 07/10/16 at 21:00 Insulin Aspart (NovoLOG) 6 units TIDAC SQ Last administered on 07/12/16 12:11 ; Start 07/10/16 at 16:30 Insulin Aspart (NovoLOG) TIDAC SQ Last administered on 07/12/16 12:13; Start 07/10/16 at 16:30 Oxycodone HCl (Roxicodone) 15 mg PRN Q6HRS PRN PO PAIN; Start 07/10/16 at 15:30 Atorvastatin Calcium (Lipitor) 80 mg QHS PO Last administered on 07/11/16 20: 49; Start 07/10/16 at 21:00 Non-Formulary Medication 2.5 gm QODAY TP ; Start 07/12/16 at 09:00; Status UNV Ondansetron HCl (Zofran) 8 mg PRN Q8HRS PRN IV NAUSEA/VOMITING Last administered on 07/11/16 05:38; Start 07/10/16 at 15:30 Prochlorperazine Edisylate (Compazine) 10 mg PRN Q8HRS PRN IV NAUSEA/VOMITING Last administered on 07/11/16 01:43; Start 07/10/16 at 15:30 Sodium Chloride 1,000 ml @ 75 mls/hr [id number] IV Last administered on 12:53; Start 07/10/16 at 18:30 Labetalol HCl (Normodyne) 20 mg PRN Q6HRS PRN IVP HYPERTENSION, SEE COMMENTS Last administered on 07/11/16 05:39; Start 07/10/16 at 20:15 Potassium Chloride (Klor-Con) 40 meq 1X ONCE PO ; Start 07/11/16 at 07:00; Stop 07/11/16 at 07:00; Status DC Potassium Chloride 100 ml @ 100 mls/hr Q1H IV Last administered on 07/11/16 12:10; Start 07/11/16 at 07:00; Stop 07/11/16 at 10:59; Status DC Magnesium Sulfate/ Dextrose 50 ml @ 25 mls/hr 1X ONCE IV Last administered on 07/11/16 18:30; Start 07/11/16 at 13:00; Stop 07/11/16 at 14:59; Status DC Potassium Chloride (Klor-Con) 40 meq 1X ONCE PO ; Start 07/11/16 at 13:45; Stop 07/11/16 at 13:46; Status DC Potassium Chloride (Klor-Con) 40 meq 1X ONCE PO Last administered on 19:00; Start 07/11/16 at 18:30; Stop 07/11/16 at 18:31; Status DC Active Scripts Active Amoxicillin 875 Mg Tablet 1 Tab PO BID Reported Zinc Oxide 30 Gm Oint...g. 30 Gm TP BID patti inner buttocks Vitamin D3 (Cholecalciferol (Vitamin D3)) 5,000 Unit Tablet 1 Tab PO DAILY Stress B With Zinc Tablet (Multivits,Stress Formula/Zinc) 1 Each Tablet 1 Each PO DAILY Soma (Carisoprodol) 350 Mg Tablet 1 Tab PO DAILY Potassium Chloride 10 Meq Capsule.er 10 Meq PO DAILY Oxycodone Hcl 15 Mg Tablet 1 Tab PO Q6HRS PRN Norvasc (Amlodipine Besylate) 10 Mg Tablet 10 Mg PO DAILY Nitrostat (Nitroglycerin) 0.4 Mg Tab.subl 0.4 Mg SL PRN Q5MIN PRN Ms Contin (Morphine Sulfate) 30 Mg Tablet.er 15 Tab PO BID Magnesium (Magnesium Oxide) 400 Mg Capsule 400 Mg PO DAILY Lyrica (Pregabalin) 75 Mg Capsule 75 Mg PO TID Lexapro (Escitalopram Oxalate) 5 Mg Tablet 1 Tab PO HS Escitalopram Oxalate 10 Mg Tablet 1 Tab PO HS Lasix (Furosemide) 40 Mg Tablet 1 Tab PO DAILY Lantus (Insulin Glargine,Hum.rec.anlog) 100 Unit/1 Ml Vial 60 Unit SQ DAILY Imodium A-D (Loperamide HCl) 2 Mg Capsule 2 Mg PO PRN PRN after each loose stool up to 16mg in 24 hours Humalog (Insulin Lispro) 100 Unit/1 Ml Insuln.pen 0-8 Unit SQ TIDAC if fs bs 150-200= 1 unit 201-250= 2 units 250-300= 4 units 301-350= 6 units 351-400= 8 units >401 call Humalog (Insulin Lispro) 100 Unit/1 Ml Cartridge 6 Unit SQ TIDAC Baclofen 10 Mg Tablet 1 Tab PO BID Ascorbic Acid 500 Mg Tablet 500 Mg PO DAILY Androgel (Testosterone) 5 Gm Gel.packet 2.5 Gm TP QODAY Tylenol (Acetaminophen) 325 Mg Tablet 650 Mg PO Q6HRS PRN Carisoprodol 350 Mg Tablet 350 Mg PO Q8HRS PRN Temazepam 30 Mg Capsule 1 Cap PO QHS Crestor (Rosuvastatin Calcium) 40 Mg Tablet 20 Mg PO QHS Losartan Potassium 50 Mg Tablet 100 Mg PO DAILY Atenolol 50 Mg Tablet 1 Tab PO BID Metformin Hcl 500 Mg Tablet 1 Tab PO BID Aspirin 81 Mg Tab.chew 81 Mg PO DAILY Sennosides-Docusate Sodium Tab (Sennosides/Docusate Sodium) 1 Each Tablet 2 Each PO BID Miralax (Polyethylene Glycol 3350) 17 Gm Powd.pack 17 Gm PO PRN PRN Vitals/I & O Vital Sign - Last 24 Hours 07/11/16 07/11/16 07/11/16 07/11/16 13:56 14:22 14:25 14:28 Pulse 98 90 90 Resp 20 B/P (MAP) 160/88 160/88 160/88 Pulse Ox 92 O2 Delivery Nasal Cannula O2 Flow Rate 2.0 07/11/16 07/11/16 07/11/16 07/11/16 15:00 19:51 20:00 20:51 Temp 98.6 99.1 98.6 99.1 Pulse 94 84 Resp 18 20 20 B/P (MAP) 173/86 (115) 124/84 (97) Pulse Ox 93 93 93 O2 Delivery Nasal Cannula Room Air Nasal Cannula Nasal Cannula O2 Flow Rate 2.0 2.0 2.0 2.0 07/11/16 07/11/16 07/12/16 07/12/16 21:00 23:20 03:00 07:00 Temp 98.0 98.0 98.0 98.0 Pulse 76 70 54 55 Resp 20 18 B/P (MAP) 121/69 98/54 (69) 115/50 (71) Pulse Ox 92 97 O2 Delivery Nasal Cannula Nasal Cannula O2 Flow Rate 2.0 2.0 07/12/16 07/12/16 07/12/16 07/12/16 08:00 08:45 11:00 12:45 Temp 98.1 98.1 Pulse 55 Resp 18 16 16 B/P (MAP) 105/57 (73) Pulse Ox 91 91 O2 Delivery Nasal Cannula Nasal Cannula Nasal Cannula Nasal Cannula O2 Flow Rate 2.0 2.0 2.0 Intake and Output 07/11/16 07/11/16 07/12/16 15:00 23:00 07:00 Intake Total 220 ml 120 ml Balance 220 ml 120 ml KELLY STOREY MD July 12, 2016 13:32
[2016-07-12 15:00] VITALS: BP 121/60
[2016-07-12 19:43] VITALS: BP 135/72
[2016-07-12] MEDS: INSULIN DETEMIR 300 UNITS/3 ML INSULN.PEN. SQ SCH (21:00)
[2016-07-12] MEDS: ESCITALOPRAM 10 MG TABLET. PO SCH (22:39)
[2016-07-12] MEDS: ATORVASTATIN CALCIUM 40 MG TABLET. PO SCH (22:40)
[2016-07-12 23:14] VITALS: BP 121/61
[2016-07-13] MEDS: IV NORMAL SALINE 1000ML BAG 1,000 ML IV SCH ×2 (02:18→13:10)
[2016-07-13 03:25] VITALS: BP 141/67
[2016-07-13 07:28] VITALS: BP 142/72
[2016-07-13] MEDS: FUROSEMIDE 40 MG TABLET. PO SCH (09:00)
[2016-07-13] MEDS: ASPIRIN CHEWABLE 81 MG TABLET. PO SCH (09:26)
[2016-07-13] MEDS: MORPHINE ER 15 MG TABLET.ER PO SCH (09:26)
[2016-07-13] MEDS: PREGABALIN 75 MG CAPSULE PO SCH ×2 (09:26→14:08)
[2016-07-13] MEDS: LOSARTAN POTASSIUM 50 MG TABLET. PO SCH (09:27)
[2016-07-13] MEDS: ASCORBIC ACID 500 MG TABLET PO SCH (09:28)
[2016-07-13] MEDS: CARISOPRODOL 350 MG TABLET PO SCH (09:28)
[2016-07-13] MEDS: ATENOLOL 50 MG TABLET. PO SCH (09:29)
[2016-07-13] MEDS: amLODIPine BESYLATE 10 MG TABLET PO SCH (09:29)
[2016-07-13] MEDS: VANCOMYCIN 250 MG/5 ML ORAL SOLUTION. PO SCH ×2 (09:35→13:09)
[2016-07-13] MEDS: INSULIN ASPART 300 UNITS/3 ML INSULN.PEN SQ SCH ×4 (09:45→13:08)
[2016-07-13 09:56] LABS: HEMATOCRIT 46.3 % (39.0-53.0); HEMOGLOBIN 15.3 g/dL (13.0-17.5); RED BLOOD COUNT 5.33 x10^6/uL (4.30-5.70); RED CELL DISTRIBUTION WIDTH 15.7 % (11.5-14.5); WHITE BLOOD COUNT 9.7 x10^3/uL (4.0-11.0)
[2016-07-13] MEDS ORDERED: DOCUSATE SODIUM 100 MG CAPSULE. PO PRN (10:00)
[2016-07-13] MEDS ORDERED: POLYETHYLENE GLYCOL 3350 17 GM PACKET. PO PRN (10:00)
[2016-07-13 10:04] LABS: CALCIUM 7.8 mg/dL (8.5-10.1); CREATININE 0.7 mg/dL (0.7-1.3); GFR 113.5; MAGNESIUM 1.6 mg/dL (1.8-2.4)
[2016-07-13] MEDS ORDERED: VANC500V PO (10:23)
[2016-07-13 10:35] VITALS: BP 137/69
[2016-07-13] MEDS ORDERED: MORP30TA83 PO (10:59)
[2016-07-13] MEDS ORDERED: MAGNESIUM SULFATE 2GM 50 ML IV ONE (11:00)
--- NOTE | 2016-07-13 11:05 | PDOC ---
CARDIO Progress Notes Date and Time Date of Service 07/13/2016 Time of Evaluation 1051 Subjective Subjective: No Chest Pain, No Palpitations, No Dizziness, Other (drowsy & lethargic) Vitals Vitals Vital Signs Date Time Temp Pulse Resp B/P (MAP) Pulse Ox O2 Delivery O2 Flow Rate FiO2 07/13/16 09:29 60 142/72 07/13/16 09:26 18 94 Nasal Cannula 2.0 07/13/16 07:28 98.7 98.7 Weight Weight [ ] Input and Output Intake and Output Intake and Output 07/13/16 07:00 Intake Total 2480 ml Balance 2480 ml Intake Oral 1380 ml IV Total 1100 ml # Voids 7 # Bowel Movements 1 Laboratory Labs Laboratory Tests Test 07/12/16 12:05 07/12/16 16:03 07/13/16 07:35 07/13/16 09:20 Glucose (Fingerstick) 143 mg/dL (70-99) 105 mg/dL (70-99) 124 mg/dL (70-99) White Blood Count 9.7 x10^3/uL (4.0-11.0) Red Blood Count 5.33 x10^6/uL (4.30-5.70) Hemoglobin 15.3 g/dL (13.0-17.5) Hematocrit 46.3 % (39.0-53.0) Mean Corpuscular Volume 87 fL (79-100) Mean Corpuscular Hemoglobin 29 pg (25-35) Mean Corpuscular Hemoglobin Concent 33 g/dL (31-37) Red Cell Distribution Width 15.7 % (11.5-14.5) Platelet Count 174 x10^3/uL (140-400) Sodium Level 140 mmol/L (136-145) Potassium Level 4.0 mmol/L (3.5-5.1) Chloride Level 107 mmol/L (98-107) Carbon Dioxide Level 26 mmol/L (21-32) Anion Gap 7 (6-14) Blood Urea Nitrogen 8 mg/dL (8-26) Creatinine 0.7 mg/dL (0.7-1.3) Estimated GFR (Cockcroft-Gault) 113.5 Glucose Level 181 mg/dL (70-99) Calcium Level 7.8 mg/dL (8.5-10.1) Magnesium Level 1.6 mg/dL (1.8-2.4) Microbiology Micro Microbiology 07/09/16 Blood Culture - Preliminary, Resulted NO GROWTH AFTER 3 DAYS 07/09/16 Urine Culture - Final, Complete 07/09/16 Urine Culture Result 1 (PUMA) - Final, Complete 07/09/16 Antimicrobic Susceptibility - Final, Complete Physical Exam HEENT: Neck Supple W Full Motion Chest: Symmetric, Other (reproducible CP in lower 1/3 of sternum) LUNGS: Other (decreased in bases anteriorly) Heart: S1S2, RRR, no murmurs Abdomen: Soft N/T Extremities: Other (right AKA amputation; 2+ LLE edema) Neurology: alert, follow commands Assessment Assessment 1. Elevated troponin in the setting of urosepsis troponin peaked at 0.1 - echo with preserved LV function @ 60-65% and no segmental wall motion abnormalities associated with encephalopathy which is improved MPI results from [facility] below = abnormal with perfusion defect anteriorly; anteriolaterally and inferolaterally states he was not cathed; advised medical management - he has not followed up since then 2. HTN improved control today taking his meds 3. PAD previous right AKA 4. CAD s/p prior remote PCI(details unknown) see #1 treated with ASA, statins, beta-blockers and ARB Other Comments REVIEW OF [facility] RECORDS: [facility] MPI DONE 04/23/2014: MODERATE SIZED, MODERATE TO SEVERE INTENSITY MIXED BUT PREDOMINANTLY REVERSIBLE DEFECT INVOLVING BASAL TO DISTAL ANTERIOR, INFEROLATERAL AND PORTIONS OF ANTEROLATERAL WALL CONSISTENT WITH ISCHEMIA SUDHA MARTINEZ APRN July 13, 2016 11:05
[2016-07-13] MEDS ORDERED: MAGNESIUM SULFATE 4GM 100 ML IV ONE (11:30)
--- NOTE | 2016-07-13 12:59 | PDOC ---
PROGRESS NOTES Chief Complaint Chief Complaint 1. Toxic encephalopathy from infection 2. UTI: GNR ceftriaxone 3. C.diff colitis vanco PO 4. DM2 5. HTN: 6. PAD: hx AKA. w/ weakness and debility 7. Chronic back pain: cont home pain regimen 8. Prophylaxis: lovenox History of Present Illness History of Present Illness feels poorly today. generalized malaise, myalgias. denies abd pain. + diarrhea Vitals Vitals Vital Signs Date Time Temp Pulse Resp B/P (MAP) Pulse Ox O2 Delivery O2 Flow Rate FiO2 07/13/16 10:35 99.0 58 20 137/69 (91) 92 Nasal Cannula 2.0 99.0 Physical Exam General: Alert, Cooperative, No acute distress Heart: Regular rate, No murmurs Lungs: Clear Abdomen: Normal bowel sounds, Soft, No tenderness, Other (decreased bowel sounds) Extremities: No clubbing, Other (trace edema L LE. AKA R) Skin: No rashes Labs LABS Laboratory Tests Test 07/12/16 16:03 07/13/16 07:35 07/13/16 09:20 07/13/16 11:24 Glucose (Fingerstick) 105 mg/dL (70-99) 124 mg/dL (70-99) 154 mg/dL (70-99) White Blood Count 9.7 x10^3/uL (4.0-11.0) Red Blood Count 5.33 x10^6/uL (4.30-5.70) Hemoglobin 15.3 g/dL (13.0-17.5) Hematocrit 46.3 % (39.0-53.0) Mean Corpuscular Volume 87 fL (79-100) Mean Corpuscular Hemoglobin 29 pg (25-35) Mean Corpuscular Hemoglobin Concent 33 g/dL (31-37) Red Cell Distribution Width 15.7 % (11.5-14.5) Platelet Count 174 x10^3/uL (140-400) Sodium Level 140 mmol/L (136-145) Potassium Level 4.0 mmol/L (3.5-5.1) Chloride Level 107 mmol/L (98-107) Carbon Dioxide Level 26 mmol/L (21-32) Anion Gap 7 (6-14) Blood Urea Nitrogen 8 mg/dL (8-26) Creatinine 0.7 mg/dL (0.7-1.3) Estimated GFR (Cockcroft-Gault) 113.5 Glucose Level 181 mg/dL (70-99) Calcium Level 7.8 mg/dL (8.5-10.1) Magnesium Level 1.6 mg/dL (1.8-2.4) Assessment and Plan Assessmemt and Plan Problems Medical Problems: (1) Altered mental status Status: Acute (2) Hypotension Status: Acute Problems: Comment Review of Relevant I have reviewed the following items marcelle (where applicable) has been applied. Labs Laboratory Tests Test 07/11/16 15:30 07/11/16 16:50 07/11/16 20:58 07/12/16 01:35 Potassium Level 3.0 mmol/L (3.5-5.1) Glucose (Fingerstick) 194 mg/dL (70-99) 194 mg/dL (70-99) 115 mg/dL (70-99) Test 07/12/16 05:15 07/12/16 08:16 07/12/16 12:05 07/12/16 16:03 White Blood Count 13.5 x10^3/uL (4.0-11.0) Red Blood Count 5.35 x10^6/uL (4.30-5.70) Hemoglobin 15.0 g/dL (13.0-17.5) Hematocrit 45.8 % (39.0-53.0) Mean Corpuscular Volume 86 fL (79-100) Mean Corpuscular Hemoglobin 28 pg (25-35) Mean Corpuscular Hemoglobin Concent 33 g/dL (31-37) Red Cell Distribution Width 15.6 % (11.5-14.5) Platelet Count 243 x10^3/uL (140-400) Sodium Level 140 mmol/L (136-145) Potassium Level 3.7 mmol/L (3.5-5.1) Chloride Level 106 mmol/L (98-107) Carbon Dioxide Level 28 mmol/L (21-32) Anion Gap 6 (6-14) Blood Urea Nitrogen 10 mg/dL (8-26) Creatinine 0.7 mg/dL (0.7-1.3) Estimated GFR (Cockcroft-Gault) 113.5 Glucose Level 113 mg/dL (70-99) Calcium Level 7.8 mg/dL (8.5-10.1) Magnesium Level 1.9 mg/dL (1.8-2.4) Glucose (Fingerstick) 121 mg/dL (70-99) 143 mg/dL (70-99) 105 mg/dL (70-99) Test 07/13/16 07:35 07/13/16 09:20 07/13/16 11:24 Glucose (Fingerstick) 124 mg/dL (70-99) 154 mg/dL (70-99) White Blood Count 9.7 x10^3/uL (4.0-11.0) Red Blood Count 5.33 x10^6/uL (4.30-5.70) Hemoglobin 15.3 g/dL (13.0-17.5) Hematocrit 46.3 % (39.0-53.0) Mean Corpuscular Volume 87 fL (79-100) Mean Corpuscular Hemoglobin 29 pg (25-35) Mean Corpuscular Hemoglobin Concent 33 g/dL (31-37) Red Cell Distribution Width 15.7 % (11.5-14.5) Platelet Count 174 x10^3/uL (140-400) Sodium Level 140 mmol/L (136-145) Potassium Level 4.0 mmol/L (3.5-5.1) Chloride Level 107 mmol/L (98-107) Carbon Dioxide Level 26 mmol/L (21-32) Anion Gap 7 (6-14) Blood Urea Nitrogen 8 mg/dL (8-26) Creatinine 0.7 mg/dL (0.7-1.3) Estimated GFR (Cockcroft-Gault) 113.5 Glucose Level 181 mg/dL (70-99) Calcium Level 7.8 mg/dL (8.5-10.1) Magnesium Level 1.6 mg/dL (1.8-2.4) Laboratory Tests Test 07/12/16 16:03 07/13/16 07:35 07/13/16 09:20 07/13/16 11:24 Glucose (Fingerstick) 105 mg/dL (70-99) 124 mg/dL (70-99) 154 mg/dL (70-99) White Blood Count 9.7 x10^3/uL (4.0-11.0) Red Blood Count 5.33 x10^6/uL (4.30-5.70) Hemoglobin 15.3 g/dL (13.0-17.5) Hematocrit 46.3 % (39.0-53.0) Mean Corpuscular Volume 87 fL (79-100) Mean Corpuscular Hemoglobin 29 pg (25-35) Mean Corpuscular Hemoglobin Concent 33 g/dL (31-37) Red Cell Distribution Width 15.7 % (11.5-14.5) Platelet Count 174 x10^3/uL (140-400) Sodium Level 140 mmol/L (136-145) Potassium Level 4.0 mmol/L (3.5-5.1) Chloride Level 107 mmol/L (98-107) Carbon Dioxide Level 26 mmol/L (21-32) Anion Gap 7 (6-14) Blood Urea Nitrogen 8 mg/dL (8-26) Creatinine 0.7 mg/dL (0.7-1.3) Estimated GFR (Cockcroft-Gault) 113.5 Glucose Level 181 mg/dL (70-99) Calcium Level 7.8 mg/dL (8.5-10.1) Magnesium Level 1.6 mg/dL (1.8-2.4) Microbiology 07/09/16 Blood Culture - Preliminary, Resulted NO GROWTH AFTER 3 DAYS 07/09/16 Urine Culture - Final, Complete 07/09/16 Urine Culture Result 1 (PUMA) - Final, Complete 07/09/16 Antimicrobic Susceptibility - Final, Complete Medications Current Medications Ondansetron HCl (Zofran) 4 mg PRN Q8HRS PRN IV NAUSEA/VOMITING Last administered on 07/10/16 08:39; Start 07/09/16 at 15:15; Stop 07/10/16 at 15:21 ; Status DC Morphine Sulfate 2 mg PRN Q2HR PRN IV PAIN; Start 07/09/16 at 15:15; Stop 07/10 at 15:21; Status DC Sodium Chloride 1,000 ml @ 125 mls/hr Q8H IV Last administered on 07/10/16 07 :31; Start 07/09/16 at 15:09; Stop 07/10/16 at 15:21; Status DC Acetaminophen (Tylenol) 650 mg PRN Q4HRS PRN PO FEVER; Start 07/09/16 at 15:15 ; Stop 07/10/16 at 15:21; Status DC Naloxone HCl (Narcan) 0.4 mg 1X ONCE IV Last administered on 07/09/16 15:35; Start 07/09/16 at 15:15; Stop 07/09/16 at 15:24; Status DC Sodium Chloride 1,000 ml @ 1,000 mls/hr 1X ONCE IV Last administered on 14:00; Start 07/09/16 at 15:15; Stop 07/09/16 at 16:14; Status DC Ceftriaxone Sodium 50 ml @ 100 mls/hr 1X ONCE IV Last administered on 15:59; Start 07/09/16 at 15:15; Stop 07/09/16 at 15:44; Status DC Azithromycin 500 mg/Sodium Chloride 250 ml @ 250 mls/hr 1X ONCE IV ; Start at 15:15; Stop 07/09/16 at 16:14; Status UNV Azithromycin 250 ml @ 250 mls/hr 1X ONCE IV Last administered on 07/09/16 16 :44; Start 07/09/16 at 15:30; Stop 07/09/16 at 16:29; Status DC Aspirin (Juan Francisco Aspirin) 325 mg 1X ONCE PO Last administered on 07/09/16 16:44 ; Start 07/09/16 at 16:45; Stop 07/09/16 at 16:46; Status DC Ceftriaxone Sodium 1 gm/ Sodium Chloride 50 ml @ 100 mls/hr Q24H IV Last administered on 07/13/16 09:35; Start 07/10/16 at 09:00; Stop 07/13/16 at 12:51 ; Status DC Hydralazine HCl (Apresoline) 10 mg PRN Q4HRS PRN IVP ELEVATED BP, SEE COMMENTS Last administered on 07/11/16 03:26; Start 07/10/16 at 09:00 Amlodipine Besylate (Norvasc) 10 mg DAILY PO Last administered on 07/13/16 09: 29; Start 07/10/16 at 09:00 Atenolol (Tenormin) 25 mg BID PO ; Start 07/10/16 at 09:00; Stop 07/10/16 at 15: 43; Status DC Atorvastatin Calcium (Lipitor) 40 mg QHS PO ; Start 07/10/16 at 21:00; Stop at 21:00; Status DC Losartan Potassium (Cozaar) 50 mg DAILY PO ; Start 07/10/16 at 09:00; Stop 07/10 at 15:43; Status DC Metoclopramide HCl (Reglan) 10 mg PRN Q8HRS PRN IV NAUSEA/VOMITING Last administered on 07/11/16 14:23; Start 07/10/16 at 10:00 Vancomycin HCl 250 mg [id number] PO Last administered on 07/13/16 09:35; Start at 17:00 Acetaminophen (Tylenol) 650 mg PRN Q6HRS PRN PO PAIN; Start 07/10/16 at 15:00 Amlodipine Besylate (Norvasc) 10 mg DAILY PO ; Start 07/11/16 at 09:00; Status UNV Ascorbic Acid (Vitamin C) 500 mg DAILY PO Last administered on 07/13/16 09:28 ; Start 07/10/16 at 16:00 Aspirin (Children'S Aspirin) 81 mg DAILY PO Last administered on 07/13/16 09: 26; Start 07/10/16 at 16:00 Atenolol (Tenormin) 50 mg BID PO Last administered on 07/13/16 09:29; Start at 21:00 Carisoprodol (Soma) 350 mg PRN Q8HRS PRN PO PAIN; Start 07/10/16 at 15:00 Carisoprodol (Soma) 350 mg DAILY PO Last administered on 07/13/16 09:28; Start 07/11/16 at 09:00 Escitalopram Oxalate (Lexapro) 10 mg HS PO Last administered on 07/12/16 22:39 ; Start 07/10/16 at 21:00 Furosemide (Lasix) 40 mg DAILY PO Last administered on 07/13/16 09:00; Start 07/10/16 at 16:00 Losartan Potassium (Cozaar) 100 mg DAILY PO Last administered on 07/13/16 09: 27; Start 07/10/16 at 16:00 Morphine Sulfate (Ms Contin) 45 mg BID PO Last administered on 07/13/16 09:26 ; Start 07/10/16 at 21:00; Stop 07/13/16 at 11:00; Status DC Nitroglycerin (Nitrostat) 0.4 mg PRN Q5MIN PRN SL CHEST PAIN; Start 07/10/16 at 15:00 Pregabalin (Lyrica) 75 mg TID PO Last administered on 07/13/16 09:26; Start at 15:00 Insulin Detemir (Levemir) 60 units QHS SQ Last administered on 07/11/16 21:03 ; Start 07/10/16 at 21:00 Insulin Aspart (NovoLOG) 6 units TIDAC SQ Last administered on 07/13/16 09:45 ; Start 07/10/16 at 16:30 Insulin Aspart (NovoLOG) TIDAC SQ Last administered on 07/13/16 09:46; Start 07/10/16 at 16:30 Oxycodone HCl (Roxicodone) 15 mg PRN Q6HRS PRN PO PAIN Last administered on 19:35; Start 07/10/16 at 15:30 Atorvastatin Calcium (Lipitor) 80 mg QHS PO Last administered on 07/12/16 22: 40; Start 07/10/16 at 21:00 Non-Formulary Medication 2.5 gm QODAY TP ; Start 07/12/16 at 09:00; Status UNV Ondansetron HCl (Zofran) 8 mg PRN Q8HRS PRN IV NAUSEA/VOMITING Last administered on 07/11/16 05:38; Start 07/10/16 at 15:30 Prochlorperazine Edisylate (Compazine) 10 mg PRN Q8HRS PRN IV NAUSEA/VOMITING Last administered on 07/11/16 01:43; Start 07/10/16 at 15:30 Sodium Chloride 1,000 ml @ 75 mls/hr [id number] IV Last administered on 02:18; Start 07/10/16 at 18:30 Labetalol HCl (Normodyne) 20 mg PRN Q6HRS PRN IVP HYPERTENSION, SEE COMMENTS Last administered on 07/11/16 05:39; Start 07/10/16 at 20:15 Potassium Chloride (Klor-Con) 40 meq 1X ONCE PO ; Start 07/11/16 at 07:00; Stop 07/11/16 at 07:00; Status DC Potassium Chloride 100 ml @ 100 mls/hr Q1H IV Last administered on 07/11/16 12:10; Start 07/11/16 at 07:00; Stop 07/11/16 at 10:59; Status DC Magnesium Sulfate/ Dextrose 50 ml @ 25 mls/hr 1X ONCE IV Last administered on 07/11/16 18:30; Start 07/11/16 at 13:00; Stop 07/11/16 at 14:59; Status DC Potassium Chloride (Klor-Con) 40 meq 1X ONCE PO ; Start 07/11/16 at 13:45; Stop 07/11/16 at 13:46; Status DC Potassium Chloride (Klor-Con) 40 meq 1X ONCE PO Last administered on 19:00; Start 07/11/16 at 18:30; Stop 07/11/16 at 18:31; Status DC Polyethylene Glycol (miraLAX PACKET) 17 gm PRN DAILY PRN PO CONSTIPATION; Start 07/13/16 at 10:00 Docusate Sodium (Colace) 100 mg PRN DAILY PRN PO CONSTIPATION; Start 07/13/16 at 10:00 Magnesium Sulfate/ Dextrose 100 ml @ 25 mls/hr 1X ONCE IV Last administered on 07/13/16 11:19; Start 07/13/16 at 11:30; Stop 07/13/16 at 15:29 Magnesium Sulfate/ Dextrose 50 ml @ 25 mls/hr 1X ONCE IV ; Start 07/13/16 at 11 :00; Stop 07/13/16 at 12:59 Morphine Sulfate (Ms Contin) 30 mg BID PO ; Start 07/13/16 at 21:00 Cefpodoxime Proxetil (Vantin) 200 mg BID PO ; Start 07/13/16 at 21:00 Active Scripts Active Ms Contin (Morphine Sulfate) 30 Mg Tablet.er 30 Tab PO BID Vancomycin Hcl 500 Mg Vial 250 Mg PO [id number] 7 Days Amoxicillin 875 Mg Tablet 1 Tab PO BID Reported Zinc Oxide 30 Gm Oint...g. 30 Gm TP BID patti inner buttocks Vitamin D3 (Cholecalciferol (Vitamin D3)) 5,000 Unit Tablet 1 Tab PO DAILY Stress B With Zinc Tablet (Multivits,Stress Formula/Zinc) 1 Each Tablet 1 Each PO DAILY Soma (Carisoprodol) 350 Mg Tablet 1 Tab PO DAILY Potassium Chloride 10 Meq Capsule.er 10 Meq PO DAILY Oxycodone Hcl 15 Mg Tablet 1 Tab PO Q6HRS PRN Norvasc (Amlodipine Besylate) 10 Mg Tablet 10 Mg PO DAILY Nitrostat (Nitroglycerin) 0.4 Mg Tab.subl 0.4 Mg SL PRN Q5MIN PRN Magnesium (Magnesium Oxide) 400 Mg Capsule 400 Mg PO DAILY Lyrica (Pregabalin) 75 Mg Capsule 75 Mg PO TID Lexapro (Escitalopram Oxalate) 5 Mg Tablet 1 Tab PO HS Escitalopram Oxalate 10 Mg Tablet 1 Tab PO HS Lasix (Furosemide) 40 Mg Tablet 1 Tab PO DAILY Lantus (Insulin Glargine,Hum.rec.anlog) 100 Unit/1 Ml Vial 60 Unit SQ DAILY Imodium A-D (Loperamide HCl) 2 Mg Capsule 2 Mg PO PRN PRN after each loose stool up to 16mg in 24 hours Humalog (Insulin Lispro) 100 Unit/1 Ml Insuln.pen 0-8 Unit SQ TIDAC if fs bs 150-200= 1 unit 201-250= 2 units 250-300= 4 units 301-350= 6 units 351-400= 8 units >[address] [place] (Insulin Lispro) 100 Unit/1 Ml Cartridge 6 Unit SQ TIDAC Baclofen 10 Mg Tablet 1 Tab PO BID Ascorbic Acid 500 Mg Tablet 500 Mg PO DAILY Androgel (Testosterone) 5 Gm Gel.packet 2.5 Gm TP QODAY Tylenol (Acetaminophen) 325 Mg Tablet 650 Mg PO Q6HRS PRN Carisoprodol 350 Mg Tablet 350 Mg PO Q8HRS PRN Temazepam 30 Mg Capsule 1 Cap PO QHS Crestor (Rosuvastatin Calcium) 40 Mg Tablet 20 Mg PO QHS Losartan Potassium 50 Mg Tablet 100 Mg PO DAILY Atenolol 50 Mg Tablet 1 Tab PO BID Metformin Hcl 500 Mg Tablet 1 Tab PO BID Aspirin 81 Mg Tab.chew 81 Mg PO DAILY Sennosides-Docusate Sodium Tab (Sennosides/Docusate Sodium) 1 Each Tablet 2 Each PO BID Miralax (Polyethylene Glycol 3350) 17 Gm Powd.pack 17 Gm PO PRN PRN Vitals/I & O Vital Sign - Last 24 Hours 07/12/16 07/12/16 07/12/16 5/16/17 15:00 19:35 19:43 20:00 Temp 98.0 97.4 98.0 97.4 Pulse 59 59 Resp 16 20 B/P (MAP) 121/60 (80) 135/72 (93) Pulse Ox 96 96 93 O2 Delivery Room Air Nasal Cannula Nasal Cannula Nasal Cannula O2 Flow Rate 2.0 2.0 2.0 07/12/16 07/12/16 07/12/16 07/12/16 20:35 22:38 22:41 23:14 Temp 97.9 97.9 Pulse 59 59 Resp 20 20 20 B/P (MAP) 121/61 121/61 (81) Pulse Ox 93 93 95 O2 Delivery Nasal Cannula Nasal Cannula Nasal Cannula O2 Flow Rate 2.0 2.0 2.0 07/13/16 07/13/16 07/13/16 07/13/16 02:38 03:25 07:28 08:00 Temp 98.7 98.7 Pulse 55 60 Resp 20 20 20 B/P (MAP) 141/67 (91) 142/72 (95) Pulse Ox 94 94 94 O2 Delivery Nasal Cannula Nasal Cannula Nasal Cannula Nasal Cannula O2 Flow Rate 2.0 2.0 2.0 2.0 07/13/16 07/13/16 07/13/16 07/13/16 09:26 09:27 09:29 09:29 Pulse 60 60 60 Resp 18 B/P (MAP) 142/72 142/72 142/72 Pulse Ox 94 O2 Delivery Nasal Cannula O2 Flow Rate 2.0 07/13/16 10:35 Temp 99.0 99.0 Pulse 58 Resp 20 B/P (MAP) 137/69 (91) Pulse Ox 92 O2 Delivery Nasal Cannula O2 Flow Rate 2.0 Intake and Output 07/12/16 07/12/16 07/13/16 15:00 23:00 07:00 Intake Total 500 ml 800 ml 1180 ml Balance 500 ml 800 ml 1180 ml KELLY STOREY MD July 13, 2016 12:59
--- NOTE | 2016-07-13 13:02 | PDOC3 ---
Discharge Summary Visit Information Date of Admission: July 09, 2016 Date of Discharge: July 13, 2016 Admitting Diagnosis: sepsis Final Diagnosis 1. Toxic encephalopathy from infection 2. UTI: GNR julian sens 3. C.diff colitis vanco PO 4. DM2 5. HTN: 6. PAD: hx AKA. w/ weakness and debility 7. Chronic back pain: Problems Medical Problems: (1) Altered mental status Status: Acute (2) Hypotension Status: Acute Brief Hospital Course Allergies Allergies Coded Allergies Type Severity Reaction Last Updated Verified levofloxacin Allergy Intermediate 11/19/13 Yes Vital Signs Vital Signs Date Time Temp Pulse Resp B/P (MAP) Pulse Ox O2 Delivery O2 Flow Rate FiO2 07/13/16 10:35 99.0 58 20 137/69 (91) 92 Nasal Cannula 2.0 99.0 Lab Results Laboratory Tests Test 07/11/16 15:30 07/11/16 16:50 07/11/16 20:58 07/12/16 01:35 Potassium Level 3.0 mmol/L (3.5-5.1) Glucose (Fingerstick) 194 mg/dL (70-99) 194 mg/dL (70-99) 115 mg/dL (70-99) Test 07/12/16 05:15 07/12/16 08:16 07/12/16 12:05 07/12/16 16:03 White Blood Count 13.5 x10^3/uL (4.0-11.0) Red Blood Count 5.35 x10^6/uL (4.30-5.70) Hemoglobin 15.0 g/dL (13.0-17.5) Hematocrit 45.8 % (39.0-53.0) Mean Corpuscular Volume 86 fL (79-100) Mean Corpuscular Hemoglobin 28 pg (25-35) Mean Corpuscular Hemoglobin Concent 33 g/dL (31-37) Red Cell Distribution Width 15.6 % (11.5-14.5) Platelet Count 243 x10^3/uL (140-400) Sodium Level 140 mmol/L (136-145) Potassium Level 3.7 mmol/L (3.5-5.1) Chloride Level 106 mmol/L (98-107) Carbon Dioxide Level 28 mmol/L (21-32) Anion Gap 6 (6-14) Blood Urea Nitrogen 10 mg/dL (8-26) Creatinine 0.7 mg/dL (0.7-1.3) Estimated GFR (Cockcroft-Gault) 113.5 Glucose Level 113 mg/dL (70-99) Calcium Level 7.8 mg/dL (8.5-10.1) Magnesium Level 1.9 mg/dL (1.8-2.4) Glucose (Fingerstick) 121 mg/dL (70-99) 143 mg/dL (70-99) 105 mg/dL (70-99) Test 07/13/16 07:35 07/13/16 09:20 07/13/16 11:24 Glucose (Fingerstick) 124 mg/dL (70-99) 154 mg/dL (70-99) White Blood Count 9.7 x10^3/uL (4.0-11.0) Red Blood Count 5.33 x10^6/uL (4.30-5.70) Hemoglobin 15.3 g/dL (13.0-17.5) Hematocrit 46.3 % (39.0-53.0) Mean Corpuscular Volume 87 fL (79-100) Mean Corpuscular Hemoglobin 29 pg (25-35) Mean Corpuscular Hemoglobin Concent 33 g/dL (31-37) Red Cell Distribution Width 15.7 % (11.5-14.5) Platelet Count 174 x10^3/uL (140-400) Sodium Level 140 mmol/L (136-145) Potassium Level 4.0 mmol/L (3.5-5.1) Chloride Level 107 mmol/L (98-107) Carbon Dioxide Level 26 mmol/L (21-32) Anion Gap 7 (6-14) Blood Urea Nitrogen 8 mg/dL (8-26) Creatinine 0.7 mg/dL (0.7-1.3) Estimated GFR (Cockcroft-Gault) 113.5 Glucose Level 181 mg/dL (70-99) Calcium Level 7.8 mg/dL (8.5-10.1) Magnesium Level 1.6 mg/dL (1.8-2.4) Laboratory Tests Test 07/12/16 16:03 07/13/16 07:35 07/13/16 09:20 07/13/16 11:24 Glucose (Fingerstick) 105 mg/dL (70-99) 124 mg/dL (70-99) 154 mg/dL (70-99) White Blood Count 9.7 x10^3/uL (4.0-11.0) Red Blood Count 5.33 x10^6/uL (4.30-5.70) Hemoglobin 15.3 g/dL (13.0-17.5) Hematocrit 46.3 % (39.0-53.0) Mean Corpuscular Volume 87 fL (79-100) Mean Corpuscular Hemoglobin 29 pg (25-35) Mean Corpuscular Hemoglobin Concent 33 g/dL (31-37) Red Cell Distribution Width 15.7 % (11.5-14.5) Platelet Count 174 x10^3/uL (140-400) Sodium Level 140 mmol/L (136-145) Potassium Level 4.0 mmol/L (3.5-5.1) Chloride Level 107 mmol/L (98-107) Carbon Dioxide Level 26 mmol/L (21-32) Anion Gap 7 (6-14) Blood Urea Nitrogen 8 mg/dL (8-26) Creatinine 0.7 mg/dL (0.7-1.3) Estimated GFR (Cockcroft-Gault) 113.5 Glucose Level 181 mg/dL (70-99) Calcium Level 7.8 mg/dL (8.5-10.1) Magnesium Level 1.6 mg/dL (1.8-2.4) Brief Hospital Course Mr. Rooney is a 66 old admit with confusion and wekaness and diarrhea _ UTI, julian sens, DC on Amox X10 days, complicated UTI c. diff pos, stools normal at DC, diarrhea stopped X24 hours, wears brief at baseline. Discharge Information Condition at Discharge: Improved Follow Up: Weeks Disposition/Orders: D/C to Home Scheduled Amlodipine Besylate (Norvasc), 10 MG PO DAILY, (Reported) Amoxicillin (Amoxicillin), 1 TAB PO BID Ascorbic Acid (Ascorbic Acid), 500 MG PO DAILY, (Reported) Aspirin (Aspirin), 81 MG PO DAILY, (Reported) Atenolol (Atenolol), 1 TAB PO BID, (Reported) Baclofen (Baclofen), 1 TAB PO BID, (Reported) Carisoprodol (Soma), 1 TAB PO DAILY, (Reported) Cholecalciferol (Vitamin D3) (Vitamin D3), 1 TAB PO DAILY, (Reported) Escitalopram Oxalate (Escitalopram Oxalate), 1 TAB PO HS, (Reported) Escitalopram Oxalate (Lexapro), 1 TAB PO HS, (Reported) Furosemide (Lasix), 1 TAB PO DAILY, (Reported) Insulin Glargine,Hum.rec.anlog (Lantus), 60 UNIT SQ DAILY, (Reported) Insulin Lispro (Humalog), 6 UNIT SQ TIDAC, (Reported) Insulin Lispro (Humalog), 0-8 UNIT SQ TIDAC, (Reported) Losartan Potassium (Losartan Potassium), 100 MG PO DAILY, (Reported) Magnesium Oxide (Magnesium), 400 MG PO DAILY, (Reported) Metformin Hcl (Metformin Hcl), 1 TAB PO BID, (Reported) Morphine Sulfate Er (Ms Contin), 30 TAB PO BID Multivits,Stress Formula/Zinc (Stress B With Zinc Tablet), 1 EACH PO DAILY, ( Reported) Potassium Chloride (Potassium Chloride), 10 MEQ PO DAILY, (Reported) Pregabalin (Lyrica), 75 MG PO TID, (Reported) Rosuvastatin Calcium (Crestor), 20 MG PO QHS, (Reported) Sennosides/Docusate Sodium (Sennosides-Docusate Sodium Tab), 2 EACH PO BID, ( Reported) Temazepam (Temazepam), 1 CAP PO QHS, (Reported) Testosterone (Androgel), 2.5 GM TP QODAY, (Reported) Vancomycin Hcl (Vancomycin Hcl), 250 MG PO [id number] Zinc Oxide (Zinc Oxide), 30 GM TP BID, (Reported) Scheduled PRN Acetaminophen (Tylenol), 650 MG PO Q6HRS PRN for PAIN, (Reported) Carisoprodol (Carisoprodol), 350 MG PO Q8HRS PRN for PAIN, (Reported) Loperamide HCl (Imodium A-D), 2 MG PO PRN PRN for DIARRHEA, (Reported) Nitroglycerin (Nitrostat), 0.4 MG SL PRN Q5MIN PRN for CHEST PAIN, (Reported) Oxycodone Hcl (Oxycodone Hcl), 1 TAB PO Q6HRS PRN for PAIN, (Reported) Polyethylene Glycol 3350 (Miralax), 17 GM PO PRN PRN for CONSTIPATION, (Reported ) Patient Instructions Patient Instructions time > 30min angina, chest pain, prior + stress test At [facility] CV team wanted to do MPI, pt refuses DC to [place] KELLY STOREY MD July 13, 2016 13:01
[2016-07-13 14:30] VITALS: BP 95/48
[2016-07-13] MEDS ORDERED: MORPHINE ER 15 MG TABLET.ER PO SCH (21:00)
[2016-07-13] MEDS ORDERED: CEFPODOXIME PROXETIL 100 MG TABLET. PO SCH (21:00)
== END 2016-07-13 16:25 | DRG 871 ==
LOC: ER 13:44 → 2 SOUTH 14:12 → 5 NORTH 07-10 20:35
PROVIDERS: ADMIT Internal Medicine Hematology & Oncology; ATTEND Internal Medicine Hematology & Oncology
DX: A41.9 Sepsis, unspecified organism (principal); G92 Toxic encephalopathy; A04.7 Enterocolitis due to Clostridium difficile; N39.0 Urinary tract infection, site not specified; B96.89 Other specified bacterial agents as the cause of diseases classified elsewhere; E11.51 Type 2 diabetes mellitus with diabetic peripheral angiopathy without gangrene; E78.00 Pure hypercholesterolemia, unspecified; G89.29 Other chronic pain; I10 Essential (primary) hypertension; I25.10 Atherosclerotic heart disease of native coronary artery without angina pectoris; J45.909 Unspecified asthma, uncomplicated; Z82.49 Family history of ischemic heart disease and other diseases of the circulatory system; Z83.3 Family history of diabetes mellitus; Z89.611 Acquired absence of right leg above knee; Z95.5 Presence of coronary angioplasty implant and graft; Z99.2 Dependence on renal dialysis; M54.5 Low back pain; M48.00 Spinal stenosis, site unspecified; Z88.1 Allergy status to other antibiotic agents; I95.9 Hypotension, unspecified
CPT/HCPCS: 36415; 70450; 71010; 80048; 80053; 80329; 81001; 82962; 83605; 83735; 83880; 84132; 84484; 85027; 85610; 85730; 87040; 87086; 87186; 87324; 87641; 93005; 93306; 96361; 96365; 96375; G0480; G0481; J0360; J0456; J0690; J0696; J0780; J1815; J2310; J2405; J2765; J3475; J3480; J3490; J7030; J7060; 97110; 97535; 99285-25

== ENCOUNTER 2016-08-15 01:52 | Inpatient (IN) | payer BC, OTHER ==
[~2016-08-15] VITALS: Ht 172.7 cm; Wt 103.0 kg
[2016-08-15] VITALS (7 sets, daily range): BP systolic 98–147; BP diastolic 57–80
[~2016-08-15 01:52] MED LIST changes: +ACET325T9 PO; +AMLO10TA4 PO; +AMOX875T PO; +ASCO500T3 PO; +ASPI-630 PO; -ASPI81TA2 PO; +BACL10TA PO; +CARI350T PO; +CHOL500016 PO; +ESCITALOPRAM OX10 MG PO; +FURO-68 PO; +INSU100C SQ; +INSU100I11 SQ; +INSU100V8 SQ; +LEXAPRO5 MG PO; +LOPE2CAP88 PO; +MAGN400C PO; +MORP30TA83 PO; +NITR0.4T SL; +POTASSIUM CHLO10 MEQ PO; +PREG75CA PO; +TEST5GEL TP; +VANC500V PO; +ZINC30OI TP; +[UNRECOGNIZED DRUG - CODE] PO
[2016-08-15] MEDS ORDERED: NALOXONE 0.4 MG/ML VIAL. ONE (01:56)
[2016-08-15 02:20] LABS: BASO # 0.1 x10^3/uL (0.0-0.2); BASO % 1 % (0-3); EOS % 1 % (0-3); HEMATOCRIT 48.7 % (39.0-53.0); HEMOGLOBIN 15.5 g/dL (13.0-17.5); LYMPH # 2.6 x10^3/uL (1.0-4.8); LYMPH % 24 % (24-48); MEAN CORPUSCULAR HEMOGLOBIN 28 pg (25-35); MEAN CORPUSCULAR HGB CONC 32 g/dL (31-37); MEAN CORPUSCULAR VOLUME 88 fL (79-100); MONO % 8 % (0-9); NEUT % 67 % (31-73); PLATELET COUNT 227 x10^3/uL (140-400); RED BLOOD COUNT 5.56 x10^6/uL (4.30-5.70); WHITE BLOOD COUNT 10.9 x10^3/uL (4.0-11.0)
[2016-08-15] MEDS ORDERED: NALOXONE 0.4 MG/ML VIAL. IV ONE (02:30)
[2016-08-15 02:34] LABS: CALCIUM 9.2 mg/dL (8.5-10.1); GFR 75.2
[2016-08-15 02:40] LABS: ALBUMIN 3.3 g/dL (3.4-5.0); ALBUMIN/GLOBULIN RATIO 0.7 (1.0-1.7); TOTAL BILIRUBIN 0.3 mg/dL (0.2-1.0); TOTAL PROTEIN 8.1 g/dL (6.4-8.2)
[2016-08-15] MEDS ORDERED: fentaNYL PF VIAL 100 MCG/2 ML VIAL IV ONE (03:00)
[2016-08-15] MEDS ORDERED: NALOXONE 0.4 MG/ML VIAL. IM ONE (03:00)
[2016-08-15] MEDS ORDERED: NITROGLYCERIN SUBLINGUAL 0.4 MG BOTTLE OF 25. SL PRN ×2 (03:15→15:00)
[2016-08-15] MEDS ORDERED: ACETAMINOPHEN 325 MG TABLET. PO PRN ×2 (03:15→09:00)
[2016-08-15] MEDS: fentaNYL PF VIAL 100 MCG/2 ML VIAL IV PRN ×3 (03:15→05:59)
[2016-08-15] MEDS ORDERED: ONDANSETRON PF 4 MG/2 ML VIAL. IV PRN ×2 (03:15→09:00)
[2016-08-15] MEDS ORDERED: FUROSEMIDE 40 MG/4 ML VIAL. IVP ONE (03:30)
[2016-08-15] MEDS ORDERED: ASPIRIN 325 MG TABLET PO ONE (03:30)
--- NOTE | 2016-08-15 04:52 | RAD ---
INDICATION: TRAUMA, FALL, LEFT ANKLE PAIN COMPARISON: None. TECHNIQUE: Axial CT images obtained through the left ankle. One or more of the following individualized dose reduction techniques were utilized for this examination: 1. Automated exposure control; 2. Adjustment of the mA and/or kV according to patient size; 3. Use of iterative reconstruction technique. FINDINGS: There is patchy osseous demineralization seen throughout the osseous structures. Mildly displaced intra-articular fracture of the distal tibia. Partially visualized degenerative changes of the midfoot. IMPRESSION: Intra-articular fracture of the distal tibia with mild displacement. Patchy osseous demineralization is seen throughout. Could be from benign osteopenia but cannot exclude a marrow infiltrative process on this exam. There is edema within the soft tissues most confluent adjacent to the tibial fracture which could be seen with a small amount of associated blood in the soft tissues. Electronically signed by: Héctor Rivera MD (08/15/2016 4:49 AM)
[2016-08-15] MEDS: MORPHINE SULFATE 2 MG/ML DISP.SYRIN. IV PRN ×4 (04:57→13:24)
--- NOTE | 2016-08-15 05:06 | PHYS DOC ---
Past Medical History Past Medical History: Asthma, CAD, Depression, Diabetes-Type II, High Cholesterol, Hypertension, Other Additional Past Medical Histor: PVD,INSOMNIA,SPINAL STENOSIS, HEP C Past Surgical History: Other Additional Past Surgical Histo: RIGHT AKA Alcohol Use: Sober Drug Use: None Adult General Chief Complaint Chief Complaint: MECHANICAL FALL HPI HPI Patient is a 66 year old male who presents with left leg pain. The patient is unable to give history due to depressed mental status upon arrival. EMS reports patient had fall at [facility] yesterday, reportedly XR performed with possible lower leg fracture, no images or report sent. He was given tenazepam, soma, & oxycodone prior to transfer. He is somnolent upon arrival. Review of Systems Review of Systems unable to obtain due to clinical condition. Current Medications Current Medications Current Medications Medications (Trade) Dose Ordered Sig/Aimee Start Time Stop Time Status Last Admin Dose Admin Fentanyl Citrate (Fentanyl 2ml Vial) 50 mcg 1X ONCE 08/15/16 03:00 08/15/16 03:01 DC 08/15/16 02:48 50 MCG Naloxone HCl (Narcan) 0.8 mg 1X ONCE 08/15/16 03:00 08/15/16 03:01 DC 08/15/16 02:00 0.8 MG Allergies Allergies Allergies Coded Allergies Type Severity Reaction Last Updated Verified levofloxacin Allergy Intermediate 11/19/13 Yes Physical Exam Physical Exam Constitutional: obese, somnolent, non-toxic appearance. HENT: Normocephalic, atraumatic, bilateral external ears normal, oropharynx moist, nose normal. Eyes: PERRLA 3 mm bilaterally, EOMI, conjunctiva normal, no discharge. Neck: supple, no stridor. no midline c-spine tenderness Cardiovascular: RRR, no murmurs, no edema. Lungs & Thorax: LCTAB, no wheezing, no respiratory distress. brief periods of apnea Abdomen: soft, nontender, nondistended. Skin: Warm, dry, no erythema, no rash. Back: No spinal tenderness. Extremities: left lower extremity generalized swelling around the ankle & distal tib/fib without obvious deformity, diffuse tenderness with palpation in the same area, no hip or knee tenderness, limited ROM at ankle secondary to pain , dp/pt palpable, sensation intact to foot (after narcan). Neurologic: somnolent, difficult to arouse with sternal rub, answers some questions with single word answers Psychologic: unable to assess due to clinical condition. Current Patient Data Vital Signs Vital Signs Date Time Temp Pulse Resp B/P (MAP) Pulse Ox O2 Delivery O2 Flow Rate FiO2 08/15/16 02:58 68 17 138/63 (88) 95 Nasal Cannula 4.0 Lab Values Laboratory Tests Test 08/15/16 02:09 White Blood Count 10.9 x10^3/uL (4.0-11.0) Red Blood Count 5.56 x10^6/uL (4.30-5.70) Hemoglobin 15.5 g/dL (13.0-17.5) Hematocrit 48.7 % (39.0-53.0) Mean Corpuscular Volume 88 fL (79-100) Mean Corpuscular Hemoglobin 28 pg (25-35) Mean Corpuscular Hemoglobin Concent 32 g/dL (31-37) Red Cell Distribution Width 16.0 % (11.5-14.5) H Platelet Count 227 x10^3/uL (140-400) Neutrophils (%) (Auto) 67 % (31-73) Lymphocytes (%) (Auto) 24 % (24-48) Monocytes (%) (Auto) 8 % (0-9) Eosinophils (%) (Auto) 1 % (0-3) Basophils (%) (Auto) 1 % (0-3) Neutrophils # (Auto) 7.3 x10^3uL (1.8-7.7) Lymphocytes # (Auto) 2.6 x10^3/uL (1.0-4.8) Monocytes # (Auto) 0.9 x10^3/uL (0.0-1.1) Eosinophils # (Auto) 0.1 x10^3/uL (0.0-0.7) Basophils # (Auto) 0.1 x10^3/uL (0.0-0.2) Sodium Level 140 mmol/L (136-145) Potassium Level 5.0 mmol/L (3.5-5.1) Chloride Level 101 mmol/L (98-107) Carbon Dioxide Level 36 mmol/L (21-32) H Anion Gap 3 (6-14) L Blood Urea Nitrogen 17 mg/dL (8-26) Creatinine 1.0 mg/dL (0.7-1.3) Estimated GFR (Cockcroft-Gault) 75.2 BUN/Creatinine Ratio 17 (6-20) Glucose Level 135 mg/dL (70-99) H Calcium Level 9.2 mg/dL (8.5-10.1) Total Bilirubin 0.3 mg/dL (0.2-1.0) Aspartate Amino Transferase (AST) 44 U/L (15-37) H Alanine Aminotransferase (ALT) 38 U/L (16-63) Alkaline Phosphatase 117 U/L (46-116) H Troponin I Quantitative 1.212 ng/mL (0.000-0.055) TU-Lco-Y-Type Natriuretic Peptide 1027 pg/mL (0-124) H Total Protein 8.1 g/dL (6.4-8.2) Albumin 3.3 g/dL (3.4-5.0) L Albumin/Globulin Ratio 0.7 (1.0-1.7) L Laboratory Tests 08/15/16 02:09 Laboratory Tests 08/15/16 02:09 EKG EKG interpreted by me: NSR rate 78, no ST elevation, T waves inverted without ST depression in leads 2, 3, aVF, also present on EKG dated 07/10/2016, normal intervals, no ectopy.[] Radiology/Procedures Radiology/Procedures CXR: interpreted by me: cardiomegaly, pulmonary edema, no infiltrate, no pneumothorax. XR L ankle: interpreted by me: distal tibia fracture, poorly visualized XR L tib/fib: interpreted by me: distal tibia fracture, poorly visualized PROCEDURE: CT LOWER EXTREMITY WO LEFT INDICATION: TRAUMA, FALL, LEFT ANKLE PAIN COMPARISON: None. TECHNIQUE: Axial CT images obtained through the left ankle. One or more of the following individualized dose reduction techniques were utilized for this examination: 1. Automated exposure control; 2. Adjustment of the mA and/or kV according to patient size; 3. Use of iterative reconstruction technique. FINDINGS: There is patchy osseous demineralization seen throughout the osseous structures. Mildly displaced intra-articular fracture of the distal tibia. Partially visualized degenerative changes of the midfoot. IMPRESSION: Intra-articular fracture of the distal tibia with mild displacement. Patchy osseous demineralization is seen throughout. Could be from benign osteopenia but cannot exclude a marrow infiltrative process on this exam. There is edema within the soft tissues most confluent adjacent to the tibial fracture which could be seen with a small amount of associated blood in the soft tissues. Electronically signed by: Jovan Pepper MD (08/15/2016 4:49 AM) DICTATED and SIGNED BY: JOVAN PEPPER MD DATE: 08/15/16 0419[] Course & Med Decision Making Course & Med Decision Making Pertinent Labs and Imaging studies reviewed. (See chart for details) The patient arrives by EMS with depressed mental status. He had been awake and talkative in the ambulance, fall occurred at 1500, no report of change in mental status. Here he was difficult to arouse with sternal rub, having brief periods of apnea. Gave oxygen by nasal cannula and he did require bagging at times. Administered Narcan and he experienced almost immediate improvement in his clinical condition, was awake and answering questions, normal respirations, maintaining oxygen saturations. XR shows tibia fracture but extent of fracture is poorly visualized, CT performed here. Short leg posterior splint placed by ED RN, placement confirmed by me, neurovascularly intact after splint placement. Elevated troponin & BNP, no STEMI, discussed with Dr. Mckenna, will give aspirin & lasix, obtain repeat troponin/EKG. I did not initially order a head CT due to his immediate improvement from narcan, but have added this study at time of admission to evaluate for possible intracranial injury. Recommended admission to the hospital for further evaluation & treatment. I discussed with Dr. Mak who agrees to admit to inpatient status, ortho consult to Dr. Fischer. The patient is being admitted in stable & improved condition. [] Dragon Disclaimer Dragon Disclaimer This electronic medical record was generated, in whole or in part, using a voice recognition dictation system. Departure Departure Impression: Primary Impression: CHF (congestive heart failure) Additional Impressions: Elevated troponin Opiate overdose Fracture of distal end of tibia Disposition: ADMITTED INPATIENT Admitting Physician: Bratxon Mak Condition: IMPROVED Referrals: ESSENCE JUDD (PCP) Problem Qualifiers AURA JACOB MD Aug 15, 2016 05:06
[2016-08-15] MEDS ORDERED: NYST15PO9 TP (05:49)
[2016-08-15] MEDS ORDERED: SILV20CR14 TP (05:49)
[2016-08-15] MEDS ORDERED: DOCU-109 PO (05:49)
--- NOTE | 2016-08-15 06:35 | EKG ---
[facility] [address] [place] [address] Test Date: 2016-08-15 Test Time: 02:27:33 Pat Name: MAGDA SAUCEDO Department: Room: 201 1 Gender: M Refinery Operator Reforming Unit: : 1950 Requested By: AURA JACOB Order Number: [id number] Reading MD: Vasiliy Hall Measurements Intervals [place] Rate: 78 P: 47 NC: 194 QRS: -13 QRSD: 88 T: 28 QT: 376 QTc: 432 Interpretive Statements SINUS RHYTHM LEFTWARD AXIS NONSPECIFIC ST-T WAVE CHANGES. RI6.01 Unconfirmed report Electronically Signed On 08-15-2016 11:09:37 CDT by Vasiliy Hall
--- NOTE | 2016-08-15 07:49 | RAD ---
Indication pain associated with a fall. AP views of the chest were obtained and are compared to an examination 07/09/2016 Heart size is unchanged. There are suspect background changes of moderate pulmonary vascular congestion. There is no consolidated pneumonia. Significant pleural fluid is not seen. There is no pneumothorax. Postoperative changes are noted associated with the right clavicle. IMPRESSION: No focal process seen. Probable moderate pulmonary vascular congestion
--- NOTE | 2016-08-15 07:52 | RAD ---
Indication pain associated with a fall. AP and lateral views of the left tibia and fibula were obtained as well as AP oblique and lateral views of the left ankle. There is probable bony demineralization. There is a mildly distracted fracture involving the tibial diaphysis. The fibula appears unremarkable. IMPRESSION: Mildly distracted traumatic fracture of the distal tibia
[2016-08-15] MEDS ORDERED: hydrALAZINE 20 MG/ML VIAL. IVP PRN (09:00)
[2016-08-15] MEDS ORDERED: ALBUTEROL SULFATE 2.5 MG/3 ML NEBU. NEB PRN (09:00)
--- NOTE | 2016-08-15 09:55 | PDOC2 ---
CARDIAC CONSULT DATE OF CONSULT Date of Consult DATE: 08/15/16 TIME: 09:19 REASON FOR CONSULT Reason for Consult: Elevated troponin, CHF REFERRING PHYSICIAN Referring Physician: Juan SOURCE Source: Chart review, Patient HISTORY OF PRESENT ILLNESS HISTORY OF PRESENT ILLNESS This is a pleasant 66 yo male admitted for complains of fall. Reports that he was sitting up in his electric WC and fell forward and had an apparent tibial fracture which is nonsurgical accdg to ortho. There was no symptoms of SOA, CP , nor palpitations. Pt reports of CAD. Presently denies any discomfort. Prior to his fall he has not been having any symptoms. He did have an abnormal MPI in the past which was elected to be treated medically. PAST MEDICAL HISTORY Cardiovascular: CAD, HTN, Hyperlipidemia, Other (PAD) Pulmonary: Asthma Psych: Depression Musculoskeletal: low back pain, Osteoarthritis, Other (falls) Endocrine: Diabetes (2) Dermatology: Other (left heel ulcer) PAST SURGICAL HISTORY Past Surgical History: Other (bilateral fempop; RAKA) FAMILY HISTORY Family History: Diabetes, Hypertension SOCIAL HISTORY Smoke: No ALCOHOL: none Drugs: None Lives: Retirement CURRENT MEDICATIONS CURRENT MEDICATIONS Current Medications Medications (Trade) Dose Ordered Sig/Aimee Route PRN Reason Start Time Stop Time Status Last Admin Dose Admin Naloxone HCl (Narcan) 0.8 mg 1X ONCE IM 08/15/16 03:00 08/15/16 03:01 DC 08/15/16 02:00 Fentanyl Citrate (Fentanyl 2ml Vial) 50 mcg 1X ONCE IV 08/15/16 03:00 08/15/16 03:01 DC 08/15/16 02:48 Furosemide (Lasix) 40 mg 1X ONCE IVP 08/15/16 03:30 08/15/16 03:31 DC 08/15/16 03:45 Aspirin (Juan Francisco Aspirin) 325 mg 1X ONCE PO 08/15/16 03:30 08/15/16 03:31 DC 08/15/16 03:45 Fentanyl Citrate (Fentanyl 2ml Vial) 50 mcg PRN Q15MIN PRN IV PAIN GREATER THAN 3/10 08/15/16 03:15 08/16/16 03:14 08/15/16 05:59 Morphine Sulfate 2 mg PRN Q2HR PRN IV SEVERE PAIN 08/15/16 03:15 08/16/16 03:14 08/15/16 07:31 ALLERGIES ALLERGIES: Coded Allergies: levofloxacin (Verified Allergy, Intermediate, 11/19/13) ROS Review of System 14 point ROS evaluated with pertinent positives noted per HPI PHYSICAL EXAM General: Alert, Oriented X3, Cooperative, No acute distress HEENT: Atraumatic, Mucous membr. moist/pink Lungs: Other (diminished bases) Heart: Regular rate, Normal S1, Normal S2, No murmurs Abdomen: Soft, No tenderness Extremities: No cyanosis, Other (unable to asses LLE due to leg wrap and splint but positive for sensation, mobility, toes warm to touch. ) Neuro: Normal speech, Sensation intact Psych/Mental Status: Mental status NL, Mood NL MUSCULOSKELETAL: Osteoarthritic changes both hands VITALS VITALS Vital Signs Date Time Temp Pulse Resp B/P (MAP) Pulse Ox O2 Delivery O2 Flow Rate FiO2 08/15/16 08:01 16 93 Nasal Cannula 4.0 08/15/16 07:59 98.7 69 108/57 (74) 98.7 LABS Lab: Laboratory Tests Test 08/15/16 02:09 08/15/16 07:44 White Blood Count 10.9 x10^3/uL (4.0-11.0) Red Blood Count 5.56 x10^6/uL (4.30-5.70) Hemoglobin 15.5 g/dL (13.0-17.5) Hematocrit 48.7 % (39.0-53.0) Mean Corpuscular Volume 88 fL (79-100) Mean Corpuscular Hemoglobin 28 pg (25-35) Mean Corpuscular Hemoglobin Concent 32 g/dL (31-37) Red Cell Distribution Width 16.0 % (11.5-14.5) Platelet Count 227 x10^3/uL (140-400) Neutrophils (%) (Auto) 67 % (31-73) Lymphocytes (%) (Auto) 24 % (24-48) Monocytes (%) (Auto) 8 % (0-9) Eosinophils (%) (Auto) 1 % (0-3) Basophils (%) (Auto) 1 % (0-3) Neutrophils # (Auto) 7.3 x10^3uL (1.8-7.7) Lymphocytes # (Auto) 2.6 x10^3/uL (1.0-4.8) Monocytes # (Auto) 0.9 x10^3/uL (0.0-1.1) Eosinophils # (Auto) 0.1 x10^3/uL (0.0-0.7) Basophils # (Auto) 0.1 x10^3/uL (0.0-0.2) Sodium Level 140 mmol/L (136-145) Potassium Level 5.0 mmol/L (3.5-5.1) Chloride Level 101 mmol/L (98-107) Carbon Dioxide Level 36 mmol/L (21-32) Anion Gap 3 (6-14) Blood Urea Nitrogen 17 mg/dL (8-26) Creatinine 1.0 mg/dL (0.7-1.3) Estimated GFR (Cockcroft-Gault) 75.2 BUN/Creatinine Ratio 17 (6-20) Glucose Level 135 mg/dL (70-99) Calcium Level 9.2 mg/dL (8.5-10.1) Total Bilirubin 0.3 mg/dL (0.2-1.0) Aspartate Amino Transf (AST/SGOT) 44 U/L (15-37) Alanine Aminotransferase (ALT/SGPT) 38 U/L (16-63) Alkaline Phosphatase 117 U/L (46-116) Troponin I Quantitative 1.212 ng/mL (0.000-0.055) PQ-Rkt-R-Type Natriuretic Peptide 1027 pg/mL (0-124) Total Protein 8.1 g/dL (6.4-8.2) Albumin 3.3 g/dL (3.4-5.0) Albumin/Globulin Ratio 0.7 (1.0-1.7) Glucose (Fingerstick) 185 mg/dL (70-99) ECHOCARDIOGRAM ECHOCARDIOGRAM <Conclusion> The left ventricular systolic function is normal and the ejection fraction is within normal range. The Ejection Fraction is 60-65%. There is normal LV segmental wall motion. DATE: 07/11/16 1705 STRESS TEST STRESS TEST REGADENOSON MPI DONE 04/23/2014: MODERATE SIZED, MODERATE TO SEVERE INTENSITY MIXED BUT PREDOMINANTLY REVERSIBLE DEFECT INVOLVING BASAL TO DISTAL ANTERIOR, INFEROLATERAL AND PORTIONS OF ANTEROLATERAL WALL CONSISTENT WITH ISCHEMIA Medical management advised at that from [facility] but failed to follow up after. ASSESSMENT/PLAN ASSESSMENT/PLAN 1. Traumatic fall: left tibial fracture. Fell over asleep from electric [employer]. 2. Suspecting Rhabdomyolysis 3. NSTEMI: initial troponin 1.2, no significant changes with EKG by comparison. Likely type 2. No cardiac symptoms 4. Acute on chronic diastolic CHF: Lasix IV received. Appears better 5. CAD: PCI/stent in past, unknown date. 6. PAD: fempop in the past and RAKA 7. HTN: controlled 8. HLP: HDL low otherwise close to goal from recent lipids. 9. DM2 10. UTI Recommendations 1. Limited TTE, continue with troponin series, check CK 2. Pt does not want any invasive cardiac testing after significant discussion. Will treat medically 3. Continue with secondary prevention. ASA/plavix 4. Strict I & O. Resume norvasc, atenolol, hold losartan for now per BP tolerance. 5. Ortho consult pending Problems: RUMA KAPLAN BUSINESS SERVICES DIRECTOR Aug 15, 2016 09:55
[2016-08-15] MEDS: FUROSEMIDE 40 MG TABLET. PO SCH (10:31)
[2016-08-15] MEDS: amLODIPine BESYLATE 10 MG TABLET PO SCH (10:31)
[2016-08-15] MEDS: ATENOLOL 50 MG TABLET. PO SCH ×2 (10:32→21:35)
--- NOTE | 2016-08-15 10:34 | RAD ---
CT head without contrast History: Fall, altered mental status. Comparison: 07/09/2016. Procedure: Axial images are obtained of the head from the skull base through the vertex without IV contrast. Findings: The ventricles and sulci are normal for the patient's age. No mass-effect, intracranial mass, midline shift, hemorrhage or obvious acute infarction is identified. Basilar cisterns are patent. Bone windows demonstrate no significant calvarial abnormality. The visualized paranasal sinuses appear clear. Mild bilateral periventricular white matter hypodensities likely chronic small vessel ischemic disease. Impression: 1. No acute intracranial process. PQRS Compliance Statement: One or more of the following individualized dose reduction techniques were utilized for this examination: 1. Automated exposure control 2. Adjustment of the mA and/or kV according to patient size 3. Use of iterative reconstruction technique faint
--- NOTE | 2016-08-15 11:25 | PDOC1 ---
History and Physical Past Medical History Cardiovascular: CAD, HTN, Hyperlipidemia, Other (PAD) Pulmonary: Asthma Psych: Depression Endocrine: Diabetes (2) Dermatology: Other (left heel ulcer) Past Surgical History Past Surgical History: Other (bilateral fempop; RAKA) Family History Family History: Diabetes, Hypertension Social History Smoke: No ALCOHOL: none Drugs: None Current Problem List Problem List Problems Medical Problems: (1) Fracture of distal end of tibia Status: Acute (2) Opiate overdose Status: Acute Current Medications Current Medications Current Medications Medications (Trade) Dose Ordered Sig/Aimee Start Time Stop Time Status Last Admin Dose Admin Acetaminophen (Tylenol) 325 mg PRN Q6HRS PRN 08/15/16 09:00 Acetaminophen/ Hydrocodone Bitart (Lortab 5/325) 1 tab PRN Q6HRS PRN 08/15/16 09:00 Albuterol Sulfate (Ventolin Neb Soln) 2.5 mg PRN Q4HRS PRN 08/15/16 09:00 Amlodipine Besylate (Norvasc) 10 mg DAILY 08/15/16 10:30 08/15/16 10:31 10 MG Aspirin (Juan Francisco Aspirin) 325 mg 1X ONCE 08/15/16 03:30 08/15/16 03:31 DC 08/15/16 03:45 325 MG Atenolol (Tenormin) 50 mg BID 08/15/16 10:30 08/15/16 10:32 50 MG Enoxaparin Sodium (Lovenox 40mg Syringe) 40 mg Q24H 08/15/16 12:00 Fentanyl Citrate (Fentanyl 2ml Vial) 50 mcg PRN Q15MIN PRN 08/15/16 03:15 08/16/16 03:14 08/15/16 05:59 50 MCG Furosemide (Lasix) 40 mg DAILY 08/15/16 10:30 08/15/16 10:31 40 MG Hydralazine HCl (Apresoline) 10 mg PRN Q4HRS PRN 08/15/16 09:00 Morphine Sulfate 2 mg PRN Q2HR PRN 08/15/16 03:15 08/16/16 03:14 08/15/16 09:51 2 MG Naloxone HCl (Narcan) 0.8 mg 1X ONCE 08/15/16 03:00 08/15/16 03:01 DC 08/15/16 02:00 0.8 MG Nitroglycerin (Nitrostat) 0.4 mg PRN Q5MIN PRN 08/15/16 03:15 08/16/16 03:14 Ondansetron HCl (Zofran) 4 mg PRN Q8HRS PRN 08/15/16 09:00 Allergies Allergies Allergies Coded Allergies Type Severity Reaction Last Updated Verified levofloxacin Allergy Intermediate 11/19/13 Yes ROS Review of System CONSTITUTIONAL: fall EYES: No recent changes SKIN: No rash or itching CARDIOVASCULAR: No chest pain, syncope, palpitations, or edema RESPIRATORY: No SOB or cough GASTROINTESTINAL: No nausea, vomiting or abdominal pain NEUROLOGICAL: No headaches or weakness ENDOCRINE: No cold or heat intolerance GENITOURINARY: No urgency or frequency of urination MUSCULOSKELETAL: No back pain or joint pain LYMPHATICS: No enlarged lymph nodes PSYCHIATRIC: No anxiety or depression Physical Exam Physical Exam GEN.: No apparent distress. Alert and oriented times, 3, slow to respond HEENT: Head is normocephalic, atraumatic NECK: Supple. LUNGS: Clear to auscultation. HEART: RRR, S1, S2 present. Peripheral pulses intact ABDOMEN: Soft, nontender. Positive bowel sounds. EXTREMITIES: R AKA NEUROLOGIC: Normal speech, normal tone PSYCHIATRIC: Normal affect, normal mood. SKIN: EDEMA IN L CIDNY Vitals Vitals Vital Signs Date Time Temp Pulse Resp B/P (MAP) Pulse Ox O2 Delivery O2 Flow Rate FiO2 08/15/16 11:15 98.2 64 20 116/58 (77) 91 Nasal Cannula 98.2 08/15/16 10:21 4.0 Labs Labs Laboratory Tests Test 08/15/16 02:09 08/15/16 07:44 08/15/16 09:05 White Blood Count 10.9 x10^3/uL (4.0-11.0) Red Blood Count 5.56 x10^6/uL (4.30-5.70) Hemoglobin 15.5 g/dL (13.0-17.5) Hematocrit 48.7 % (39.0-53.0) Mean Corpuscular Volume 88 fL (79-100) Mean Corpuscular Hemoglobin 28 pg (25-35) Mean Corpuscular Hemoglobin Concent 32 g/dL (31-37) Red Cell Distribution Width 16.0 % (11.5-14.5) Platelet Count 227 x10^3/uL (140-400) Neutrophils (%) (Auto) 67 % (31-73) Lymphocytes (%) (Auto) 24 % (24-48) Monocytes (%) (Auto) 8 % (0-9) Eosinophils (%) (Auto) 1 % (0-3) Basophils (%) (Auto) 1 % (0-3) Neutrophils # (Auto) 7.3 x10^3uL (1.8-7.7) Lymphocytes # (Auto) 2.6 x10^3/uL (1.0-4.8) Monocytes # (Auto) 0.9 x10^3/uL (0.0-1.1) Eosinophils # (Auto) 0.1 x10^3/uL (0.0-0.7) Basophils # (Auto) 0.1 x10^3/uL (0.0-0.2) Sodium Level 140 mmol/L (136-145) Potassium Level 5.0 mmol/L (3.5-5.1) Chloride Level 101 mmol/L (98-107) Carbon Dioxide Level 36 mmol/L (21-32) Anion Gap 3 (6-14) Blood Urea Nitrogen 17 mg/dL (8-26) Creatinine 1.0 mg/dL (0.7-1.3) Estimated GFR (Cockcroft-Gault) 75.2 BUN/Creatinine Ratio 17 (6-20) Glucose Level 135 mg/dL (70-99) Calcium Level 9.2 mg/dL (8.5-10.1) Total Bilirubin 0.3 mg/dL (0.2-1.0) Aspartate Amino Transf (AST/SGOT) 44 U/L (15-37) Alanine Aminotransferase (ALT/SGPT) 38 U/L (16-63) Alkaline Phosphatase 117 U/L (46-116) Troponin I Quantitative 1.212 ng/mL (0.000-0.055) 0.887 ng/mL (0.000-0.055) UQ-Geb-A-Type Natriuretic Peptide 1027 pg/mL (0-124) Total Protein 8.1 g/dL (6.4-8.2) Albumin 3.3 g/dL (3.4-5.0) Albumin/Globulin Ratio 0.7 (1.0-1.7) Glucose (Fingerstick) 185 mg/dL (70-99) Creatine Kinase 431 U/L (39-308) Laboratory Tests Test 08/15/16 02:09 08/15/16 07:44 08/15/16 09:05 White Blood Count 10.9 x10^3/uL (4.0-11.0) Red Blood Count 5.56 x10^6/uL (4.30-5.70) Hemoglobin 15.5 g/dL (13.0-17.5) Hematocrit 48.7 % (39.0-53.0) Mean Corpuscular Volume 88 fL (79-100) Mean Corpuscular Hemoglobin 28 pg (25-35) Mean Corpuscular Hemoglobin Concent 32 g/dL (31-37) Red Cell Distribution Width 16.0 % (11.5-14.5) Platelet Count 227 x10^3/uL (140-400) Neutrophils (%) (Auto) 67 % (31-73) Lymphocytes (%) (Auto) 24 % (24-48) Monocytes (%) (Auto) 8 % (0-9) Eosinophils (%) (Auto) 1 % (0-3) Basophils (%) (Auto) 1 % (0-3) Neutrophils # (Auto) 7.3 x10^3uL (1.8-7.7) Lymphocytes # (Auto) 2.6 x10^3/uL (1.0-4.8) Monocytes # (Auto) 0.9 x10^3/uL (0.0-1.1) Eosinophils # (Auto) 0.1 x10^3/uL (0.0-0.7) Basophils # (Auto) 0.1 x10^3/uL (0.0-0.2) Sodium Level 140 mmol/L (136-145) Potassium Level 5.0 mmol/L (3.5-5.1) Chloride Level 101 mmol/L (98-107) Carbon Dioxide Level 36 mmol/L (21-32) Anion Gap 3 (6-14) Blood Urea Nitrogen 17 mg/dL (8-26) Creatinine 1.0 mg/dL (0.7-1.3) Estimated GFR (Cockcroft-Gault) 75.2 BUN/Creatinine Ratio 17 (6-20) Glucose Level 135 mg/dL (70-99) Calcium Level 9.2 mg/dL (8.5-10.1) Total Bilirubin 0.3 mg/dL (0.2-1.0) Aspartate Amino Transf (AST/SGOT) 44 U/L (15-37) Alanine Aminotransferase (ALT/SGPT) 38 U/L (16-63) Alkaline Phosphatase 117 U/L (46-116) Troponin I Quantitative 1.212 ng/mL (0.000-0.055) 0.887 ng/mL (0.000-0.055) AE-Qxo-L-Type Natriuretic Peptide 1027 pg/mL (0-124) Total Protein 8.1 g/dL (6.4-8.2) Albumin 3.3 g/dL (3.4-5.0) Albumin/Globulin Ratio 0.7 (1.0-1.7) Glucose (Fingerstick) 185 mg/dL (70-99) Creatine Kinase 431 U/L (39-308) VTE Prophylaxis Ordered VTE Prophylaxis Devices: Yes VTE Pharmacological Prophylaxi: Yes LYNDON WYATT MD Aug 15, 2016 11:25
[2016-08-15] MEDS: HYDROcodone/APAP 5/325MG 1 TAB TABLET PO PRN ×2 (13:24→21:36)
[2016-08-15] MEDS: ENOXAPARIN 40 MG/0.4 ML SYRINGE. SQ SCH (13:25)
--- NOTE | 2016-08-15 14:05 | EKG ---
[facility] [address] [place] [address] Test Date: 2016-08-15 Test Time: 11:53:09 Pat Name: MAGDA SAUCEDO Department: Room: 201 1 Gender: M [employer] Internship: : 1950 Requested By: AURA JACOB Order Number: [id number] Reading MD: Vasiliy Hall Measurements Intervals Kennedy Rate: 70 P: 52 TN: 200 QRS: -30 QRSD: 92 T: -38 QT: 406 QTc: 441 Interpretive Statements SINUS RHYTHM ABNORMAL LEFT AXIS DEVIATION R-S TRANSITION ZONE IN V LEADS DISPLACED TO THE LEFT QRS(T) CONTOUR ABNORMALITY CONSIDER ANTEROSEPTAL MYOCARDIAL DAMAGE ST & T ABNORMALITY, CONSIDER INFERIOR ISCHEMIA OR LEFT VENTRICULAR STRAIN ABNORMAL ECG RI6.01 Compared to ECG 08/15/2016 02:27:33 T-wave abnormality now present Possible ischemia now present ST (T wave) deviation no longer present Electronically Signed On 08-17-2016 11:13:47 CDT by Vasiliy Hall
--- NOTE | 2016-08-15 15:27 | CARD ---
APPROVED REPORT EXAM: Two-dimensional and M-mode echocardiogram with Doppler and color Doppler. Other Information Quality : GoodHR: 56bpm Rhythm : Bradycardia INDICATION LV Function:Systolic Elevated troponin 2D DIMENSIONS RVDd3.2 (2.9-3.5cm)Left Atrium(2D)3.6 (1.6-4.0cm) IVSd1.0 (0.7-1.1cm)Aortic Root(2D)3.1 (2.0-3.7cm) LVDd4.3 (3.9-5.9cm)LVOT Diameter2.3 (1.8-2.4cm) PWd1.0 (0.7-1.1cm)LVDs3.4 (2.5-4.0cm) FS (%) 19.7 %SV33.0 ml LVEF(%)40.8 (>50%) LEFT VENTRICLE The left ventricle is normal size. There is normal left ventricular wall thickness. The left ventricu lar systolic function is normal and the ejection fraction is within normal range. The Ejection Fracti on is 55-60%. There is normal LV segmental wall motion. Limited echo, left ventricular compliance was not assessed. RIGHT VENTRICLE The right ventricle is normal size. There is normal right ventricular wall thickness. The right ventr icular systolic function is normal. ATRIA The left atrium is mildly dilated. The right atrium size is normal. The interatrial septum is intact with no evidence for an atrial septal defect or patent foramen ovale as noted on 2-D or Doppler imagi ng. GREAT VESSELS The aortic root is normal in size. PERICARDIAL EFFUSION There is no evidence of significant pericardial effusion. Critical Notification Critical Value: No <Conclusion> The left ventricular systolic function is normal and the ejection fraction is within normal range. Th e Ejection Fraction is 55-60%. There is normal LV segmental wall motion.
[2016-08-15] MEDS: CLOPIDOGREL BISULFATE 75 MG TABLET PO SCH (16:31)
[2016-08-15] MEDS: LOSARTAN POTASSIUM 50 MG TABLET. PO SCH (16:31)
[2016-08-15] MEDS: INSULIN DETEMIR 300 UNITS/3 ML INSULN.PEN. SQ SCH (16:33)
[2016-08-15] MEDS: INSULIN ASPART 300 UNITS/3 ML INSULN.PEN SQ SCH (16:34)
[2016-08-15] MEDS ORDERED: ATORVASTATIN CALCIUM 10 MG TABLET. PO SCH (21:00)
--- NOTE | 2016-08-15 21:24 | HP ---
ADMIT DATE: 08/15/2016 CHIEF COMPLAINT: Mechanical fall. HISTORY OF PRESENT ILLNESS: This 66-year-old male patient was brought to the hospital for a left leg pain. Reportedly, the patient had some depressed mental state on arrival. It could be due to home medications. The patient received some Narcan and upon receiving of Narcan, his mental status improved. At the time of my examination, he is able to have good conversations but he is very slow to respond. The patient has mild elevation of troponins and has left ankle fracture for which he was brought into the hospital. This morning the patient's pain which has been controlled and 08/06, PAST MEDICAL HISTORY: Asthma, coronary artery disease, depression, type 2 diabetes mellitus, hyperlipidemia, hypertension, peripheral artery disease, insomnia, spinal stenosis, and hepatitis B. PAST SURGICAL HISTORY: Right AKA. PERSONAL HISTORY: No alcohol, no drug use REVIEW OF SYSTEMS: Please see my electronic H and P. ALLERGIES: LEVAQUIN. PHYSICAL EXAMINATION: Please see my electronic H and P. LABORATORY DATA: CBC within normal limits. Chemistry; troponins and second was 0.087, sodium 140, potassium 5, chloride 101, and carbon dioxide IMAGING DATA: CT of the head, no acute intracranial process seen. Lower extremity CT, intact fraction of the distal tibia with mild displacement. Tibia fibula x-ray, mild fracture of the distal tibia. ASSESSMENT AND PLAN: 1. Distal tibial fracture in remission. 2. Status post mechanical fall. 3. Mild elevation of troponin, N-STEMI. 4. Hyperglycemia, type 2 diabetes mellitus. 5. AMS duet o medications, narcotics, resolved. 6. Right AKA. 7. Depression. 8. Hyperlipidemia. 9. Hypertension. PLAN: The patient has been admitted to the hospital and cardiology has been consulted, but patient declined to do any further intervention. Suggested stress test or cardiac catheterization, which has been discussed with the filler and trimmer. Sliding scale insulin for hyperglycemia. avoid co2 narcosis. P.r.n. albuterol. Increase Lasix. Home medication reviewed and counselled. Orthopedics has been consulted.need SNU replacement. Overall prognosis guarded. Continue telemetry. Physical therapy and occupation therapy. DVT prophylaxis with Lovenox. iv Hydration, labs ordered for CPK and myoglobin. LYNDON WYATT MD DR: BRIAN/eric JOB#: [id number] / [id number] [place]
[2016-08-15] MEDS: ESCITALOPRAM 10 MG TABLET. PO SCH (21:34)
[2016-08-15] MEDS: ATORVASTATIN CALCIUM 40 MG TABLET. PO SCH (21:34)
[2016-08-15] MEDS: TEMAZEPAM 15 MG CAPSULE PO SCH (21:35)
[2016-08-15] MEDS: BACLOFEN 10 MG TABLET. PO SCH (21:35)
[2016-08-16 03:00] VITALS: BP 127/56
[2016-08-16] MEDS: oxyCODONE IR 5 MG TABLET PO PRN ×3 (03:20→22:15)
[2016-08-16 04:38] LABS: BASO # 0.1 x10^3/uL (0.0-0.2); BASO % 1 % (0-3); EOS % 2 % (0-3); HEMATOCRIT 44.8 % (39.0-53.0); HEMOGLOBIN 14.5 g/dL (13.0-17.5); LYMPH # 2.2 x10^3/uL (1.0-4.8); LYMPH % 27 % (24-48); MEAN CORPUSCULAR HEMOGLOBIN 28 pg (25-35); MEAN CORPUSCULAR HGB CONC 32 g/dL (31-37); MEAN CORPUSCULAR VOLUME 86 fL (79-100); MONO % 11 % (0-9); NEUT % 61 % (31-73); PLATELET COUNT 209 x10^3/uL (140-400); RED BLOOD COUNT 5.18 x10^6/uL (4.30-5.70); RED CELL DISTRIBUTION WIDTH 15.9 % (11.5-14.5); WHITE BLOOD COUNT 8.4 x10^3/uL (4.0-11.0)
[2016-08-16 04:50] LABS: CALCIUM 8.9 mg/dL (8.5-10.1); CREATININE 0.9 mg/dL (0.7-1.3); POTASSIUM 3.7 mmol/L (3.5-5.1)
--- NOTE | 2016-08-16 05:00 | CONS ---
DATE OF CONSULTATION: 08/15/2016 REFERRING PROVIDER: Jennie Martinez MD. CONSULTING PROVIDER: Ima Frey MD REASON FOR CONSULTATION: Left distal tibia fracture. CHIEF COMPLAINT: Left leg pain. HISTORY OF PRESENT ILLNESS: The patient is a very pleasant 66-year-old gentleman who presented to our facility after he fell yesterday and had inability to bear weight and pain in his left lower extremity. He tells me his pain has been quite sore, but not progressive. He feels the pain in his leg. It is worse with any attempted movement of his leg. Denies any abnormal sensation. Denies pain anywhere else. REVIEW OF SYSTEMS: Negative except as per HPI. ALLERGIES: LEVOFLOXACIN. MEDICATIONS: Reviewed, please see MRAD. PAST MEDICAL HISTORY: Asthma, coronary artery disease, depression, right above knee amputation, type 2 diabetes, hypercholesterolemia, hypertension, peripheral vascular disease, hepatitis C, spinal stenosis. SOCIAL HISTORY: No alcohol or tobacco. FAMILY HISTORY: Noncontributory. PHYSICAL EXAMINATION: GENERAL: The patient is alert. He is in mild amount of acute distress secondary to pain. He answers and asks questions appropriately. HEENT: Head normocephalic, atraumatic. Extraocular muscles are intact. CARDIOVASCULAR: Regular rate and rhythm, dorsalis pedis 1+ on the left. LUNGS: Respirations are unlabored. He has symmetric chest raise. ABDOMEN: Soft, nondistended. EXTREMITIES: Examination of bilateral lower extremities reveals an above knee amputation without any complication at this time on the right side. Examination of his left lower extremity reveals edema at his foot and ankle up to his mid tibial region. All compartments are soft and easily compressible. No pain with passive range of motion at great toe. He has pain at his ankle with ankle range of motion. Normal sensation of left forefoot. No tenderness around his knee. IMAGING: X-rays are interpreted by myself. CT is interrupted by myself. The report for these studies also reviewed as well as the tib-fib x-ray. He has a nondisplaced intraarticular distal tibia fracture. IMPRESSION: Closed left nondisplaced intraarticular distal tibia fracture. PLAN: From my standpoint, he needs to be nonweightbearing left lower extremity. We will ask plant changer to place him into a Cam boot. He also had an elevated troponin and Cardiology is evaluating him. I would anticipate he would need placement secondary to his mobility that this injury will impose. IAM FREY MD DR: CHRISTIANA/eric JOB#: [id number] / [id number] [place]
[2016-08-16 07:00] VITALS: BP 114/45
--- NOTE | 2016-08-16 07:16 | EKG ---
[facility] [address] [place] [address] Test Date: 2016-08-15 Test Time: 17:55:53 Pat Name: MAGDA SAUCEDO Department: Room: 201 1 Gender: M [employer]: : 1950 Requested By: AURA JACOB Order Number: [id number] Reading MD: Vasiliy Hall Measurements Intervals [place] Rate: 57 P: 56 CA: 200 QRS: -46 QRSD: 90 T: -56 QT: 422 QTc: 414 Interpretive Statements SINUS RHYTHM ABNORMAL LEFT AXIS DEVIATION LEFT ANTERIOR FASCICULAR BLOCK QRS(T) CONTOUR ABNORMALITY CONSIDER ANTEROSEPTAL MYOCARDIAL DAMAGE ST & T ABNORMALITY, CONSIDER INFERIOR ISCHEMIA OR LEFT VENTRICULAR STRAIN ABNORMAL ECG RI6.01 Electronically Signed On 08-17-2016 11:18:09 CDT by Vasiliy Hall
[2016-08-16] MEDS: INSULIN ASPART 300 UNITS/3 ML INSULN.PEN SQ SCH ×3 (07:30→18:02)
[2016-08-16] MEDS: LOSARTAN POTASSIUM 50 MG TABLET. PO SCH (09:00)
[2016-08-16] MEDS: silver sulfADIAZINE 1% CREAM 25GM TUBE. TP SCH (09:00)
[2016-08-16] MEDS: amLODIPine BESYLATE 10 MG TABLET PO SCH (09:00)
[2016-08-16] MEDS ORDERED: ASPIRIN CHEWABLE 81 MG TABLET. PO SCH (09:00)
[2016-08-16] MEDS: ASPIRIN ENTERIC COATED 81 MG TABLET.DR. PO SCH (09:11)
[2016-08-16] MEDS: POTASSIUM CHLORIDE 10 MEQ TABLET.ER. PO SCH (09:13)
[2016-08-16] MEDS: HYDROcodone/APAP 5/325MG 1 TAB TABLET PO PRN (09:13)
[2016-08-16] MEDS: CLOPIDOGREL BISULFATE 75 MG TABLET PO SCH (09:14)
[2016-08-16] MEDS: ATENOLOL 50 MG TABLET. PO SCH (09:14)
[2016-08-16] MEDS: BACLOFEN 10 MG TABLET. PO SCH ×2 (09:14→22:16)
[2016-08-16] MEDS: FUROSEMIDE 40 MG TABLET. PO SCH (09:14)
--- NOTE | 2016-08-16 09:30 | PDOC ---
PROGRESS NOTES Chief Complaint Chief Complaint cc: fall A/P 1. Distal tibial fracture in remission. 2. Status post mechanical fall. 3. Mild elevation of troponin, N-STEMI. 4. Hyperglycemia, type 2 diabetes mellitus. 5. AMS duet o medications, narcotics, resolved. 6. Right AKA. 7. Depression. 8. Hyperlipidemia. 9. Hypertension. Plan No surgical plans Pt doesn't want any intervention such as cath polypharmacy needs limit medications limit Lasix mild iv hydration unknown baseline status. limit beta blockers. . Vitals Vitals Vital Signs Date Time Temp Pulse Resp B/P (MAP) Pulse Ox O2 Delivery O2 Flow Rate FiO2 08/16/16 09:14 66 114/45 08/16/16 09:13 90 Nasal Cannula 3.0 08/16/16 07:00 98.1 18 98.1 Physical Exam General: Alert, Oriented X3, Cooperative, No acute distress Heart: Regular rate, Normal S1, Normal S2, No murmurs Lungs: Clear Abdomen: Soft, No tenderness Extremities: No cyanosis, Other (unable to asses LLE due to leg wrap and splint but positive for sensation, mobility, toes warm to touch. ) Labs LABS Laboratory Tests Test 08/15/16 11:30 08/15/16 14:50 08/15/16 16:51 08/15/16 20:48 Glucose (Fingerstick) 185 mg/dL (70-99) 173 mg/dL (70-99) 180 mg/dL (70-99) Troponin I Quantitative 0.761 ng/mL (0.000-0.055) Test 08/16/16 04:05 08/16/16 08:34 White Blood Count 8.4 x10^3/uL (4.0-11.0) Red Blood Count 5.18 x10^6/uL (4.30-5.70) Hemoglobin 14.5 g/dL (13.0-17.5) Hematocrit 44.8 % (39.0-53.0) Mean Corpuscular Volume 86 fL (79-100) Mean Corpuscular Hemoglobin 28 pg (25-35) Mean Corpuscular Hemoglobin Concent 32 g/dL (31-37) Red Cell Distribution Width 15.9 % (11.5-14.5) Platelet Count 209 x10^3/uL (140-400) Neutrophils (%) (Auto) 61 % (31-73) Lymphocytes (%) (Auto) 27 % (24-48) Monocytes (%) (Auto) 11 % (0-9) Eosinophils (%) (Auto) 2 % (0-3) Basophils (%) (Auto) 1 % (0-3) Neutrophils # (Auto) 5.1 x10^3uL (1.8-7.7) Lymphocytes # (Auto) 2.2 x10^3/uL (1.0-4.8) Monocytes # (Auto) 0.9 x10^3/uL (0.0-1.1) Eosinophils # (Auto) 0.1 x10^3/uL (0.0-0.7) Basophils # (Auto) 0.1 x10^3/uL (0.0-0.2) Sodium Level 142 mmol/L (136-145) Potassium Level 3.7 mmol/L (3.5-5.1) Chloride Level 101 mmol/L (98-107) Carbon Dioxide Level 38 mmol/L (21-32) Anion Gap 3 (6-14) Blood Urea Nitrogen 14 mg/dL (8-26) Creatinine 0.9 mg/dL (0.7-1.3) Estimated GFR (Cockcroft-Gault) 85.0 Glucose Level 147 mg/dL (70-99) Calcium Level 8.9 mg/dL (8.5-10.1) Glucose (Fingerstick) 136 mg/dL (70-99) Assessment and Plan Assessmemt and Plan Problems Medical Problems: (1) Fracture of distal end of tibia Status: Acute (2) Opiate overdose Status: Acute Problems: Comment Review of Relevant I have reviewed the following items marcelle (where applicable) has been applied. Labs Laboratory Tests Test 08/15/16 02:09 08/15/16 07:44 08/15/16 09:05 08/15/16 11:30 White Blood Count 10.9 x10^3/uL (4.0-11.0) Red Blood Count 5.56 x10^6/uL (4.30-5.70) Hemoglobin 15.5 g/dL (13.0-17.5) Hematocrit 48.7 % (39.0-53.0) Mean Corpuscular Volume 88 fL (79-100) Mean Corpuscular Hemoglobin 28 pg (25-35) Mean Corpuscular Hemoglobin Concent 32 g/dL (31-37) Red Cell Distribution Width 16.0 % (11.5-14.5) Platelet Count 227 x10^3/uL (140-400) Neutrophils (%) (Auto) 67 % (31-73) Lymphocytes (%) (Auto) 24 % (24-48) Monocytes (%) (Auto) 8 % (0-9) Eosinophils (%) (Auto) 1 % (0-3) Basophils (%) (Auto) 1 % (0-3) Neutrophils # (Auto) 7.3 x10^3uL (1.8-7.7) Lymphocytes # (Auto) 2.6 x10^3/uL (1.0-4.8) Monocytes # (Auto) 0.9 x10^3/uL (0.0-1.1) Eosinophils # (Auto) 0.1 x10^3/uL (0.0-0.7) Basophils # (Auto) 0.1 x10^3/uL (0.0-0.2) Sodium Level 140 mmol/L (136-145) Potassium Level 5.0 mmol/L (3.5-5.1) Chloride Level 101 mmol/L (98-107) Carbon Dioxide Level 36 mmol/L (21-32) Anion Gap 3 (6-14) Blood Urea Nitrogen 17 mg/dL (8-26) Creatinine 1.0 mg/dL (0.7-1.3) Estimated GFR (Cockcroft-Gault) 75.2 BUN/Creatinine Ratio 17 (6-20) Glucose Level 135 mg/dL (70-99) Calcium Level 9.2 mg/dL (8.5-10.1) Total Bilirubin 0.3 mg/dL (0.2-1.0) Aspartate Amino Transf (AST/SGOT) 44 U/L (15-37) Alanine Aminotransferase (ALT/SGPT) 38 U/L (16-63) Alkaline Phosphatase 117 U/L (46-116) Troponin I Quantitative 1.212 ng/mL (0.000-0.055) 0.887 ng/mL (0.000-0.055) US-Lig-Q-Type Natriuretic Peptide 1027 pg/mL (0-124) Total Protein 8.1 g/dL (6.4-8.2) Albumin 3.3 g/dL (3.4-5.0) Albumin/Globulin Ratio 0.7 (1.0-1.7) Glucose (Fingerstick) 185 mg/dL (70-99) 185 mg/dL (70-99) Creatine Kinase 431 U/L (39-308) Myoglobin 159 ng/mL (16-96) Test 08/15/16 14:50 08/15/16 16:51 08/15/16 20:48 08/16/16 04:05 Troponin I Quantitative 0.761 ng/mL (0.000-0.055) Glucose (Fingerstick) 173 mg/dL (70-99) 180 mg/dL (70-99) White Blood Count 8.4 x10^3/uL (4.0-11.0) Red Blood Count 5.18 x10^6/uL (4.30-5.70) Hemoglobin 14.5 g/dL (13.0-17.5) Hematocrit 44.8 % (39.0-53.0) Mean Corpuscular Volume 86 fL (79-100) Mean Corpuscular Hemoglobin 28 pg (25-35) Mean Corpuscular Hemoglobin Concent 32 g/dL (31-37) Red Cell Distribution Width 15.9 % (11.5-14.5) Platelet Count 209 x10^3/uL (140-400) Neutrophils (%) (Auto) 61 % (31-73) Lymphocytes (%) (Auto) 27 % (24-48) Monocytes (%) (Auto) 11 % (0-9) Eosinophils (%) (Auto) 2 % (0-3) Basophils (%) (Auto) 1 % (0-3) Neutrophils # (Auto) 5.1 x10^3uL (1.8-7.7) Lymphocytes # (Auto) 2.2 x10^3/uL (1.0-4.8) Monocytes # (Auto) 0.9 x10^3/uL (0.0-1.1) Eosinophils # (Auto) 0.1 x10^3/uL (0.0-0.7) Basophils # (Auto) 0.1 x10^3/uL (0.0-0.2) Sodium Level 142 mmol/L (136-145) Potassium Level 3.7 mmol/L (3.5-5.1) Chloride Level 101 mmol/L (98-107) Carbon Dioxide Level 38 mmol/L (21-32) Anion Gap 3 (6-14) Blood Urea Nitrogen 14 mg/dL (8-26) Creatinine 0.9 mg/dL (0.7-1.3) Estimated GFR (Cockcroft-Gault) 85.0 Glucose Level 147 mg/dL (70-99) Calcium Level 8.9 mg/dL (8.5-10.1) Test 08/16/16 08:34 Glucose (Fingerstick) 136 mg/dL (70-99) Laboratory Tests Test 08/15/16 11:30 08/15/16 14:50 08/15/16 16:51 08/15/16 20:48 Glucose (Fingerstick) 185 mg/dL (70-99) 173 mg/dL (70-99) 180 mg/dL (70-99) Troponin I Quantitative 0.761 ng/mL (0.000-0.055) Test 08/16/16 04:05 08/16/16 08:34 White Blood Count 8.4 x10^3/uL (4.0-11.0) Red Blood Count 5.18 x10^6/uL (4.30-5.70) Hemoglobin 14.5 g/dL (13.0-17.5) Hematocrit 44.8 % (39.0-53.0) Mean Corpuscular Volume 86 fL (79-100) Mean Corpuscular Hemoglobin 28 pg (25-35) Mean Corpuscular Hemoglobin Concent 32 g/dL (31-37) Red Cell Distribution Width 15.9 % (11.5-14.5) Platelet Count 209 x10^3/uL (140-400) Neutrophils (%) (Auto) 61 % (31-73) Lymphocytes (%) (Auto) 27 % (24-48) Monocytes (%) (Auto) 11 % (0-9) Eosinophils (%) (Auto) 2 % (0-3) Basophils (%) (Auto) 1 % (0-3) Neutrophils # (Auto) 5.1 x10^3uL (1.8-7.7) Lymphocytes # (Auto) 2.2 x10^3/uL (1.0-4.8) Monocytes # (Auto) 0.9 x10^3/uL (0.0-1.1) Eosinophils # (Auto) 0.1 x10^3/uL (0.0-0.7) Basophils # (Auto) 0.1 x10^3/uL (0.0-0.2) Sodium Level 142 mmol/L (136-145) Potassium Level 3.7 mmol/L (3.5-5.1) Chloride Level 101 mmol/L (98-107) Carbon Dioxide Level 38 mmol/L (21-32) Anion Gap 3 (6-14) Blood Urea Nitrogen 14 mg/dL (8-26) Creatinine 0.9 mg/dL (0.7-1.3) Estimated GFR (Cockcroft-Gault) 85.0 Glucose Level 147 mg/dL (70-99) Calcium Level 8.9 mg/dL (8.5-10.1) Glucose (Fingerstick) 136 mg/dL (70-99) Medications Current Medications Naloxone HCl (Narcan) 0.4 mg STK-MED ONCE .ROUTE ; Start 08/15/16 at 01:56; Stop 08/15/16 at 01:57; Status DC Naloxone HCl (Narcan) 0.8 mg 1X ONCE IV ; Start 08/15/16 at 02:30; Stop at 02:31; Status DC Naloxone HCl (Narcan) 0.8 mg 1X ONCE IM Last administered on 08/15/16 02:00; Start 08/15/16 at 03:00; Stop 08/15/16 at 03:01; Status DC Fentanyl Citrate (Fentanyl 2ml Vial) 50 mcg 1X ONCE IV Last administered on 02:48; Start 08/15/16 at 03:00; Stop 08/15/16 at 03:01; Status DC Furosemide (Lasix) 40 mg 1X ONCE IVP Last administered on 08/15/16 03:45; Start 08/15/16 at 03:30; Stop 08/15/16 at 03:31; Status DC Aspirin (Juan Francisco Aspirin) 325 mg 1X ONCE PO Last administered on 08/15/16 03:45 ; Start 08/15/16 at 03:30; Stop 08/15/16 at 03:31; Status DC Fentanyl Citrate (Fentanyl 2ml Vial) 50 mcg PRN Q15MIN PRN IV PAIN GREATER THAN 3/10 Last administered on 08/15/16 05:59; Start 08/15/16 at 03:15; Stop at 03:14; Status DC Ondansetron HCl (Zofran) 4 mg PRN Q8HRS PRN IV NAUSEA/VOMITING; Start 08/15/16 at 03:15; Stop 08/16/16 at 03:14; Status DC Morphine Sulfate 2 mg PRN Q2HR PRN IV SEVERE PAIN Last administered on 13:24; Start 08/15/16 at 03:15; Stop 08/16/16 at 03:14; Status DC Acetaminophen (Tylenol) 650 mg PRN Q4HRS PRN PO FEVER; Start 08/15/16 at 03:15 ; Stop 08/16/16 at 03:14; Status DC Nitroglycerin (Nitrostat) 0.4 mg PRN Q5MIN PRN SL CHEST PAIN; Start 08/15/16 at 03:15; Stop 08/16/16 at 03:14; Status DC Acetaminophen (Tylenol) 325 mg PRN Q6HRS PRN PO MILD PAIN / TEMP; Start at 09:00 Acetaminophen/ Hydrocodone Bitart (Lortab 5/325) 1 tab PRN Q6HRS PRN PO MODERATE TO SEVERE PAIN Last administered on 08/16/16 09:13; Start 08/15/16 at 09:00 Hydralazine HCl (Apresoline) 10 mg PRN Q4HRS PRN IVP ELEVATED BP, SEE COMMENTS ; Start 08/15/16 at 09:00 Ondansetron HCl (Zofran) 4 mg PRN Q8HRS PRN IV NAUSEA/VOMITING; Start 08/15/16 at 09:00 Albuterol Sulfate (Ventolin Neb Soln) 2.5 mg PRN Q4HRS PRN NEB SHORTNESS OF BREATH; Start 08/15/16 at 09:00 Amlodipine Besylate (Norvasc) 10 mg DAILY PO Last administered on 08/15/16 10: 31; Start 08/15/16 at 10:30 Atenolol (Tenormin) 50 mg BID PO Last administered on 08/16/16 09:14; Start at 10:30 Furosemide (Lasix) 40 mg DAILY PO Last administered on 08/16/16 09:14; Start 08/15/16 at 10:30 Enoxaparin Sodium (Lovenox 40mg Syringe) 40 mg Q24H SQ Last administered on 13:25; Start 08/15/16 at 12:00 Aspirin (Ecotrin) 81 mg DAILYWBKFT PO Last administered on 08/16/16 09:11; Start 08/16/16 at 08:00 Clopidogrel Bisulfate (Plavix) 75 mg DAILYWBKFT PO Last administered on 09:14; Start 08/15/16 at 14:00 Atorvastatin Calcium (Lipitor) 10 mg QHS PO ; Start 08/15/16 at 21:00; Status Cancel Aspirin (Children'S Aspirin) 81 mg DAILY PO ; Start 08/16/16 at 09:00; Status UNV Baclofen (Lioresal) 10 mg BID PO Last administered on 08/16/16 09:14; Start at 21:00 Losartan Potassium (Cozaar) 100 mg DAILY PO Last administered on 08/15/16 16: 31; Start 08/15/16 at 15:30 Nitroglycerin (Nitrostat) 0.4 mg PRN Q5MIN PRN SL CHEST PAIN; Start 08/15/16 at 15:00 Silver Sulfadiazine (Silvadene) 1 kareem DAILY TP ; Start 08/16/16 at 09:00 Temazepam (Restoril) 30 mg QHS PO Last administered on 08/15/16 21:35; Start 08/15/16 at 21:00 Escitalopram Oxalate (Lexapro) 10 mg QHS PO Last administered on 08/15/16 21: 34; Start 08/15/16 at 21:00 Insulin Detemir (Levemir) 60 units DAILY SQ Last administered on 08/15/16 16: 33; Start 08/15/16 at 15:30 Insulin Aspart (NovoLOG) 6 units TIDAC SQ Last administered on 08/15/16 16:34 ; Start 08/15/16 at 16:30 Oxycodone HCl (Roxicodone) 15 mg PRN Q6HRS PRN PO PAIN Last administered on 03:20; Start 08/15/16 at 15:00 Potassium Chloride (Klor-Con) 10 meq DAILYWBKFT PO Last administered on 09:13; Start 08/16/16 at 08:00 Atorvastatin Calcium (Lipitor) 80 mg QHS PO Last administered on 08/15/16 21: 34; Start 08/15/16 at 21:00 Active Scripts Active Ms Contin (Morphine Sulfate) 30 Mg Tablet.er 30 Tab PO BID Vancomycin Hcl 500 Mg Vial 250 Mg PO [id number] 7 Days Amoxicillin 875 Mg Tablet 1 Tab PO BID Reported Silvadene (Silver Sulfadiazine) 20 Gm Cream..g. 1 Kareem TP DAILY Nystatin 15 Gm Powder 1 Kareem TP BID Colace (Docusate Sodium) 100 Mg Capsule 100 Mg PO PRN DAILY PRN Zinc Oxide 30 Gm Oint...g. 30 Gm TP BID patti inner buttocks Vitamin D3 (Cholecalciferol (Vitamin D3)) 5,000 Unit Tablet 1 Tab PO DAILY Stress B With Zinc Tablet (Multivits,Stress Formula/Zinc) 1 Each Tablet 1 Each PO DAILY Soma (Carisoprodol) 350 Mg Tablet 1 Tab PO HS Potassium Chloride 10 Meq Capsule.er 10 Meq PO DAILY Oxycodone Hcl 15 Mg Tablet 1 Tab PO Q6HRS PRN Norvasc (Amlodipine Besylate) 10 Mg Tablet 10 Mg PO DAILY Nitrostat (Nitroglycerin) 0.4 Mg Tab.subl 0.4 Mg SL PRN Q5MIN PRN Magnesium (Magnesium Oxide) 400 Mg Capsule 400 Mg PO DAILY Lyrica (Pregabalin) 75 Mg Capsule 75 Mg PO TID Escitalopram Oxalate 10 Mg Tablet 1 Tab PO HS Lasix (Furosemide) 40 Mg Tablet 1 Tab PO DAILY Lantus (Insulin Glargine,Hum.rec.anlog) 100 Unit/1 Ml Vial 60 Unit SQ DAILY Imodium A-D (Loperamide HCl) 2 Mg Capsule 2 Mg PO PRN PRN after each loose stool up to 16mg in 24 hours Humalog (Insulin Lispro) 100 Unit/1 Ml Insuln.pen 0-8 Unit SQ TIDAC if fs bs 150-200= 1 unit 201-250= 2 units 250-300= 4 units 301-350= 6 units 351-400= 8 units >[address] [place] (Insulin Lispro) 100 Unit/1 Ml Cartridge 6 Unit SQ TIDAC Baclofen 10 Mg Tablet 1 Tab PO BID Ascorbic Acid 500 Mg Tablet 500 Mg PO DAILY Androgel (Testosterone) 5 Gm Gel.packet 2.5 Gm TP QODAY Tylenol (Acetaminophen) 325 Mg Tablet 650 Mg PO Q6HRS PRN Carisoprodol 350 Mg Tablet 350 Mg PO Q8HRS PRN Temazepam 30 Mg Capsule 1 Cap PO QHS Crestor (Rosuvastatin Calcium) 40 Mg Tablet 20 Mg PO QHS Losartan Potassium 50 Mg Tablet 100 Mg PO DAILY Atenolol 50 Mg Tablet 1 Tab PO BID Metformin Hcl 500 Mg Tablet 1 Tab PO BID Aspirin 81 Mg Tab.chew 81 Mg PO DAILY Sennosides-Docusate Sodium Tab (Sennosides/Docusate Sodium) 1 Each Tablet 2 Each PO BID Miralax (Polyethylene Glycol 3350) 17 Gm Powd.pack 17 Gm PO PRN PRN Vitals/I & O Vital Sign - Last 24 Hours 08/15/16 08/15/16 08/15/16 08/15/16 09:51 10:21 10:31 10:32 Pulse 69 69 Resp 16 B/P (MAP) 108/57 108/57 Pulse Ox 93 93 O2 Delivery Nasal Cannula Nasal Cannula O2 Flow Rate 4.0 4.0 08/15/16 08/15/16 08/15/16 08/15/16 10:49 11:15 11:58 13:24 Temp 98.2 98.2 98.2 98.2 Pulse 64 64 Resp 20 20 18 B/P (MAP) 116/58 (77) 116/58 (77) Pulse Ox 91 91 98 98 O2 Delivery Nasal Cannula Nasal Cannula Nasal Cannula Nasal Cannula O2 Flow Rate 2.0 2.0 08/15/16 08/15/16 08/15/16 08/15/16 13:24 15:41 16:31 19:00 Temp 97.5 98.1 97.5 98.1 Pulse 60 60 64 Resp 18 20 15 B/P (MAP) 106/60 (75) 106/60 143/64 (90) Pulse Ox 98 95 93 O2 Delivery Nasal Cannula Nasal Cannula Nasal Cannula O2 Flow Rate 2.0 3.0 08/15/16 08/15/16 08/15/16 08/15/16 20:00 21:35 21:36 22:36 Pulse 60 Resp 18 18 B/P (MAP) 143/64 Pulse Ox 93 93 O2 Delivery Nasal Cannula Nasal Cannula Nasal Cannula O2 Flow Rate 4.0 3.0 3.0 08/15/16 08/16/16 08/16/16 08/16/16 23:00 03:00 03:20 04:20 Temp 98.3 97.8 98.3 97.8 Pulse 71 61 Resp 16 18 18 18 B/P (MAP) 98/59 (72) 127/56 (79) Pulse Ox 93 93 93 93 O2 Delivery Nasal Cannula Nasal Cannula Nasal Cannula Nasal Cannula O2 Flow Rate 3.0 3.0 3.0 3.0 08/16/16 08/16/16 08/16/16 08/16/16 07:00 09:00 09:13 09:14 Temp 98.1 98.1 Pulse 66 66 66 Resp 18 B/P (MAP) 114/45 (68) 114/45 114/45 Pulse Ox 90 90 O2 Delivery Nasal Cannula Nasal Cannula O2 Flow Rate 3.0 3.0 Intake and Output 08/15/16 08/15/16 08/16/16 15:00 23:00 07:00 Intake Total 240 ml 100 ml Output Total 2400 ml 400 ml Balance 240 ml -2400 ml -300 ml LYNDON WYATT MD Aug 16, 2016 09:29
[2016-08-16 11:00] VITALS: BP 141/73
--- NOTE | 2016-08-16 11:06 | PDOC ---
ORTHO PROGRESS NOTES Subjective Unable to get boot yesterday. Patient denies any change in his pain. Vitals Vital Signs Date Time Temp Pulse Resp B/P (MAP) Pulse Ox O2 Delivery O2 Flow Rate FiO2 08/16/16 09:14 66 114/45 08/16/16 09:13 90 Nasal Cannula 3.0 08/16/16 07:00 98.1 18 98.1 Labs Laboratory Tests Test 08/15/16 02:09 08/15/16 07:44 08/15/16 09:05 08/15/16 11:30 White Blood Count 10.9 x10^3/uL (4.0-11.0) Red Blood Count 5.56 x10^6/uL (4.30-5.70) Hemoglobin 15.5 g/dL (13.0-17.5) Hematocrit 48.7 % (39.0-53.0) Mean Corpuscular Volume 88 fL (79-100) Mean Corpuscular Hemoglobin 28 pg (25-35) Mean Corpuscular Hemoglobin Concent 32 g/dL (31-37) Red Cell Distribution Width 16.0 % (11.5-14.5) Platelet Count 227 x10^3/uL (140-400) Neutrophils (%) (Auto) 67 % (31-73) Lymphocytes (%) (Auto) 24 % (24-48) Monocytes (%) (Auto) 8 % (0-9) Eosinophils (%) (Auto) 1 % (0-3) Basophils (%) (Auto) 1 % (0-3) Neutrophils # (Auto) 7.3 x10^3uL (1.8-7.7) Lymphocytes # (Auto) 2.6 x10^3/uL (1.0-4.8) Monocytes # (Auto) 0.9 x10^3/uL (0.0-1.1) Eosinophils # (Auto) 0.1 x10^3/uL (0.0-0.7) Basophils # (Auto) 0.1 x10^3/uL (0.0-0.2) Sodium Level 140 mmol/L (136-145) Potassium Level 5.0 mmol/L (3.5-5.1) Chloride Level 101 mmol/L (98-107) Carbon Dioxide Level 36 mmol/L (21-32) Anion Gap 3 (6-14) Blood Urea Nitrogen 17 mg/dL (8-26) Creatinine 1.0 mg/dL (0.7-1.3) Estimated GFR (Cockcroft-Gault) 75.2 BUN/Creatinine Ratio 17 (6-20) Glucose Level 135 mg/dL (70-99) Calcium Level 9.2 mg/dL (8.5-10.1) Total Bilirubin 0.3 mg/dL (0.2-1.0) Aspartate Amino Transf (AST/SGOT) 44 U/L (15-37) Alanine Aminotransferase (ALT/SGPT) 38 U/L (16-63) Alkaline Phosphatase 117 U/L (46-116) Troponin I Quantitative 1.212 ng/mL (0.000-0.055) 0.887 ng/mL (0.000-0.055) HW-Uvb-B-Type Natriuretic Peptide 1027 pg/mL (0-124) Total Protein 8.1 g/dL (6.4-8.2) Albumin 3.3 g/dL (3.4-5.0) Albumin/Globulin Ratio 0.7 (1.0-1.7) Glucose (Fingerstick) 185 mg/dL (70-99) 185 mg/dL (70-99) Creatine Kinase 431 U/L (39-308) Myoglobin 159 ng/mL (16-96) Test 08/15/16 14:50 08/15/16 16:51 08/15/16 20:48 08/16/16 04:05 Troponin I Quantitative 0.761 ng/mL (0.000-0.055) Glucose (Fingerstick) 173 mg/dL (70-99) 180 mg/dL (70-99) White Blood Count 8.4 x10^3/uL (4.0-11.0) Red Blood Count 5.18 x10^6/uL (4.30-5.70) Hemoglobin 14.5 g/dL (13.0-17.5) Hematocrit 44.8 % (39.0-53.0) Mean Corpuscular Volume 86 fL (79-100) Mean Corpuscular Hemoglobin 28 pg (25-35) Mean Corpuscular Hemoglobin Concent 32 g/dL (31-37) Red Cell Distribution Width 15.9 % (11.5-14.5) Platelet Count 209 x10^3/uL (140-400) Neutrophils (%) (Auto) 61 % (31-73) Lymphocytes (%) (Auto) 27 % (24-48) Monocytes (%) (Auto) 11 % (0-9) Eosinophils (%) (Auto) 2 % (0-3) Basophils (%) (Auto) 1 % (0-3) Neutrophils # (Auto) 5.1 x10^3uL (1.8-7.7) Lymphocytes # (Auto) 2.2 x10^3/uL (1.0-4.8) Monocytes # (Auto) 0.9 x10^3/uL (0.0-1.1) Eosinophils # (Auto) 0.1 x10^3/uL (0.0-0.7) Basophils # (Auto) 0.1 x10^3/uL (0.0-0.2) Sodium Level 142 mmol/L (136-145) Potassium Level 3.7 mmol/L (3.5-5.1) Chloride Level 101 mmol/L (98-107) Carbon Dioxide Level 38 mmol/L (21-32) Anion Gap 3 (6-14) Blood Urea Nitrogen 14 mg/dL (8-26) Creatinine 0.9 mg/dL (0.7-1.3) Estimated GFR (Cockcroft-Gault) 85.0 Glucose Level 147 mg/dL (70-99) Calcium Level 8.9 mg/dL (8.5-10.1) Test 08/16/16 08:34 Glucose (Fingerstick) 136 mg/dL (70-99) Laboratory Tests Test 08/15/16 11:30 08/15/16 14:50 08/15/16 16:51 08/15/16 20:48 Glucose (Fingerstick) 185 mg/dL (70-99) 173 mg/dL (70-99) 180 mg/dL (70-99) Troponin I Quantitative 0.761 ng/mL (0.000-0.055) Test 08/16/16 04:05 08/16/16 08:34 White Blood Count 8.4 x10^3/uL (4.0-11.0) Red Blood Count 5.18 x10^6/uL (4.30-5.70) Hemoglobin 14.5 g/dL (13.0-17.5) Hematocrit 44.8 % (39.0-53.0) Mean Corpuscular Volume 86 fL (79-100) Mean Corpuscular Hemoglobin 28 pg (25-35) Mean Corpuscular Hemoglobin Concent 32 g/dL (31-37) Red Cell Distribution Width 15.9 % (11.5-14.5) Platelet Count 209 x10^3/uL (140-400) Neutrophils (%) (Auto) 61 % (31-73) Lymphocytes (%) (Auto) 27 % (24-48) Monocytes (%) (Auto) 11 % (0-9) Eosinophils (%) (Auto) 2 % (0-3) Basophils (%) (Auto) 1 % (0-3) Neutrophils # (Auto) 5.1 x10^3uL (1.8-7.7) Lymphocytes # (Auto) 2.2 x10^3/uL (1.0-4.8) Monocytes # (Auto) 0.9 x10^3/uL (0.0-1.1) Eosinophils # (Auto) 0.1 x10^3/uL (0.0-0.7) Basophils # (Auto) 0.1 x10^3/uL (0.0-0.2) Sodium Level 142 mmol/L (136-145) Potassium Level 3.7 mmol/L (3.5-5.1) Chloride Level 101 mmol/L (98-107) Carbon Dioxide Level 38 mmol/L (21-32) Anion Gap 3 (6-14) Blood Urea Nitrogen 14 mg/dL (8-26) Creatinine 0.9 mg/dL (0.7-1.3) Estimated GFR (Cockcroft-Gault) 85.0 Glucose Level 147 mg/dL (70-99) Calcium Level 8.9 mg/dL (8.5-10.1) Glucose (Fingerstick) 136 mg/dL (70-99) Notes He is resting, easily awakens. Examination of his left lower extremity reveals continued tenderness over his distal tibia region. Compartments are soft. No pain with passive range of motion. Still has edema present, unchanged from prior encounter. Assessment and Plan He'll be nonweightbearing 6 weeks. He should remain in the walking boot, okay to remove her one to 2 hours per day while at rest. CALEB FREY II, MD Aug 16, 2016 11:06
--- NOTE | 2016-08-16 11:26 | PDOC ---
CARDIO Progress Notes Date and Time Date of Service 08/16/2016 Time of Evaluation 1030 Subjective Subjective: No Chest Pain, No shortness of breath, No Palpitations, No Dizziness, Other (complians of LLE pain from fracture) Vitals Vitals Vital Signs Date Time Temp Pulse Resp B/P (MAP) Pulse Ox O2 Delivery O2 Flow Rate FiO2 08/16/16 09:14 66 114/45 08/16/16 09:13 90 Nasal Cannula 3.0 08/16/16 07:00 98.1 18 98.1 Weight Weight [ ] Input and Output Intake and Output Intake and Output 08/16/16 07:00 Intake Total 340 ml Output Total 2800 ml Balance -2460 ml Intake Oral 340 ml Output Urine Total 2800 ml Laboratory Labs Laboratory Tests Test 08/15/16 11:30 08/15/16 14:50 08/15/16 16:51 08/15/16 20:48 Glucose (Fingerstick) 185 mg/dL (70-99) 173 mg/dL (70-99) 180 mg/dL (70-99) Troponin I Quantitative 0.761 ng/mL (0.000-0.055) Test 08/16/16 04:05 08/16/16 08:34 White Blood Count 8.4 x10^3/uL (4.0-11.0) Red Blood Count 5.18 x10^6/uL (4.30-5.70) Hemoglobin 14.5 g/dL (13.0-17.5) Hematocrit 44.8 % (39.0-53.0) Mean Corpuscular Volume 86 fL (79-100) Mean Corpuscular Hemoglobin 28 pg (25-35) Mean Corpuscular Hemoglobin Concent 32 g/dL (31-37) Red Cell Distribution Width 15.9 % (11.5-14.5) Platelet Count 209 x10^3/uL (140-400) Neutrophils (%) (Auto) 61 % (31-73) Lymphocytes (%) (Auto) 27 % (24-48) Monocytes (%) (Auto) 11 % (0-9) Eosinophils (%) (Auto) 2 % (0-3) Basophils (%) (Auto) 1 % (0-3) Neutrophils # (Auto) 5.1 x10^3uL (1.8-7.7) Lymphocytes # (Auto) 2.2 x10^3/uL (1.0-4.8) Monocytes # (Auto) 0.9 x10^3/uL (0.0-1.1) Eosinophils # (Auto) 0.1 x10^3/uL (0.0-0.7) Basophils # (Auto) 0.1 x10^3/uL (0.0-0.2) Sodium Level 142 mmol/L (136-145) Potassium Level 3.7 mmol/L (3.5-5.1) Chloride Level 101 mmol/L (98-107) Carbon Dioxide Level 38 mmol/L (21-32) Anion Gap 3 (6-14) Blood Urea Nitrogen 14 mg/dL (8-26) Creatinine 0.9 mg/dL (0.7-1.3) Estimated GFR (Cockcroft-Gault) 85.0 Glucose Level 147 mg/dL (70-99) Calcium Level 8.9 mg/dL (8.5-10.1) Glucose (Fingerstick) 136 mg/dL (70-99) Physical Exam HEENT: Neck Supple W Full Motion Chest: Symmetric LUNGS: Clear to Auscultation Heart: S1S2, RRR (SR) Abdomen: Soft N/T, Other (truncal obesity) Extremities: Other (neurovascular status to LLE intact) Neurology: alert, oriented, follow commands Assessment Assessment 1. Traumatic fall: left tibial fracture. nonsurgical per ortho 2. Rhabdomyolysis 3. NSTEMI: Peaked at 1.2, no significant changes with EKG by comparison. Likely type 2. No cardiac symptoms. EF normal with normal wall motion 4. Acute on chronic diastolic CHF: compensated 5. CAD: PCI/stent in past, unknown date. stable 6. PAD: fempop in the past and RAKA 7. HTN: controlled 8. HLP: HDL low otherwise close to goal from recent lipids. 9. DM2 10. UTI Recommendations 1. Pt does not want any invasive cardiac testing after significant discussion. Will treat medically 3. Continue with secondary prevention. ASA/plavix 4. Continue current antiHTN, secondary prevention. ASA/plavix 5. Period of HR in the 40s. Will decrease atenolol. 6. Follow up in office in 4 weeks. RUMA KAPLAN APRN Aug 16, 2016 11:26
[2016-08-16] MEDS: INSULIN DETEMIR 300 UNITS/3 ML INSULN.PEN. SQ SCH (12:43)
[2016-08-16] MEDS: ENOXAPARIN 40 MG/0.4 ML SYRINGE. SQ SCH (14:53)
[2016-08-16 15:00] VITALS: BP 132/67
[2016-08-16 19:25] VITALS: BP 121/66
[2016-08-16] MEDS: ESCITALOPRAM 10 MG TABLET. PO SCH (22:15)
[2016-08-16] MEDS: TEMAZEPAM 15 MG CAPSULE PO SCH (22:15)
[2016-08-16] MEDS: ATORVASTATIN CALCIUM 40 MG TABLET. PO SCH (22:16)
[2016-08-16 23:40] VITALS: BP 124/61
[2016-08-17 03:45] VITALS: BP 140/66
[2016-08-17] MEDS: HYDROcodone/APAP 5/325MG 1 TAB TABLET PO PRN (04:02)
[2016-08-17 04:14] LABS: BASO # 0.1 x10^3/uL (0.0-0.2); BASO % 1 % (0-3); EOS % 3 % (0-3); HEMATOCRIT 43.9 % (39.0-53.0); HEMOGLOBIN 14.7 g/dL (13.0-17.5); LYMPH # 2.7 x10^3/uL (1.0-4.8); LYMPH % 31 % (24-48); MEAN CORPUSCULAR HEMOGLOBIN 28 pg (25-35); MEAN CORPUSCULAR HGB CONC 34 g/dL (31-37); MEAN CORPUSCULAR VOLUME 84 fL (79-100); MONO % 11 % (0-9); NEUT % 55 % (31-73); PLATELET COUNT 223 x10^3/uL (140-400); RED BLOOD COUNT 5.23 x10^6/uL (4.30-5.70); RED CELL DISTRIBUTION WIDTH 15.7 % (11.5-14.5); WHITE BLOOD COUNT 8.8 x10^3/uL (4.0-11.0)
[2016-08-17 04:20] LABS: CALCIUM 8.8 mg/dL (8.5-10.1); CREATININE 0.8 mg/dL (0.7-1.3); GFR 97.3; POTASSIUM 3.3 mmol/L (3.5-5.1)
[2016-08-17 07:52] VITALS: BP 146/65
[2016-08-17] MEDS ORDERED: ATENOLOL 50 MG TABLET. PO SCH (09:00)
[2016-08-17] MEDS: silver sulfADIAZINE 1% CREAM 25GM TUBE. TP SCH (09:00)
[2016-08-17] MEDS: BACLOFEN 10 MG TABLET. PO SCH (09:00)
[2016-08-17] MEDS: POTASSIUM CHLORIDE 10 MEQ TABLET.ER. PO SCH (09:06)
[2016-08-17] MEDS: ASPIRIN ENTERIC COATED 81 MG TABLET.DR. PO SCH (09:06)
[2016-08-17] MEDS: CLOPIDOGREL BISULFATE 75 MG TABLET PO SCH (09:06)
[2016-08-17] MEDS: amLODIPine BESYLATE 10 MG TABLET PO SCH (09:06)
[2016-08-17] MEDS: LOSARTAN POTASSIUM 50 MG TABLET. PO SCH (09:07)
[2016-08-17] MEDS: FUROSEMIDE 40 MG TABLET. PO SCH (09:07)
[2016-08-17] MEDS: INSULIN ASPART 300 UNITS/3 ML INSULN.PEN SQ SCH ×2 (09:16→12:30)
[2016-08-17] MEDS: INSULIN DETEMIR 300 UNITS/3 ML INSULN.PEN. SQ SCH (09:17)
[2016-08-17] MEDS ORDERED: POTASSIUM CHLORIDE 20 MEQ TABLET.ER. PO ONE (10:00)
[2016-08-17 11:13] VITALS: BP 134/62
[2016-08-17] MEDS: ENOXAPARIN 40 MG/0.4 ML SYRINGE. SQ SCH (12:00)
--- NOTE | 2016-08-23 10:13 | PDOC3 ---
Discharge Summary* Date of Discharge: Aug 17, 2016 Admitting Diagnosis Problems Medical Problems: (1) Fracture of distal end of tibia Status: Acute (2) Opiate overdose Status: Acute Problems: Final Diagnosis 1. Distal tibial fracture 2. Status post mechanical fall. 3. Mild elevation of troponin, N-STEMI. 4. Hyperglycemia, type 2 diabetes mellitus. 5. AMS duet o medications, narcotics, resolved. 6. Right AKA. 7. Depression. 8. Hyperlipidemia. 9. Hypertension. Brief Hospital Course Mr. Rooney is a 66 old Male who presented with fall and distal tibial fracture , however, per orthopedics he is not a candidate for surgery, recommend non weight bearing and walking boots. Also he had mild elevation of troponin, Echo showed normal LVEF, but Pt declined for any invasive procedure, so cardiology signed off. Pt has polypharmacy and recommend to limit narcotics and any sedative to avoid further altered mental state. At the time DC he is stable, mental state is clear, and at this baseline. exam GENERAL: No apparent distress. Alert and oriented times 3 HEENT: Head normocephalic, atraumatic. NECK: Supple LUNGS: Clear to auscultation. HEART: RRR, S1, S2 present, pulses intact ABDOMEN: Soft, positive bowel sounds. Disposition/Orders: Other CONDITION AT DISCHARGE: Improved Scheduled Amlodipine Besylate (Norvasc), 10 MG PO DAILY, (Reported) Amoxicillin (Amoxicillin), 1 TAB PO BID Ascorbic Acid (Ascorbic Acid), 500 MG PO DAILY, (Reported) Aspirin (Aspirin), 81 MG PO DAILY, (Reported) Atenolol (Atenolol), 1 TAB PO BID, (Reported) Baclofen (Baclofen), 1 TAB PO BID, (Reported) Carisoprodol (Soma), 1 TAB PO HS, (Reported) Cholecalciferol (Vitamin D3) (Vitamin D3), 1 TAB PO DAILY, (Reported) Escitalopram Oxalate (Escitalopram Oxalate), 1 TAB PO HS, (Reported) Furosemide (Lasix), 1 TAB PO DAILY, (Reported) Insulin Glargine,Hum.rec.anlog (Lantus), 60 UNIT SQ DAILY, (Reported) Insulin Lispro (Humalog), 6 UNIT SQ TIDAC, (Reported) Insulin Lispro (Humalog), 0-8 UNIT SQ TIDAC, (Reported) Losartan Potassium (Losartan Potassium), 100 MG PO DAILY, (Reported) Magnesium Oxide (Magnesium), 400 MG PO DAILY, (Reported) Metformin Hcl (Metformin Hcl), 1 TAB PO BID, (Reported) Morphine Sulfate Er (Ms Contin), 30 TAB PO BID Multivits,Stress Formula/Zinc (Stress B With Zinc Tablet), 1 EACH PO DAILY, ( Reported) Nystatin (Nystatin), 1 MIRI TP BID, (Reported) Potassium Chloride (Potassium Chloride), 10 MEQ PO DAILY, (Reported) Pregabalin (Lyrica), 75 MG PO TID, (Reported) Rosuvastatin Calcium (Crestor), 20 MG PO QHS, (Reported) Sennosides/Docusate Sodium (Sennosides-Docusate Sodium Tab), 2 EACH PO BID, ( Reported) Silver Sulfadiazine (Silvadene), 1 MIRI TP DAILY, (Reported) Temazepam (Temazepam), 1 CAP PO QHS, (Reported) Testosterone (Androgel), 2.5 GM TP QODAY, (Reported) Vancomycin Hcl (Vancomycin Hcl), 250 MG PO [id number] Zinc Oxide (Zinc Oxide), 30 GM TP BID, (Reported) Scheduled PRN Acetaminophen (Tylenol), 650 MG PO Q6HRS PRN for PAIN, (Reported) Carisoprodol (Carisoprodol), 350 MG PO Q8HRS PRN for PAIN, (Reported) Docusate Sodium (Colace), 100 MG PO PRN DAILY PRN for CONSTIPATION, (Reported) Loperamide HCl (Imodium A-D), 2 MG PO PRN PRN for DIARRHEA, (Reported) Nitroglycerin (Nitrostat), 0.4 MG SL PRN Q5MIN PRN for CHEST PAIN, (Reported) Oxycodone Hcl (Oxycodone Hcl), 1 TAB PO Q6HRS PRN for PAIN, (Reported) Polyethylene Glycol 3350 (Miralax), 17 GM PO PRN PRN for CONSTIPATION, (Reported ) FOLLOW UP APPOINTMENT: WITH PCP in 2-4 weeks Time Spent Total time spent with patient 43 minutes for coordination of care, counseling, and education. LYNDON WYATT MD Aug 23, 2016 10:13
== END 2016-08-17 14:33 | DRG 280 ==
LOC: ER 01:52 → 2 NORTH 03:02
PROVIDERS: ADMIT Internal Medicine; ATTEND Internal Medicine
DX: I21.4 Non-ST elevation (NSTEMI) myocardial infarction (principal); I50.33 Acute on chronic diastolic (congestive) heart failure; N39.0 Urinary tract infection, site not specified; L97.429 Non-pressure chronic ulcer of left heel and midfoot with unspecified severity; M62.82 Rhabdomyolysis; S82.392A Other fracture of lower end of left tibia, initial encounter for closed fracture; E78.00 Pure hypercholesterolemia, unspecified; E78.5 Hyperlipidemia, unspecified; F32.9 Major depressive disorder, single episode, unspecified; E11.65 Type 2 diabetes mellitus with hyperglycemia; M19.90 Unspecified osteoarthritis, unspecified site; I11.0 Hypertensive heart disease with heart failure; G47.00 Insomnia, unspecified; E11.51 Type 2 diabetes mellitus with diabetic peripheral angiopathy without gangrene; I25.10 Atherosclerotic heart disease of native coronary artery without angina pectoris; J45.909 Unspecified asthma, uncomplicated; W19.XXXA Unspecified fall, initial encounter; Y92.129 Unspecified place in nursing home as the place of occurrence of the external cause; Z82.49 Family history of ischemic heart disease and other diseases of the circulatory system; Z83.3 Family history of diabetes mellitus; Z89.611 Acquired absence of right leg above knee; Z95.5 Presence of coronary angioplasty implant and graft; Z88.1 Allergy status to other antibiotic agents; R41.82 Altered mental status, unspecified; T40.605A Adverse effect of unspecified narcotics, initial encounter
CPT/HCPCS: 29515; 36415; 70450; 71010; 73590; 73610; 73700; 80048; 80053; 82550; 82962; 83874; 83880; 84484; 85027; 93005; 93308; 94250; 94760; 96372; 96374; 96375; A4314; J1650; J1815; J1940; J2270; J2310; J3010; 99285-25

== ENCOUNTER 2017-09-09 20:27 | Emergency (ER) | payer BC, OTHER ==
[2017-09-09 21:17] LABS: ADD MAN DIFF? NO
[2017-09-09 21:19] LABS: BASO # 0.1 x10^3/uL (0.0-0.2); BASO % 1 % (0-3); EOS # 0.1 x10^3/uL (0.0-0.7); EOS % 2 % (0-3); HEMATOCRIT 48.7 % (39.0-53.0); LYMPH # 2.2 x10^3/uL (1.0-4.8); LYMPH % 23 % (24-48); MEAN CORPUSCULAR HEMOGLOBIN 26 pg (25-35); MEAN CORPUSCULAR HGB CONC 33 g/dL (31-37); MEAN CORPUSCULAR VOLUME 79 fL (79-100); MONO % 11 % (0-9); NEUT # 6.2 x10^3uL (1.8-7.7); NEUT % 64 % (31-73); PLATELET COUNT 216 x10^3/uL (140-400); RED BLOOD COUNT 6.19 x10^6/uL (4.30-5.70); RED CELL DISTRIBUTION WIDTH 17.9 % (11.5-14.5); WHITE BLOOD COUNT 9.6 x10^3/uL (4.0-11.0)
[2017-09-09 21:20] LABS: BILIRUBIN,URINE NEGATIVE (NEG); CLARITY,URINE CLOUDY; GLUCOSE,URINE NEGATIVE (NEG); NITRITE,URINE POSITIVE (NEG); PROTEIN,URINE NEGATIVE (NEG-TRACE); UROBILINOGEN,URINE 0.2 mg/dL (0.2 mg/dL)
[2017-09-09 21:28] LABS: ANION GAP 9 (6-14); BLOOD UREA NITROGEN 24 mg/dL (8-26); BUN/CREATININE RATIO 20 (6-20); CALCIUM 8.9 mg/dL (8.5-10.1); CARBON DIOXIDE 30 mmol/L (21-32); CHLORIDE 103 mmol/L (98-107); CREATININE 1.2 mg/dL (0.7-1.3); GFR 60.8; GLUCOSE 157 mg/dL (70-99); POTASSIUM 3.9 mmol/L (3.5-5.1); SODIUM 142 mmol/L (136-145)
[2017-09-09 21:31] LABS: BACTERIA,URINE MANY /HPF (0-FEW); SQUAMOUS EPITHELIAL CELL,UR OCC /LPF; WBC,URINE >40 /HPF (0-4)
[2017-09-09 21:32] LABS: COLOR,URINE YELLOW
[2017-09-09 21:34] LABS: ALBUMIN 3.4 g/dL (3.4-5.0); ALBUMIN/GLOBULIN RATIO 0.8 (1.0-1.7); ALK PHOS 89 U/L (46-116); ALT (SGPT) 31 U/L (16-63); AST (SGOT) 47 U/L (15-37); TOTAL BILIRUBIN 0.3 mg/dL (0.2-1.0); TOTAL PROTEIN 7.7 g/dL (6.4-8.2)
[2017-09-09] MEDS: cefTRIAXone IM 1 GM VIAL IM (22:37)
== END 2017-09-10 01:28 | disposition home or self-care (01) ==
LOC: ER 09-10 01:28
DX: N39.0 Urinary tract infection, site not specified (principal); J45.909 Unspecified asthma, uncomplicated; I10 Essential (primary) hypertension; I25.10 Atherosclerotic heart disease of native coronary artery without angina pectoris; F32.9 Major depressive disorder, single episode, unspecified; E11.9 Type 2 diabetes mellitus without complications; E78.00 Pure hypercholesterolemia, unspecified; Z88.1 Allergy status to other antibiotic agents
CPT/HCPCS: 36415; 80053; 81001; 85025; 96372; 99284; J0696